=== PATIENT | male | born 1965 | race Caucasian/White ===

== ENCOUNTER 2020-12-26 15:49 | Inpatient (IN) ==
--- OUTSIDE RECORDS SUMMARY | 2020-12-26 15:51 | External Medical Summary | Continuity of Care Document ---
:1965 Author Name Yvonne Armenta, Provider Address Unavailable Unavailable , Care Team Providers Name Role Phone Danitza Mccoy Unavailable 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) Elevated blood pressure reading without diagnosis of hypertension (796.2) (R03.0) Elbow pain (719.42) (M25.529) Olecranon bursitis of left elbow (726.33) (M70.22) Prostate cancer screening (V76.44) (Z12.5) Allergies and Adverse Reactions No Known Drug Allergies (Allergy) Medications methylPREDNISolone 4 MG Oral Tablet Ther apy Pack; Take medication per package directions ANTONIO Paige Start: 09-Jun-2018 Quantity: 1 21 Tablet Pack Refills: 0 Procedures History of Knee Arthroscopy With Medial Meniscus Repair Status: Completed History of Tonsillectomy Status: Complet ed Immunizations Tdap (Adacel) On: 05-Jan-2016 17:58 Lot #: [id number], SANOFI PA[employer]UR Family History Mother Family history of diabetes mellitus (V18.0) (Z83.3) Status: Active Family history of Colostomy status (V44.3) (Z93.3) Status: A ctive Father Family history of hypertension (V17.49) (Z82.49) Status: Act lindsey Family history of Recurrent kidney stones (592.0) (N20.0) St atus: Active Social History - Smoking Status Never smoked tobacco Interventions Follow-ups/ReferralsFollow-up visit in 6 months; Done: 24 Jun 2018 Discussion/SummaryOlecranon bursitis of the left elbow - resolved. Cautioned for symptoms of recurrent bursitis. Advised ED with any symptoms of redness or swelling accompanied by fever. 'Elbow pain resolved - except for leaning on the elbow. Cautioned against direct bony pressure. Advised padding with other arm/hand or pillow if he must lean on his left elbow. Plan to follow up in January, labs late December as noted. Plan of Treatment Planned Observations Planned Goals not documented Results No Known Results Results not documented Encounters Appointment; Danitza Paige CRNP 24-Jun-2018 17:00 Encounter Diagnosis: Problem not documented
--- OUTSIDE RECORDS SUMMARY | 2020-12-26 15:51 | External Medical Summary | Continuity of Care Document ---
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) Internal hemorrhoids (455.0) (K64.8) Colon cancer screening (V76.51) (Z12.11) Paronychia of finger of right hand (681.02) (L03.011) Prostate cancer screening (V76.44) (Z12.5) Olecranon bursitis of left elbow (726.33) (M70.22) Elbow pain (719.42) (M25.529) Allergies and Adverse Reactions No Known Drug Allergies (Allergy) Medications methylPREDNISolone 4 MG Oral Tablet Ther apy Pack; Take medication per package directions ANTONIO Paige Start: 09-Jun-2018 Quantity: 1 21 Tablet Pack Refills: 0 Procedures History of Knee Arthroscopy With Medial Meniscus Repair Status: Completed History of Tonsillectomy Status: Complet ed Immunizations Tdap (Adacel) On: 05-Jan-2016 17:58 Lot #: [id number], SANOFI PASTEUR Family History Mother Family history [...]
[2020-12-26] MEDS ORDERED: ASPIRIN CHEW 324 MG PO STA (17:03)
[2020-12-26 17:51] LABS: Basophils # (auto) 0.01 K/uL (0-0.2); Basophils % (auto) 0.2 %; Eosinophils # (auto) 0.02 K/uL (0-0.5); Eosinophils % (auto) 0.5 %; Hematocrit (blood only) 43.5 % (42-52); Hemoglobin 14.9 g/dL (14.0-18.0); Immature Granulocytes # (auto) 0.01 K/uL (0.00-0.02); Immature Granulocytes % (auto) 0.2 %; Lymphocytes # (auto) 0.72 K/uL (1.2-3.4); Lymphocytes % (auto) 16.3 %; Mean Corpuscular Hemoglobin 33.2 pg (25-34); Mean Corpuscular Hgb Conc 34.3 g/dL (32-36); Mean Corpuscular Volume 96.9 fL (80-100); Mean Platelet Volume 10.7 fL (7.4-10.4); Monocytes # (auto) 0.38 K/uL (0.11-0.59); Monocytes % (auto) 8.6 %; Neutrophils # (auto) 3.28 K/uL (1.4-6.5); Neutrophils % (auto) 74.2 %; Platelet Count 197 K/uL (130-400); RDW Coefficient of Variation 14.3 % (11.5-14.5); RDW Standard Deviation 50.9 fL (36.4-46.3); Red Blood Count 4.49 M/uL (4.7-6.1); White Blood Count 4.42 K/uL (4.8-10.8)
[2020-12-26 18:00] LABS: Albumin Level 3.7 gm/dl (3.4-5.0); BUN Creatinine Ratio 14.2 (10-20); Calcium 9.2 mg/dl (8.5-10.1); Creatinine Clr Calc Pharmacy 97.1 ml/min; Est GFR (African American) 90.7; Est GFR (Non-African American) 78.3; INR 1.1 (0.9-1.1); Partial Thromboplastin Time 28.9 Seconds (21.0-31.0); Potassium 4.1 mmol/L (3.5-5.1); Prothrombin Time 11.8 Seconds (9.0-12.0)
[2020-12-26 18:04] LABS: D Dimer 540 ug/L FEU (0-500)
[2020-12-26 18:11] LABS: HCO3 VBG 26 mmol/L; PCO2 VBG 42 mmHg (38-50); PO2 VBG 30 mmHg; pH VBG 7.41 (7.36-7.41)
[2020-12-26 18:11] LABS: Albumin Globulin Ratio 0.8 (0.9-2); Bilirubin,Total 0.8 mg/dl (0.2-1); Globulin 4.4 gm/dl (2.5-4.0); Total Protein 8.1 gm/dl (6.4-8.2); Troponin I 0.123 ng/ml (0-0.045)
[2020-12-26 18:14] LABS: Oxygen Saturation VBG < 60.0 %
--- NOTE | 2020-12-26 18:50 | Emergency Department Note ---
History of Present Illness General Chief complaint: Sinus Congestion/Pressure Stated complaint: Sinus congestion Time Seen by Provider: 12/26/20 16:52 History of Present Illness Provider complaint: Sinus pain, runny nose, cough, difficulty breathing Onset (ago): week(s) 1 Maximum Pain Intensity: 0 55-year-old male presents emergency department for shortness of breath, sinus congestion, runny nose, and cough. Patient reports no hemoptysis. Patient states he went to an acute care for Covid test where they did an EKG and then referred him to the emergency department. Patient denies any chest pain. Home Medications Medication Instructions Recorded Confirmed Type naproxen sodium [Aleve] 220 mg PO QAM 12/26/20 12/26/20 History Allergies Allergy/AdvReac Type Severity Reaction Status Date / Time No Known Allergies Allergy Verified 12/26/20 19:36 Past Med/Surg History Medical History (Updated 12/26/20 @ 20:05 by Roman Purcell) No pertinent family history No pertinent past medical history Surgical History (Updated 12/26/20 @ 20:01 by Roman Purcell) No pertinent past surgical history Social History Smoking Status: Never smoker Feels Safe at Home: Yes Review of Systems A total of 10 systems reviewed and were otherwise negative Physical Exam Vital Signs Vital Signs - 24 hr 12/26/20 15:53 12/26/20 17:00 12/26/20 17:30 Temperature 36.8 C Temperature Source Temporal Artery Scan Pulse Rate 100 H 113 H Pulse Rate from SpO2 Sensor 113 H Respiratory Rate 16 16 18 Respiratory Effort / Characteristics Non-Labored Non-Labored Respiratory Depth Normal Blood Pressure 121/90 131/89 Blood Pressure Mean 100 95 Pulse Oximetry 95 95 94 Oxygen Delivery Method Room Air Room Air Sepsis Recent Fever Within 48 Hours No Sepsis New/Unexplained Change in Mental Status No Sepsis Action Taken by Nursing No Action Required 12/26/20 17:31 12/26/20 18:00 12/26/20 18:30 Temperature Temperature Source Pulse Rate 107 H Pulse Rate from SpO2 Sensor 107 H Respiratory Rate 18 Respiratory Effort / Characteristics Non-Labored Respiratory Depth Blood Pressure 119/73 Blood Pressure Mean 84 Pulse Oximetry 94 92 Oxygen Delivery Method Room Air Room Air Sepsis Recent Fever Within 48 Hours Sepsis New/Unexplained Change in Mental Status Sepsis Action Taken by Nursing 12/26/20 19:00 Temperature Temperature Source Pulse Rate Pulse Rate from SpO2 Sensor Respiratory Rate 18 Respiratory Effort / Characteristics Non-Labored Respiratory Depth Blood Pressure Blood Pressure Mean Pulse Oximetry 92 Oxygen Delivery Method Room Air Sepsis Recent Fever Within 48 Hours Sepsis New/Unexplained Change in Mental Status Sepsis Action Taken by Nursing Physical Exam GENERAL: He is oriented to person, place, and time. He appears well-developed and well-nourished. He does not appear distressed. HENT: Exam performed. - Head: Normocephalic and atraumatic. - Right Ear: External ear normal. No mastoid tenderness. - Left Ear: External ear normal. No mastoid tenderness. - Mouth/Throat: The oropharynx is clear and moist. No trismus in the jaw. No dental abscesses or uvula swelling. No oropharyngeal exudate or tonsillar abscesses. EYES: Conjunctivae and EOM are normal. Pupils are equal, round, and reactive to light. Right eye exhibits no discharge. Left eye exhibits no discharge. No scleral icterus. NECK: Normal range of motion. Neck supple. No JVD present. No spinous process tenderness present. No carotid bruit present. No rigidity. No tracheal deviation and normal range of motion present. No Brudzinski's sign and no Kernig's sign noted. CV: Normal rate, regular rhythm, normal heart sounds and intact distal pulses. There is no peripheral edema. Palpable radial pulses bue. PULM/CHEST: Effort normal and breath sounds normal. No respiratory distress. No stridor. He has no wheezes. He has no rales. - Chest Wall: He exhibits no tenderness. ABD: The abdomen is soft. Bowel sounds are normal. He has no distension. No mass is present. There is no tenderness. There is no rebound, no guarding, no Delacruz's sign and no tenderness at McBurney's point. Rovsig negative. MUSC/SKEL: Normal range of motion. There is no peripheral edema, tenderness or deformity. LYMPH: No cervical adenopathy. NEURO: He is alert and oriented to person, place, and time. He has normal strength. No cranial nerve deficit or sensory deficit. Coordination and gait normal. GCS eye subscore is 4. GCS verbal subscore is 5. GCS motor subscore is 6. Cerebellar tests wnl. SKIN: Skin is warm and dry. He is not diaphoretic. PSYCH: He has a normal mood and affect. Behavior is normal. Judgment and thought content normal. Course Course 1651: The patient was evaluated in room B12. A complete history and physical exam was performed. Patient was seen in full airborne precautions. Patient was seen in N95's, gloves, gowns, face shield by myself and staff. Cardiac monitoring: An order was placed for continuous cardiac monitoring. The monitor shows a rate of 110 with sinus tachycardia rhythm 2001: Patient remains tachycardic. His oxygen saturation has been stable. Not requiring supplemental oxygen. Labs show an elevated troponin. EKG showed T wave inversion in lead aVL. Patient is Covid positive. No PE on CTA of the chest. Patient will be admitted to the [facility] hospitalist service. Dr. Peres notified. Administered Medications Discontinued Medications Aspirin (Aspirin Chew 324 Mg) 324 mg PO NOW STA Stop: 12/26/20 17:04 Last Admin: 12/26/20 17:40 Dose: 324 mg Documented by: [id number] Ioversol (Optiray 320 125ml) 116 ml IV ONCE ONE Stop: 12/26/20 19:19 Last Admin: 12/26/20 19:18 Dose: 116 ml Documented by: [id number] Medical Decision Making Laboratory Data Result diagrams: 12/26/20 17:20 12/26/20 17:20 Lab Results 12/26/20 12/26/20 12/26/20 Range/Units 17:20 17:20 17:20 WBC 4.42 L (4.8-10.8) K/uL RBC 4.49 L (4.7-6.1) M/uL Hgb 14.9 (14.0-18.0) g/dL Hct 43.5 (42-52) % MCV 96.9 (80-100) fL MCH 33.2 (25-34) pg MCHC 34.3 (32-36) g/dL RDW Std Deviation 50.9 H (36.4-46.3) fL RDW Coeff of Brannon 14.3 (11.5-14.5) % Plt Count 197 (130-400) K/uL MPV 10.7 H (7.4-10.4) fL Immature Gran % (Auto) 0.2 % Neut % (Auto) 74.2 % Lymph % (Auto) 16.3 % Bucks % (Auto) 8.6 % Eos % (Auto) 0.5 % Baso % (Auto) 0.2 % Neut # (Auto) 3.28 (1.4-6.5) K/uL Lymph # (Auto) 0.72 L (1.2-3.4) K/uL Bucks # (Auto) 0.38 (0.11-0.59) K/uL Eos # (Auto) 0.02 (0-0.5) K/uL Baso # (Auto) 0.01 (0-0.2) K/uL Immature Gran # (Auto) 0.01 (0.00-0.02) K/uL PT (9.0-12.0) Seconds INR (0.9-1.1) APTT (21.0-31.0) Seconds PTT Ratio D-Dimer (0-500) ug/L FEU VBG pH (7.36-7.41) VBG pCO2 (38-50) mmHg VBG pO2 mmHg VBG HCO3 mmol/L VBG O2 Saturation % VBG Base Excess mEq/L Barometric Pressure mm/Hg Sodium 133 L (136-145) mmol/L Potassium 4.1 (3.5-5.1) mmol/L Chloride 98 (98-107) mmol/L Carbon Dioxide 26 (21-32) mmol/L Anion Gap 8.0 (3-11) BUN 15 (7-18) mg/dl Creatinine 1.07 (0.6-1.4) mg/dl Est Cr Clr Drug Dosing 97.1 ml/min Est GFR ( Amer) 90.7 Est GFR (Non-Af Amer) 78.3 BUN/Creatinine Ratio 14.2 (10-20) Glucose 102 H (70-99) mg/dl Lactate (0.4-2.0) mmol/L Calcium 9.2 (8.5-10.1) mg/dl Magnesium 2.0 (1.8-2.4) mg/dl Total Bilirubin 0.8 (0.2-1) mg/dl AST 79 H (15-37) U/L ALT 185 H (12-78) U/L Alkaline Phosphatase 83 (45-117) U/L Troponin I 0.123 H* (0-0.045) ng/ml Total Protein 8.1 (6.4-8.2) gm/dl Albumin 3.7 (3.4-5.0) gm/dl Globulin 4.4 H (2.5-4.0) gm/dl Albumin/Globulin Ratio 0.8 L (0.9-2) Procalcitonin 0.28 (0-0.5) ng/ml COVID-19 Eval Order SARS-CoV-2, RNA, NAAT (NEGATIVE) 12/26/20 12/26/20 12/26/20 Range/Units 17:20 17:31 17:31 WBC (4.8-10.8) K/uL RBC (4.7-6.1) M/uL Hgb (14.0-18.0) g/dL Hct (42-52) % MCV (80-100) fL MCH (25-34) pg MCHC (32-36) g/dL RDW Std Deviation (36.4-46.3) fL RDW Coeff of Brannon (11.5-14.5) % Plt Count (130-400) K/uL MPV (7.4-10.4) fL Immature Gran % (Auto) % Neut % (Auto) % Lymph % (Auto) % Bucks % (Auto) % Eos % (Auto) % Baso % (Auto) % Neut # (Auto) (1.4-6.5) K/uL Lymph # (Auto) (1.2-3.4) K/uL Bucks # (Auto) (0.11-0.59) K/uL Eos # (Auto) (0-0.5) K/uL Baso # (Auto) (0-0.2) K/uL Immature Gran # (Auto) (0.00-0.02) K/uL PT 11.8 (9.0-12.0) Seconds INR 1.1 (0.9-1.1) APTT 28.9 (21.0-31.0) Seconds PTT Ratio 1.0 D-Dimer 540 H* (0-500) ug/L FEU VBG pH (7.36-7.41) VBG pCO2 (38-50) mmHg VBG pO2 mmHg VBG HCO3 mmol/L VBG O2 Saturation % VBG Base Excess mEq/L Barometric Pressure mm/Hg Sodium (136-145) mmol/L Potassium (3.5-5.1) mmol/L Chloride (98-107) mmol/L Carbon Dioxide (21-32) mmol/L Anion Gap (3-11) BUN (7-18) mg/dl Creatinine (0.6-1.4) mg/dl Est Cr Clr Drug Dosing ml/min Est GFR ( Amer) Est GFR (Non-Af Amer) BUN/Creatinine Ratio (10-20) Glucose (70-99) mg/dl Lactate (0.4-2.0) mmol/L Calcium (8.5-10.1) mg/dl Magnesium (1.8-2.4) mg/dl Total Bilirubin (0.2-1) mg/dl AST (15-37) U/L ALT (12-78) U/L Alkaline Phosphatase (45-117) U/L Troponin I (0-0.045) ng/ml Total Protein (6.4-8.2) gm/dl Albumin (3.4-5.0) gm/dl Globulin (2.5-4.0) gm/dl Albumin/Globulin Ratio (0.9-2) Procalcitonin (0-0.5) ng/ml COVID-19 [facility] SARS-[facility]-2, RNA, NAAT POSITIVE A* (NEGATIVE) 12/26/20 12/26/20 Range/Units 17:58 17:58 WBC (4.8-10.8) K/uL RBC (4.7-6.1) M/uL Hgb (14.0-18.0) g/dL Hct (42-52) % MCV (80-100) fL MCH (25-34) pg MCHC (32-36) g/dL RDW Std Deviation (36.4-46.3) fL RDW Coeff of Brannon (11.5-14.5) % Plt Count (130-400) K/uL MPV (7.4-10.4) fL Immature Gran % (Auto) % Neut % (Auto) % Lymph % (Auto) % Bucks % (Auto) % Eos % (Auto) % Baso % (Auto) % Neut # (Auto) (1.4-6.5) K/uL Lymph # (Auto) (1.2-3.4) K/uL Bucks # (Auto) (0.11-0.59) K/uL Eos # (Auto) (0-0.5) K/uL Baso # (Auto) (0-0.2) K/uL Immature Gran # (Auto) (0.00-0.02) K/uL PT (9.0-12.0) Seconds INR (0.9-1.1) APTT (21.0-31.0) Seconds PTT Ratio D-Dimer (0-500) ug/L FEU VBG pH 7.41 (7.36-7.41) VBG pCO2 42 (38-50) mmHg VBG pO2 30 mmHg VBG HCO3 26 mmol/L VBG O2 Saturation < 60.0 % VBG Base Excess 1.0 mEq/L Barometric Pressure 731.5 mm/Hg Sodium (136-145) mmol/L Potassium (3.5-5.1) mmol/L Chloride (98-107) mmol/L Carbon Dioxide (21-32) mmol/L Anion Gap (3-11) BUN (7-18) mg/dl Creatinine (0.6-1.4) mg/dl Est Cr Clr Drug Dosing ml/min Est GFR ( Amer) Est GFR (Non-Af Amer) BUN/Creatinine Ratio (10-20) Glucose (70-99) mg/dl Lactate 1.2 (0.4-2.0) mmol/L Calcium (8.5-10.1) mg/dl Magnesium (1.8-2.4) mg/dl Total Bilirubin (0.2-1) mg/dl AST (15-37) U/L ALT (12-78) U/L Alkaline Phosphatase (45-117) U/L Troponin I (0-0.045) ng/ml Total Protein (6.4-8.2) gm/dl Albumin (3.4-5.0) gm/dl Globulin (2.5-4.0) gm/dl Albumin/Globulin Ratio (0.9-2) Procalcitonin (0-0.5) ng/ml COVID-19 Eval Order SARS-CoV-2, RNA, NAAT (NEGATIVE) Imaging Data Radiologist's Impression: XR chest 1V portable CLINICAL HISTORY: SEPSIS COMPARISON STUDY: No previous studies for comparison. FINDINGS: Moderate cardiomegaly is noted. There is no pneumothorax or pleural effusion. Note is made of multifocal bilateral airspace opacities. There is no evidence for pulmonary edema. IMPRESSION: 1. Multifocal bilateral airspace opacities suggestive of an infectious process. 2. Cardiomegaly. ACT 112: Negative or not required by law. Electronically signed by: Bernardo Chino M.D. 12/26/2020 7:53 PM Dictated: 12/26/[id number]: 12/26/201951 CT ANGIOGRAPHY OF THE CHEST, PULMONARY EMBOLUS PROTOCOL CLINICAL HISTORY: Cough. Shortness of breath. Covid. COMPARISON STUDY: No previous studies for comparison. TECHNIQUE: Following IV administration of 116 mL of Optiray-320, helical axial images of the chest were obtained utilizing the pulmonary embolus protocol. Maximal intensity projections and sagittal and coronal reformats were viewed on an independent 3D workstation. IV contrast was administered without complication. Automated exposure control was utilized for the study. A dose lowering technique was utilized adhering to the principles of ALARA. CT DOSE: 585.28 mGycm FINDINGS: No pulmonary emboli are identified. Moderate cardiomegaly is noted. There is no pericardial effusion. Moderate coronary artery calcification is present. Central airways are patent. Note is made of multiple mildly enlarged mediastinal lymph nodes. Index right paratracheal lymph node measures 1.4 cm in short axis diameter. The ascending aorta is ectatic, measuring approximate 4 cm in caliber. No pneumothorax or pleural effusion is noted. Central airways are patent. Moderate multifocal groundglass opacities within the lungs. There is no cavitation. Visualized portions of the upper abdomen demonstrate hepatic steatosis. A 1.6 cm hyperdense right hepatic dome lesion is indeterminate. There are parenchymal calcifications within the pancreas which may indicate chronic pancreatitis. IMPRESSION: 1. No pulmonary emboli identified. 2. Moderate multifocal groundglass opacities within the lungs consistent with an infectious process. 3. Moderate cardiomegaly and coronary artery calcification. 4. Multiple mildly enlarged mediastinal lymph nodes. These are probably reactive however a follow-up chest CT in 3 months to ensure resolution is recommended. 5. Hepatic steatosis. ACT 112: Negative or not required by law. Electronically signed by: Bernardo Chino M.D. 12/26/2020 7:52 PM Dictated: 12/26/[id number]: 12/26/201942 ECG Data Indication: + SOB/dyspnea Rate (beats per minute): 124 Rhythm: + sinus tachycardia ECG Intervals/blocks: + Normal QRS, + Normal DC and + Normal QT-c ECG ST segments: + Normal ST segments and + T-wave inversions (aVL) ECG Findings: + [facility] Narrative 165: The patient was evaluated in room B12. A complete history and physical exam was performed. Patient was seen in full airborne precautions. Patient was seen in N95's, gloves, gowns, face shield by myself and staff. Cardiac monitoring: An order was placed for continuous cardiac monitoring. The monitor shows a rate of 110 with sinus tachycardia rhythm 2001: Patient remains tachycardic. His oxygen saturation has been stable. Not requiring supplemental oxygen. Labs show an elevated troponin. EKG showed T w ave inversion in lead aVL. Patient is Covid positive. No PE on CTA of the chest. Patient will be admitted to the [facility] hospitalist service. Dr. Peres notified. Impression & Plan Pneumonia due to 2019-nCoV, Elevated troponin Discharge Plan Visit Data Chief Complaint: Sinus Congestion/Pressure Stated Complaint: Sinus congestion ED Provider: Roman Purcell Discharge Problem: Pneumonia due to 2019-nCoV, Elevated troponin Patient Disposition: Admitted As Inpatient Forms Stand Alone Forms: My [facility] Prescriptions Prescriptions: No Action naproxen sodium [Aleve] 220 mg Tablet 220 mg PO QAM RF: 0 Referrals Referrals: Zion Mena III, MD [Primary Care Provider] -
[2020-12-26] MEDS ORDERED: OPTIRAY 320 125ml IV ONE (19:18)
--- NOTE | 2020-12-26 19:54 | CT Scan Report ---
CT ANGIOGRAPHY OF THE CHEST, PULMONARY EMBOLUS PROTOCOL CLINICAL HISTORY: Cough. Shortness of breath. Covid. COMPARISON STUDY: No previous studies for comparison. TECHNIQUE: Following IV administration of 116 mL of Optiray-320, helical axial images of the chest we re obtained utilizing the pulmonary embolus protocol. Maximal intensity projections and sagittal and coronal reformats were viewed on an independent 3D workstation. IV contrast was administered withou t complication. Automated exposure control was utilized for the study. A dose lowering technique wa s utilized adhering to the principles of ALARA. CT DOSE: 585.28 mGycm FINDINGS: No pulmonary emboli are identified. Moderate cardiomegaly is noted. There is no pericardia l effusion. Moderate coronary artery calcification is present. Central airways are patent. Note is ma de of multiple mildly enlarged mediastinal lymph nodes. Index right paratracheal lymph node measures 1.4 cm in short axis diameter. The ascending aorta is ectatic, measuring approximate 4 cm in caliber. No pneumothorax or pleural effusion is noted. Central airways are patent. Moderate multifocal ground glass opacities within the lungs. There is no cavitation. Visualized portions of the upper abdomen de monstrate hepatic steatosis. A 1.6 cm hyperdense right hepatic dome lesion is indeterminate. There ar e parenchymal calcifications within the pancreas which may indicate chronic pancreatitis. IMPRESSION: 1. No pulmonary emboli identified. 2. Moderate multifocal groundglass opacities within the lungs consistent with an infectious process. 3. Moderate cardiomegaly and coronary artery calcification. 4. Multiple mildly enlarged mediastinal lymph nodes. These are probably reactive however a follow-up chest CT in 3 months to ensure resolution is recommended. 5. Hepatic steatosis. ACT 112: Negative or not required by law. Electronically signed by: Bernardo Chino M.D. 12/26/2020 7:52 PM
--- NOTE | 2020-12-26 19:54 | XRay Report ---
XR chest 1V portable CLINICAL HISTORY: SEPSIS COMPARISON STUDY: No previous studies for comparison. FINDINGS: Moderate cardiomegaly is noted. There is no pneumothorax or pleural effusion. Note is made of multifocal bilateral airspace opacities. There is no evidence for pulmonary edema. IMPRESSION: 1. Multifocal bilateral airspace opacities suggestive of an infectious process. 2. Cardiomegaly. ACT 112: Negative or not required by law. Electronically signed by: Bernardo Chino M.D. 12/26/2020 7:53 PM
[2020-12-26] MEDS ORDERED: MAGNESIUM HYDROXIDE SUSP 30 ML UDC PO PRN (22:05)
[2020-12-26] MEDS ORDERED: ACETAMINOPHEN 325 MG TAB PO PRN (22:05)
[2020-12-26] MEDS ORDERED: NITROGLYCERIN SL 0.4 MG/TAB TAB SL PRN (22:05)
[2020-12-26] MEDS ORDERED: ALUMINUM/MAGNESIUM SUSP 30 ML UDC PO PRN (22:05)
[2020-12-26] MEDS ORDERED: DEXAMETHASONE SOD INJ 10 MG/ML VIAL IV ONE (22:05)
[2020-12-26] MEDS ORDERED: ONDANSETRON INJ 2 MG/ML 2 ML VIAL IV PRN (22:05)
[2020-12-26] MEDS ORDERED: dexAMETHasone 6 MG in SYRINGE 0 ML IV ONE (22:30)
--- NOTE | 2020-12-27 01:52 | History & Physical Report ---
Date of Service December 26, 2020 Assessment & Plan (1) Elevated troponin: The patient will be admitted to telemetry for serial cardiac enzymes, serial EKG's, cardiac rhythm monitoring and a 2-D echocardiogram with Dopplers. Troponin upon admission 0.123. Patient has no symptoms of chest pain, shortness of breath or dyspnea on exertion, independent of nasal congestion. 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 Suspect type II NH, supply demand mismatch. Present on Admission?: Yes (2) Pneumonia due to 2019-nCoV: Multifocal pneumonia noted on CT scan, however, patient has no issues with breathing other than difficulty breathing through his nose when his nasal congestion. Place on Decadron 6 mg IV every morning, with first dose in ED tonight. Symptoms have been ongoing for at least 5 days to 7 days, and does not qualify for remdesivir or convalescent plasma. Ventolin HFA 2 puffs every 2 hours as needed Zinc sulfate 220 mg p.o. daily Nasal cannula, titrate to keep pulse ox 94 to 95% Present on Admission?: Yes (3) Multifocal pneumonia: See above Present on Admission?: Yes (4) Hypoxia: See above Present on Admission?: Yes (5) Abnormal LFTs: Abnormal liver function test/hepatic steatosis- May be an element secondary to COVID-19 infection as well. Follow serial laboratories. Present on Admission?: Yes (6) Hepatic steatosis: See above Present on Admission?: Yes History of Present Illness Chief Complaint: The patient presents to the emergency department with complaint of sinus congestion and runny nose, which in turn can lead to intermittent abeba rtness of breath. Primary Care Provider: Zion Mena MD The patient is a 55-year-old male with no significant PMH, who presents to the emergency department with what he felt was a sinus infection. 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 In the emergency department, he underwent testing including laboratories which showed the following: Sodium 133, D-dimer 540, AST 79, ALT 185, troponin 0 0.123 and COVID-19 positivity. Chest x-ray suggested multifocal pneumonia. The patient's lowest pulse ox was 92% on room air. Allergies Allergy/AdvReac Type Severity Reaction Status Date / Time No Known Allergies Allergy Verified 12/26/20 19:36 Home Medications Medication Instructions Recorded Confirmed Type naproxen sodium [Aleve] 220 mg PO QAM 12/26/20 12/26/20 History Past Med/Surg History Medical History (Updated 12/27/20 @ 02:10 by Peterson Smith MD) Morbid obesity No pertinent family history No pertinent past medical history Surgical History (Updated 12/26/20 @ 20:01 by Roman Purcell) No pertinent past surgical history Social History Smoking Status: Never smoker Second Hand Exposure: No; Do You Dip or Chew Tobacco: No; Tobacco Cessation Education Requested by Patient: No Hx Alcohol Use: Yes Alcohol type: beer Hx Substance Use: No Preferred Language: Danish Communication Ability: Effective Beliefs That Will Affect Care: None Current Living Situation: Significant Other Other Information That Helps Us Care for You: No Feels Safe at Home: Yes Safety Concerns: Feels Safe At This Time Assistive Devices: None Review of Systems Review of Systems: The patient denies chest pain, palpitations, lower extremity swelling, sore throat, fevers, chills, sweats, fatigue, nausea, vomiting, diarrhea , constipation, abdominal pain, pelvic pain, blood in urine or stool, dysuria, urinary frequency or urgency, lightheadedness, dizziness, headache, memory loss, loss of consciousness, rash, abnormal bruising or bleeding, imbalance, focal or generalized weakness, numbness or tingling in arms or legs, generalized arthralgias or myalgias, back or neck pain, or night sweats. The review of systems is otherwise negative other than for that already noted above, and at least 10 systems have been reviewed. Physical Exam Physical Exam: The patient is awake, alert and oriented 3, well developed and well nourished, normocephalic and atraumatic, lying in bed and in no acute distress. HEENT--PERRL, EOMI, mucous membranes and oropharynx normal. Neck--supple. No JVD. No bruits. Thyroid normal, trachea midline, no adenopathy. Heart--normal S1 and S2. No murmurs, rubs or gallops. Lungs--clear bilaterally, no respiratory distress, no accessory muscle use. Abdomen--normal bowel sounds and soft. Nontender. Nondistended. Morbidly obese Extremities--no cyanosis or clubbing. No edema. Dermatologic--normal skin turgor, normal color, no abnormal lymph nodes, no rash. Neurologic--cranial nerves II through XII grossly intact. Rheumatologic--normal range of motion. Psychiatric--normal affect. Results & Data Results & Data ([facility]) Vital Signs (Past 12 Hours) Vital Signs Temp Pulse Resp BP Pulse Ox 12/26/20 21:08 103 H 18 104/65 93 12/26/20 21:00 103 H 18 104/65 93 12/26/20 20:30 94 H 110/70 92 12/26/20 20:00 109 H 18 129/91 92 12/26/20 19:30 108 H 119/76 94 12/26/20 19:00 18 92 12/26/20 18:30 107 H 119/73 92 12/26/20 18:00 18 94 12/26/20 17:30 113 H 18 131/89 94 12/26/20 17:00 16 95 12/26/20 15:53 98.2 F 100 H 16 121/90 95 Laboratory Results Laboratory Results WBC 4.42 K/uL (4.8-10.8) L 12/26/20 17:20 RBC 4.49 M/uL (4.7-6.1) L 12/26/20 17:20 Hgb 14.9 g/dL (14.0-18.0) 12/26/20 17:20 Hct 43.5 % (42-52) 12/26/20 17:20 MCV 96.9 fL (80-100) 12/26/20 17:20 MCH 33.2 pg (25-34) 12/26/20 17:20 MCHC 34.3 g/dL (32-36) 12/26/20 17:20 RDW Std Deviation 50.9 fL (36.4-46.3) H 12/26/20 17:20 RDW Coeff of Brannon 14.3 % (11.5-14.5) 12/26/20 17:20 Plt Count 197 K/uL (130-400) 12/26/20 17:20 MPV 10.7 fL (7.4-10.4) H 12/26/20 17:20 Immature Gran % (Auto) 0.2 % 12/26/20 17:20 Neut % (Auto) 74.2 % 12/26/20 17:20 Lymph % (Auto) 16.3 % 12/26/20 17:20 [place] % (Auto) 8.6 % 12/26/20 17:20 Eos % (Auto) 0.5 % 12/26/20 17:20 Baso % (Auto) 0.2 % 12/26/20 17:20 Neut # (Auto) 3.28 K/uL (1.4-6.5) 12/26/20 17:20 Lymph # (Auto) 0.72 K/uL (1.2-3.4) L 12/26/20 17:20 [place] # (Auto) 0.38 K/uL (0.11-0.59) 12/26/20 17:20 Eos # (Auto) 0.02 K/uL (0-0.5) 12/26/20 17:20 Baso # (Auto) 0.01 K/uL (0-0.2) 12/26/20 17:20 Immature Gran # (Auto) 0.01 K/uL (0.00-0.02) 12/26/20 17:20 PT 11.8 Seconds (9.0-12.0) 12/26/20 17:20 INR 1.1 (0.9-1.1) 12/26/20 17:20 APTT 28.9 Seconds (21.0-31.0) 12/26/20 17:20 PTT Ratio 1.0 12/26/20 17:20 D-Dimer 540 ug/L FEU (0-500) H* 12/26/20 17:20 VBG pH 7.41 (7.36-7.41) 12/26/20 17:58 VBG pCO2 42 mmHg (38-50) 12/26/20 17:58 VBG pO2 30 mmHg 12/26/20 17:58 VBG HCO3 26 mmol/L 12/26/20 17:58 VBG O2 Saturation < 60.0 % 12/26/20 17:58 VBG Base Excess 1.0 mEq/L 12/26/20 17:58 Barometric Pressure 731.5 mm/Hg 12/26/20 17:58 Sodium 133 mmol/L (136-145) L 12/26/20 17:20 Potassium 4.1 mmol/L (3.5-5.1) 12/26/20 17:20 Chloride 98 mmol/L (98-107) 12/26/20 17:20 Carbon Dioxide 26 mmol/L (21-32) 12/26/20 17:20 Anion Gap 8.0 (3-11) 12/26/20 17:20 BUN 15 mg/dl (7-18) 12/26/20 17:20 Creatinine 1.07 mg/dl (0.6-1.4) 12/26/20 17:20 Est Cr Clr Drug Dosing 97.1 ml/min 12/26/20 17:20 Est GFR ( Amer) 90.7 12/26/20 17:20 Est GFR (Non-Af Amer) 78.3 12/26/20 17:20 BUN/Creatinine Ratio 14.2 (10-20) 12/26/20 17:20 Glucose 102 mg/dl (70-99) H 12/26/20 17:20 Lactate 1.2 mmol/L (0.4-2.0) 12/26/20 17:58 Calcium 9.2 mg/dl (8.5-10.1) 12/26/20 17:20 Magnesium 2.0 mg/dl (1.8-2.4) 12/26/20 17:20 Total Bilirubin 0.8 mg/dl (0.2-1) 12/26/20 17:20 AST 79 U/L (15-37) H 12/26/20 17:20 ALT 185 U/L (12-78) H 12/26/20 17:20 Alkaline Phosphatase 83 U/L (45-117) 12/26/20 17:20 Troponin I 0.093 ng/ml (0-0.045) H* 12/26/20 22:33 Total Protein 8.1 gm/dl (6.4-8.2) 12/26/20 17:20 Albumin 3.7 gm/dl (3.4-5.0) 12/26/20 17:20 Globulin 4.4 gm/dl (2.5-4.0) H 12/26/20 17:20 Albumin/Globulin Ratio 0.8 (0.9-2) L 12/26/20 17:20 Procalcitonin 0.28 ng/ml (0-0.5) 12/26/20 17:20 COVID-19 Eval Order Covid19 IDNow [facility] 12/26/20 17:31 SARS-CoV-2, RNA, NAAT POSITIVE (NEGATIVE) A* 12/26/20 17:31 Diagnostic Findings [facility], [phone] XRay Report Patient: JANUARY GOYALAdmit Date: 12/26/20MR#: [id number]: [address] STAcct ID:[id number]: Date: 1965[facility] Zip: [facility] [place] [address]Mqd: 55Location: EDSex: MRoom/Bed:Att Phy:Diagnosis: Sinus congestionPri Phy: Zion Mena III, MDService Date: 12/26/20Fa Phy:Interpreting Phy: Bernardo Chino MDAdmit Phy: Ordering Phy: Roman Purcell MD cc: ~ XR chest 1V portable CLINICAL HISTORY: SEPSIS COMPARISON STUDY: No previous studies for comparison. FINDINGS: Moderate cardiomegaly is noted. There is no pneumothorax or pleural effusion. Note is made of multifocal bilateral airspace opacities. There is no evidence for pulmonary edema. IMPRESSION: 1. Multifocal bilateral airspace opacities suggestive of an infectious process. 2. Cardiomegaly. ACT 112: Negative or not required by law. Electronically signed by: Bernardo Chino M.D. 12/26/2020 7:53 PM Dictated: 12/26/201951Transcribed: 12/26/201951 [facility], [phone] CT Scan Report Patient: JANUARY GOYALAdmit Date: 12/26/20MR#: [id number]: [address] STAcct ID:[id number]: Date: 1965[facility] Zip: [place] [id number]: 55Location: EDSex: MRoom/Bed:Att Phy:Diagnosis: Sinus congestionPri Phy: Zion Mena, III, MDService Date: 12/26/20Fam Phy:Interpreting Phy: Bernardo Orellanait Phy: Ordering Phy: Roman Purcell MD cc: ~ CT ANGIOGRAPHY OF THE CHEST, PULMONARY EMBOLUS PROTOCOL CLINICAL HISTORY: Cough. Shortness of breath. Covid. COMPARISON STUDY: No previous studies for comparison. TECHNIQUE: Following IV administration of 116 mL of Optiray-320, helical axial images of the chest were obtained utilizing the pulmonary embolus protocol. Maximal intensity projections and sagittal and coronal reformats were viewed on an independent 3D workstation. IV contrast was administered without complication. Automated exposure control was utilized for the study. A dose lowering technique was utilized adhering to the principles of ALARA. CT DOSE: 585.28 mGycm FINDINGS: No pulmonary emboli are identified. Moderate cardiomegaly is noted. There is no pericardial effusion. Moderate coronary artery calcification is present. Central airways are patent. Note is made of multiple mildly enlarged mediastinal lymph nodes. Index right paratracheal lymph node measures 1.4 cm in short axis diameter. The ascending aorta is ectatic, measuring approximate 4 cm in caliber. No pneumothorax or pleural effusion is noted. Central airways are patent. Moderate multifocal groundglass opacities within the lungs. There is no cavitation. Visualized portions of the upper abdomen demonstrate hepatic steatosis. A 1.6 cm hyperdense right hepatic dome lesion is indeterminate. There are parenchymal calcifications within the pancreas which may indicate chronic pancreatitis. IMPRESSION: 1. No pulmonary emboli identified. 2. Moderate multifocal groundglass opacities within the lungs consistent with an infectious process. 3. Moderate cardiomegaly and coronary artery calcification. 4. Multiple mildly enlarged mediastinal lymph nodes. These are probably reactive however a follow-up chest CT in 3 months to ensure resolution is recommended. 5. Hepatic steatosis. ACT 112: Negative or not required by law. Electronically signed by: Bernardo Chino M.D. 12/26/2020 7:52 PM Dictated: 12/26/201942Transcribed: 12/26/201942 Code Status & VTE Plan Code Status Full code VTE Prophylaxis Plan VTE Prophylaxis will be ordered: Yes PG Care Time/CCT Total # of Minutes Spent Total Time Spent with Patient: Total time spent is greater than 50% in coordination of care (as documented) at patient's floor/unit and/or counseling patient: Coding Level of Care Code 48459 OBS Care - Level 3 Diagnoses Elevated troponin R77.8 Pneumonia due to 2019-nCoV U07.1; J12.82 Multifocal pneumonia J18.9 Hypoxia R09.02 Abnormal LFTs R94.5 Hepatic steatosis K76.0
[2020-12-27] MEDS ORDERED: ALBUTEROL HFA 8 GM INHALER INH PRN (02:14)
[2020-12-27 07:47] LABS: Albumin Globulin Ratio 0.8 (0.9-2); Albumin Level 3.6 gm/dl (3.4-5.0); BUN Creatinine Ratio 18.8 (10-20); Bilirubin,Total 0.6 mg/dl (0.2-1); Calcium 8.7 mg/dl (8.5-10.1); Creatinine Clr Calc Pharmacy 119.8 ml/min; Est GFR (African American) 113.4; Est GFR (Non-African American) 97.8; Globulin 4.4 gm/dl (2.5-4.0); Magnesium 2.6 mg/dl (1.8-2.4); Potassium 5.1 mmol/L (3.5-5.1); Troponin I 0.049 ng/ml (0-0.045)
[2020-12-27 08:03] LABS: Hematocrit (blood only) 43.5 % (42-52); Hemoglobin 15.2 g/dL (14.0-18.0); Mean Corpuscular Hemoglobin 33.5 pg (25-34); Mean Corpuscular Volume 95.8 fL (80-100); Mean Platelet Volume 10.4 fL (7.4-10.4); Platelet Count 192 K/uL (130-400); RDW Standard Deviation 49.6 fL (36.4-46.3); Red Blood Count 4.54 M/uL (4.7-6.1); White Blood Count 2.54 K/uL (4.8-10.8)
[2020-12-27 08:04] LABS: Mean Corpuscular Hgb Conc 34.9 g/dL (32-36)
[2020-12-27 08:05] LABS: Appearance Urine Clear (Clear); Bacteria Urine Automated Negative (Negative); Bilirubin Urine Negative (Negative); Blood Urine Negative (Negative); Color Urine Yellow; Glucose Urine UA Negative (Negative); Ketones Urine Trace (Negative); Leukocyte Esterase Urine Negative (Negative); Nitrite Urine Negative (Negative); Protein Urine 1+ (Negative); RBC Urine Automated 0-4 /hpf (0-4); Specific Gravity Urine 1.029 (1.000-1.030); Urobilinogen Urine Negative (Negative)
[2020-12-27 08:24] LABS: Lymphocytes # (auto) 0.38 K/uL (1.2-3.4); Monocytes # (auto) 0.15 K/uL (0.11-0.59); Monocytes % (auto) 5.9 %; Neutrophils # (auto) 2.01 K/uL (1.4-6.5); Neutrophils % (auto) 79.1 %
[2020-12-27] MEDS ORDERED: ZINC SULFATE 220 MG CAPSULE PO SCH (09:00)
[2020-12-27] MEDS ORDERED: dexAMETHasone 6 MG in SYRINGE 0 ML IV SCH (09:00)
--- NOTE | 2020-12-27 09:53 | Cardiology Consultation ---
Date of Consultation December 27, 2020 Assessment & Plan (1) Elevated troponin: Is very mildly elevated cardiac biomarkers which are more consistent with his viral infection than an acute coronary syndrome. This likely represents a mild myopathic process associated with COVID-19. He does not have symptoms of cardiac disease or decompensated heart failure. I do not believe this requires any specific treatment other than supportive care which is standard for his viral infection. I would recommend an outpatient echocardiogram in approximately 2 weeks provided he is asymptomatic at that time. (2) Coronary artery calcification: Certainly a marker for coronary disease and coronary events. Exertion at work without symptoms of coronary disease. I think would be reasonable to be aggressive with cardiac risk factor modification. If he is in the hospital tomorrow morning fasting lipid profile could be obtained. If not, his evaluation can be completed on an outpatient basis. (3) Ectatic aorta: And ascending aorta was reportedly near 4 cm in greatest dimension. Is not appear to have significant hypertension. I will see if there is evidence of dilation on his echocardiogram in a couple of weeks. This can be monitored over time. History of Present Illness Reason for Consultation: Elevated troponin, abnormal EKG Requesting Physician: Yany Attending Physician: Kobi Haney MD History of Present Illness The patient is a 55-year-old gentleman without a known history of cardiac disease who presented to an urgent care center for symptoms of upper respiratory congestion. Patient states that for few days leading up to his evaluation he had some nasal congestion, some sweats and mild discomfort in the nasal passages. At the urgent care center an EKG was obtained and based on the results of the EKG the patient was referred to the Medical Center for evaluation. At our facility the patient was noted to have a mildly elevated troponin in addition to a positive screen for COVID-19. Additional imaging also suggested a viral pneumonia. The patient denies any recent fevers or chills. 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 He often times visits a chiropractor for an adjustment. He has not had symptoms of chest discomfort. He works vigorously and has not had chest pressure with activity or at rest. He denies breathing difficulty. He is not reporting orthopnea although he is concerned about sleep apnea. He states that he will awaken at night and is told that he snores quite loudly. No history of lower extremity edema. No dizziness or lightheadedness. No history of syncope. No symptoms of palpitations. Allergies Allergy/AdvReac Type Severity Reaction Status Date / Time No Known Allergies Allergy Verified 12/26/20 19:36 Home Medications Medication Instructions Recorded Confirmed Type acetaminophen [Tylenol] 325 mg PO Q6H PRN #30 tab 12/27/20 Rx aspirin 81 mg PO DAILY #30 tab 12/27/20 Rx Patient History Medical History Morbid obesity No pertinent family history No pertinent past medical history Surgical History No pertinent past surgical history Family History Denies family history of Heart disease Social History Smoking Status: Never smoker Second Hand Exposure: No; Hx Alcohol Use: Yes Alcohol type: beer Hx Substance Use: No Preferred Language: Romanian Communication Ability: Effective Beliefs That Will Affect Care: None Current Living Situation: Significant Other Feels Safe at Home: Yes Assistive Devices: None Review of Systems Review of Systems: All systems reviewed & are unremarkable except as noted in HPI & below Physical Exam Physical Exam: The patient is alert and oriented. Mood and affect appeared normal. He answered all questions appropriately. HEENT: Pupils are equal and reactive to light and accommodation. Extraocular movements are intact. The sclerae are anicteric. Neuro: Cranial nerves intact Neck: Patient's neck is supple. He has palpable carotid pulses bilaterally without bruits on auscultation. There is no evidence of jugular venous distention. The thyroid is not enlarged. Lungs: Clear to auscultation bilaterally. He has good air movement without use of accessory muscles. No rales wheezes or rhonchi. Cardiac: Heart demonstrates a regular rate and rhythm. Normal S1 and S2. No murmurs on examination. Pulses: The patient has palpable radial pulses bilaterally that are equal in intensity Extremities: There was no evidence of hypoperfusion. There is no cyanosis or clubbing. There is no edema. Skin: I did not appreciate any rashes on examination today. Results & Data ([facility]) Vital Signs (Past 12 Hours) Vital Signs Temp Pulse Pulse Resp BP Pulse Ox 12/27/20 09:32 95 H 12/27/20 07:22 36.8 C 102 H 18 124/88 97 12/27/20 04:50 37.7 C H 105 H 12/27/20 02:59 36.6 C 103 H 22 123/87 98 12/27/20 00:00 36.8 C 105 H 20 138/83 97 12/26/20 23:50 107 H 12/26/20 22:27 36.8 C 104 H 16 133/86 93 12/26/20 22:00 103 H Laboratory Results Abnormal Lab Results 12/26/20 12/26/20 12/26/20 17:20 17:20 17:20 WBC 4.42 L RBC 4.49 L Hgb 14.9 Hct 43.5 MCV 96.9 MCH 33.2 MCHC 34.3 RDW Std Deviation 50.9 H RDW Coeff of Brannon 14.3 Plt Count 197 MPV 10.7 H Immature Gran % (Auto) 0.2 Neut % (Auto) 74.2 Lymph % (Auto) 16.3 [place] % (Auto) 8.6 Eos % (Auto) 0.5 Baso % (Auto) 0.2 Neut # (Auto) 3.28 Lymph # (Auto) 0.72 L [place] # (Auto) 0.38 Eos # (Auto) 0.02 Baso # (Auto) 0.01 Immature Gran # (Auto) 0.01 Absolute Nucleated RBC Nucleated RBC % (auto) Neutrophils % (Manual) Band Neutrophils % Lymphocytes % (Manual) Prolymphocyte % Reactive Lymphs % (Man) Monocytes % (Manual) Eosinophils % (Manual) Basophils % (Manual) Metamyelocytes % (Man) Myelocytes % (Man) Promyelocytes % (Man) Blast Cells % (Manual) Plasma Cell % (Manual) Other Cells % Nucleated RBC % Neutrophils # (Manual) Band Neutrophils # Total Absolute Neuts Lymphocytes # (Manual) Prolymphocyte # Reactive Lymphs # Total Abs Lymphocytes Monocytes # (Manual) Eosinophils # (Manual) Basophils # (Manual) Metamyelocytes # (Man) Myelocytes # (Manual) Promyelocytes # (Man) Blast Cells # (Man) Plasma Cell # (Manual) Other Cells # Nucleated RBCs # (Man) Hypersegmented Neuts Hyposegmented Neuts Hypogranular Neuts Large Granular Lymphs # Lrg Granular Lymphs Hairy Cells Smudge Cells Toxic Granulation Toxic Vacuolation Dohle Bodies Linda Rods Platelet Estimate Hypogranular Platelets Clumped Platelets Giant Platelets Platelet Satelliting RBC Morphology Polychromasia Hypochromasia Poikilocytosis Basophilic Stippling Anisocytosis Microcytosis Macrocytosis Spherocytes Pappenheimer Bodies Sickle Cells Target Cells Tear Drop Cells Ovalocytes Stomatocytes [place] Bodies Echinocytes Acanthocytes (Spur) Rouleaux RBC Agglutinates Schistocytes RBC Morph Comment Sezary Cell PT INR APTT PTT Ratio D-Dimer VBG pH VBG pCO2 VBG pO2 VBG HCO3 VBG O2 Saturation VBG Base Excess Barometric Pressure Sodium 133 L Potassium 4.1 Chloride 98 Carbon Dioxide 26 Anion Gap 8.0 BUN 15 Creatinine 1.07 Est Cr Clr Drug Dosing 97.1 Est GFR ( Amer) 90.7 Est GFR (Non-Af Amer) 78.3 BUN/Creatinine Ratio 14.2 Glucose 102 H Lactate Calcium 9.2 Magnesium 2.0 Total Bilirubin 0.8 AST 79 H ALT 185 H Alkaline Phosphatase 83 Troponin I 0.123 H* Total Protein 8.1 Albumin 3.7 Globulin 4.4 H Albumin/Globulin Ratio 0.8 L Procalcitonin 0.28 Specimen Hemolysis Urine Color Urine Appearance Urine pH Ur Specific [place] Urine Protein Urine Glucose (UA) Urine Ketones Urine Blood Urine Nitrite Urine Bilirubin Urine Urobilinogen Ur Leukocyte Esterase Urine WBC (Auto) Urine RBC (Auto) U Hyaline Cast (Auto) U Epithel Cells (Auto) Urine Bacteria (Auto) COVID-19 Eval Order SARS-CoV-2, RNA, NAAT 12/26/20 12/26/20 12/26/20 17:20 17:31 17:31 WBC RBC Hgb Hct MCV MCH MCHC RDW Std Deviation RDW Coeff of Brannon Plt Count MPV Immature Gran % (Auto) Neut % (Auto) Lymph % (Auto) [place] % (Auto) Eos % (Auto) Baso % (Auto) Neut # (Auto) Lymph # (Auto) [place] # (Auto) Eos # (Auto) Baso # (Auto) Immature Gran # (Auto) Absolute Nucleated RBC Nucleated RBC % (auto) Neutrophils % (Manual) Band Neutrophils % Lymphocytes % (Manual) Prolymphocyte % Reactive Lymphs % (Man) Monocytes % (Manual) Eosinophils % (Manual) Basophils % (Manual) Metamyelocytes % (Man) Myelocytes % (Man) Promyelocytes % (Man) Blast Cells % (Manual) Plasma Cell % (Manual) Other Cells % Nucleated RBC % Neutrophils # (Manual) Band Neutrophils # Total Absolute Neuts Lymphocytes # (Manual) Prolymphocyte # Reactive Lymphs # Total Abs Lymphocytes Monocytes # (Manual) Eosinophils # (Manual) Basophils # (Manual) Metamyelocytes # (Man) Myelocytes # (Manual) Promyelocytes # (Man) Blast Cells # (Man) Plasma Cell # (Manual) Other Cells # Nucleated RBCs # (Man) Hypersegmented Neuts Hyposegmented Neuts Hypogranular Neuts Large Granular Lymphs # Lrg Granular Lymphs Hairy Cells Smudge Cells Toxic Granulation Toxic Vacuolation Dohle Bodies Linda Rods Platelet Estimate Hypogranular Platelets Clumped Platelets Giant Platelets Platelet Satelliting RBC Morphology Polychromasia Hypochromasia Poikilocytosis Basophilic Stippling Anisocytosis Microcytosis Macrocytosis Spherocytes Pappenheimer Bodies Sickle Cells Target Cells Tear Drop Cells Ovalocytes Stomatocytes [place] Bodies Echinocytes Acanthocytes (Spur) Rouleaux RBC Agglutinates Schistocytes RBC Morph Comment Sezary Cell PT 11.8 INR 1.1 APTT 28.9 PTT Ratio 1.0 D-Dimer 540 H* VBG pH VBG pCO2 VBG pO2 VBG HCO3 VBG O2 Saturation VBG Base Excess Barometric Pressure Sodium Potassium Chloride Carbon Dioxide Anion Gap BUN Creatinine Est Cr Clr Drug Dosing Est GFR ( Amer) Est GFR (Non-Af Amer) BUN/Creatinine Ratio Glucose Lactate Calcium Magnesium Total Bilirubin AST ALT Alkaline Phosphatase Troponin I Total Protein Albumin Globulin Albumin/Globulin Ratio Procalcitonin Specimen Hemolysis Urine Color Urine Appearance Urine pH Ur Specific [place] Urine Protein Urine Glucose (UA) Urine Ketones Urine Blood Urine Nitrite Urine Bilirubin Urine Urobilinogen Ur Leukocyte Esterase Urine WBC (Auto) Urine RBC (Auto) U Hyaline Cast (Auto) U Epithel Cells (Auto) Urine Bacteria (Auto) COVID-19 Eval Order Covid19 IDNow [facility] SARS-CoV-2, RNA, NAAT POSITIVE A* 12/26/20 12/26/20 12/26/20 17:58 17:58 22:33 WBC RBC Hgb Hct MCV MCH MCHC RDW Std Deviation RDW Coeff of Brannon Plt Count MPV Immature Gran % (Auto) Neut % (Auto) Lymph % (Auto) [place] % (Auto) Eos % (Auto) Baso % (Auto) Neut # (Auto) Lymph # (Auto) [place] # (Auto) Eos # (Auto) Baso # (Auto) Immature Gran # (Auto) Absolute Nucleated RBC Nucleated RBC % (auto) Neutrophils % (Manual) Band Neutrophils % Lymphocytes % (Manual) Prolymphocyte % Reactive Lymphs % (Man) Monocytes % (Manual) Eosinophils % (Manual) Basophils % (Manual) Metamyelocytes % (Man) Myelocytes % (Man) Promyelocytes % (Man) Blast Cells % (Manual) Plasma Cell % (Manual) Other Cells % Nucleated RBC % Neutrophils # (Manual) Band Neutrophils # Total Absolute Neuts Lymphocytes # (Manual) Prolymphocyte # Reactive Lymphs # Total Abs Lymphocytes Monocytes # (Manual) Eosinophils # (Manual) Basophils # (Manual) Metamyelocytes # (Man) Myelocytes # (Manual) Promyelocytes # (Man) Blast Cells # (Man) Plasma Cell # (Manual) Other Cells # Nucleated RBCs # (Man) Hypersegmented Neuts Hyposegmented Neuts Hypogranular Neuts Large Granular Lymphs # Lrg Granular Lymphs Hairy Cells Smudge Cells Toxic Granulation Toxic Vacuolation Dohle Bodies Linda Rods Platelet Estimate Hypogranular Platelets Clumped Platelets Giant Platelets Platelet Satelliting RBC Morphology Polychromasia Hypochromasia Poikilocytosis Basophilic Stippling Anisocytosis Microcytosis Macrocytosis Spherocytes Pappenheimer Bodies Sickle Cells Target Cells Tear Drop Cells Ovalocytes Stomatocytes [place] Bodies Echinocytes Acanthocytes (Spur) Rouleaux RBC Agglutinates Schistocytes RBC Morph Comment Sezary Cell PT INR APTT PTT Ratio D-Dimer VBG pH 7.41 VBG pCO2 42 VBG pO2 30 VBG HCO3 26 VBG O2 Saturation < 60.0 VBG Base Excess 1.0 Barometric Pressure 731.5 Sodium Potassium Chloride Carbon Dioxide Anion Gap BUN Creatinine Est Cr Clr Drug Dosing Est GFR ( Amer) Est GFR (Non-Af Amer) BUN/Creatinine Ratio Glucose Lactate 1.2 Calcium Magnesium Total Bilirubin AST ALT Alkaline Phosphatase Troponin I 0.093 H* Total Protein Albumin Globulin Albumin/Globulin Ratio Procalcitonin Specimen Hemolysis Urine Color Urine Appearance Urine pH Ur Specific [place] Urine Protein Urine Glucose (UA) Urine Ketones Urine Blood Urine Nitrite Urine Bilirubin Urine Urobilinogen Ur Leukocyte Esterase Urine WBC (Auto) Urine RBC (Auto) U Hyaline Cast (Auto) U Epithel Cells (Auto) Urine Bacteria (Auto) COVID-19 Eval Order SARS-CoV-2, RNA, NAAT 12/27/20 12/27/20 12/27/20 06:51 06:51 06:51 WBC Cancelled RBC Cancelled Hgb Cancelled Hct Cancelled MCV Cancelled MCH Cancelled MCHC Cancelled RDW Std Deviation Cancelled RDW Coeff of Brannon Cancelled Plt Count Cancelled MPV Cancelled Immature Gran % (Auto) Cancelled Neut % (Auto) Cancelled Lymph % (Auto) Cancelled [place] % (Auto) Cancelled Eos % (Auto) Cancelled Baso % (Auto) Cancelled Neut # (Auto) Cancelled Lymph # (Auto) Cancelled [place] # (Auto) Cancelled Eos # (Auto) Cancelled Baso # (Auto) Cancelled Immature Gran # (Auto) Cancelled Absolute Nucleated RBC Cancelled Nucleated RBC % (auto) Cancelled Neutrophils % (Manual) Cancelled Band Neutrophils % Cancelled Lymphocytes % (Manual) Cancelled Prolymphocyte % Cancelled Reactive Lymphs % (Man) Cancelled Monocytes % (Manual) Cancelled Eosinophils % (Manual) Cancelled Basophils % (Manual) Cancelled Metamyelocytes % (Man) Cancelled Myelocytes % (Man) Cancelled Promyelocytes % (Man) Cancelled Blast Cells % (Manual) Cancelled Plasma Cell % (Manual) Cancelled Other Cells % Cancelled Nucleated RBC % Cancelled Neutrophils # (Manual) Cancelled Band Neutrophils # Cancelled Total Absolute Neuts Cancelled Lymphocytes # (Manual) Cancelled Prolymphocyte # Cancelled Reactive Lymphs # Cancelled Total Abs Lymphocytes Cancelled Monocytes # (Manual) Cancelled Eosinophils # (Manual) Cancelled Basophils # (Manual) Cancelled Metamyelocytes # (Man) Cancelled Myelocytes # (Manual) Cancelled Promyelocytes # (Man) Cancelled Blast Cells # (Man) Cancelled Plasma Cell # (Manual) Cancelled Other Cells # Cancelled Nucleated RBCs # (Man) Cancelled Hypersegmented Neuts Cancelled Hyposegmented Neuts Cancelled Hypogranular Neuts Cancelled Large Granular Lymphs Cancelled # Lrg Granular Lymphs Cancelled Hairy Cells Cancelled Smudge Cells Cancelled Toxic Granulation Cancelled Toxic Vacuolation Cancelled Dohle Bodies Cancelled Linda Rods Cancelled Platelet Estimate Cancelled Hypogranular Platelets Cancelled Clumped Platelets Cancelled Giant Platelets Cancelled Platelet Satelliting Cancelled RBC Morphology Cancelled Polychromasia Cancelled Hypochromasia Cancelled Poikilocytosis Cancelled Basophilic Stippling Cancelled Anisocytosis Cancelled Microcytosis Cancelled Macrocytosis Cancelled Spherocytes Cancelled Pappenheimer Bodies Cancelled Sickle Cells Cancelled Target Cells Cancelled Tear Drop Cells Cancelled Ovalocytes Cancelled Stomatocytes Cancelled [place] Bodies Cancelled Echinocytes Cancelled Acanthocytes (Spur) Cancelled Rouleaux Cancelled RBC Agglutinates Cancelled Schistocytes Cancelled RBC Morph Comment Cancelled Sezary Cell Cancelled PT INR APTT PTT Ratio D-Dimer VBG pH VBG pCO2 VBG pO2 VBG HCO3 VBG O2 Saturation VBG Base Excess Barometric Pressure Sodium 133 L Potassium 5.1 D Chloride 104 Carbon Dioxide 23 Anion Gap 6.0 BUN 16 Creatinine 0.87 Est Cr Clr Drug Dosing 119.8 Est GFR ( Amer) 113.4 Est GFR (Non-Af Amer) 97.8 BUN/Creatinine Ratio 18.8 Glucose 141 H Lactate Calcium 8.7 Magnesium 2.6 H Total Bilirubin 0.6 AST 77 H ALT 171 H Alkaline Phosphatase 83 Troponin I 0.049 H* Cancelled Total Protein 8.0 Albumin 3.6 Globulin 4.4 H Albumin/Globulin Ratio 0.8 L Procalcitonin Specimen Hemolysis Urine Color Urine Appearance Urine pH Ur Specific [place] Urine Protein Urine Glucose (UA) Urine Ketones Urine Blood Urine Nitrite Urine Bilirubin Urine Urobilinogen Ur Leukocyte Esterase Urine WBC (Auto) Urine RBC (Auto) U Hyaline Cast (Auto) U Epithel Cells (Auto) Urine Bacteria (Auto) COVID-19 Eval Order SARS-CoV-2, RNA, NAAT 12/27/20 12/27/20 07:30 07:38 WBC 2.54 L RBC 4.54 L Hgb 15.2 Hct 43.5 MCV 95.8 MCH 33.5 MCHC 34.9 RDW Std Deviation 49.6 H RDW Coeff of Brannon 14.0 Plt Count 192 MPV 10.4 Immature Gran % (Auto) 0.0 Neut % (Auto) 79.1 Lymph % (Auto) 15.0 [place] % (Auto) 5.9 Eos % (Auto) 0.0 Baso % (Auto) 0.0 Neut # (Auto) 2.01 Lymph # (Auto) 0.38 L [place] # (Auto) 0.15 Eos # (Auto) 0.00 Baso # (Auto) 0.00 Immature Gran # (Auto) 0.00 Absolute Nucleated RBC Nucleated RBC % (auto) Neutrophils % (Manual) Band Neutrophils % Lymphocytes % (Manual) Prolymphocyte % Reactive Lymphs % (Man) Monocytes % (Manual) Eosinophils % (Manual) Basophils % (Manual) Metamyelocytes % (Man) Myelocytes % (Man) Promyelocytes % (Man) Blast Cells % (Manual) Plasma Cell % (Manual) Other Cells % Nucleated RBC % Neutrophils # (Manual) Band Neutrophils # Total Absolute Neuts Lymphocytes # (Manual) Prolymphocyte # Reactive Lymphs # Total Abs Lymphocytes Monocytes # (Manual) Eosinophils # (Manual) Basophils # (Manual) Metamyelocytes # (Man) Myelocytes # (Manual) Promyelocytes # (Man) Blast Cells # (Man) Plasma Cell # (Manual) Other Cells # Nucleated RBCs # (Man) Hypersegmented Neuts Hyposegmented Neuts Hypogranular Neuts Large Granular Lymphs # Lrg Granular Lymphs Hairy Cells Smudge Cells Toxic Granulation Toxic Vacuolation Dohle Bodies Linda Rods Platelet Estimate Hypogranular Platelets Clumped Platelets [place] Platelets Platelet Satelliting RBC Morphology Polychromasia Hypochromasia Poikilocytosis Basophilic Stippling Anisocytosis Microcytosis Macrocytosis Spherocytes Pappenheimer Bodies Sickle Cells Target Cells Tear Drop Cells Ovalocytes Stomatocytes [place] Bodies Echinocytes Acanthocytes (Spur) Rouleaux RBC Agglutinates Schistocytes RBC Morph Comment Sezary Cell PT INR APTT PTT Ratio D-Dimer VBG pH VBG pCO2 VBG pO2 VBG HCO3 VBG O2 Saturation VBG Base Excess Barometric Pressure Sodium Potassium Chloride Carbon Dioxide Anion Gap BUN Creatinine Est Cr Clr Drug Dosing Est GFR ( Amer) Est GFR (Non-Af Amer) BUN/Creatinine Ratio Glucose Lactate Calcium Magnesium Total Bilirubin AST ALT Alkaline Phosphatase Troponin I Total Protein Albumin Globulin Albumin/Globulin Ratio Procalcitonin Specimen Hemolysis Urine Color Yellow Urine Appearance Clear Urine pH 5.0 Ur Specific [place] 1.029 Urine Protein 1+ H Urine Glucose (UA) Negative Urine Ketones Trace H Urine Blood Negative Urine Nitrite Negative Urine Bilirubin Negative Urine Urobilinogen Negative Ur Leukocyte Esterase Negative Urine WBC (Auto) 1-5 Urine RBC (Auto) 0-4 U Hyaline Cast (Auto) 1-5 U Epithel Cells (Auto) 5-10 H Urine Bacteria (Auto) Negative COVID-19 Eval Order SARS-CoV-2, RNA, NAAT Diagnostic Findings And chest CT a both revealed evidence of pulmonary infectious process with multifocal ground-glass opacities and mediastinal lymphadenopathy. Also noted to have coronary artery calcification. Ascending aorta measured nearly 4 cm. PG Care Time/CCT Total # of Minutes Spent Total Time Spent with Patient: Total time spent is greater than 50% in coordination of care (as documented) at patient's floor/unit and/or counseling patient: Coding Level of Care Code 85766 Office/OBS Consult Lvl 4 Diagnoses Elevated troponin R77.8 Coronary artery calcification I25.10; I25.84 Ectatic aorta I77.819
--- NOTE | 2020-12-27 16:48 | Discharge Summary ---
Date of Service December 27, 2020 Admission HPI Per Admitting Provider The patient is a 55-year-old male with no significant PMH, who presents to the emergency department with what he felt was a sinus infection. 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 In the emergency department, he underwent testing including laboratories which showed the following: Sodium 133, D-dimer 540, AST 79, ALT 185, troponin 0 0.123 and COVID-19 positivity. Chest x-ray suggested multifocal pneumonia. The patient's lowest pulse ox was 92% on room air. 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 Discharge Exam Constitutional WD/WN, vitals as above Eyes EOM intact bilaterally; no conjunctival abnormality ENMT external ear and nose normal, oropharynx normal Neck trachea midline, no thyromegaly normal visual inspection Respiratory normal respiratory effort, lungs clear to auscultation no respiratory distress Cardiovascular RRR, no murmur, no edema Gastrointestinal (Abdomen) Inspection/Auscultation: abdomen normal to inspection; abdomen not distended Musculoskeletal no cyanosis or clubbing, extremities motor strength 5/5 Skin no rashes, warm and dry Neurologic moves all extremities and awake Psychiatric Orientation: alert, oriented to person and cooperative Discharge Data Allergies Allergy/AdvReac Type Severity Reaction Status Date / Time No Known Allergies Allergy Verified 12/26/20 19:36 Consultations 12/26/20 19:56 ED Decision to Admit Stat 12/26/20 22:05 Consult Cardiology Routine Consult Case Management - Discharge Planning Routine Ordered Studies 12/26/20 18:05 CT angio chest PE protocol Stat Hospital Course (1) Elevated troponin: Troponins were 0.1, then downtrended to 0.05 by discharge. - Seen by cardiology who felt this was likely Covid-19 myocarditis. No further inpatient needs. Will follow up in 2 weeks for repeat EKG and echocardiogram. - Start ASA 81 mg PO daily until seen by cardiology. (2) Pneumonia due to 2019-nCoV: Multifocal pneumonia noted on CT scan, however, patient has no issues with breathing other than difficulty breathing through his nose when his nasal congestion. - Symptoms have been ongoing for at least 5 days to 7 days, and does not qualify for remdesivir or convalescent plasma. - No need for dexamethasone on discharge as he was on room air with comfortable O2 sat. (3) Multifocal pneumonia: See above (4) Abnormal LFTs: Abnormal liver function test/hepatic steatosis. May be an element secondary to COVID-19 infection as well. - Stable while inpatient. - Follow up with PCP in 2-3 weeks for retesting. (5) Hepatic steatosis: See above Total Time Total Time Spent Total Time Spent (In Minutes): 35 Discharge Plan Discharge Items Patient Disposition: Home - Self-Care Reason For Visit: COVID-19 PNEUMONIA, ELEVATED TROPONIN Discharge Diagnosis: Covid-19, high troponin Activity: Resume your previous activity Non-emergency contact: Primary Care Provider and Back End Developer Call non-emergency contact if: your symptoms worsen Follow-up/Referrals: Zion Mena III, MD [Primary Care Provider] - 01/02/21 11:30 am Kishan Farley MD [Physician] - 01/11/21 10:15 am (Please see Dr. Farley in 2 weeks for an EKG and ultrasound of your heart. ) Diet: Heart Healthy Addtl Attending Provider Instructions: You were admitted with EKG changes that they were concerning for a heart attack. However, your tests are stable, and do not indicate a heart attack. It does look like Covid is stressing your heart slightly, but as you clear the infection, I am hopeful this will return to normal. Please stay out of work until January 05 and isolate at home. If your girlfriend tests positive, you can remain with her as you cannot pass Covid back and forth, and it is very unlikely you can get it a second time in the next 3-5 months. Please do get the vaccine when it becomes available because that can provide longer immunity we believe. Please stop your naproxen and take a baby aspirin (81 mg) for your heart. For pain, Tylenol (acetaminophen) is the safest medication. Please return to the hospital if you have any chest pain, shortness of breath, dizziness, lightheadedness, or other concerning symptoms. Please see Dr. Farley in 2 weeks to have some tests done to make sure your heart has recovered well. Pending Studies at Discharge: No Stand-Alone Forms: My [employer], Smoking Cessation Medications and DC Order Prescriptions: New aspirin 81 mg tablet,delayed release (DR/EC) 81 mg PO DAILY Qty: 30 RF: 0 acetaminophen [Tylenol] 325 mg tablet 325 mg PO Q6H PRN (Reason: fever or pain) Qty: 30 RF: 0 Discontinued naproxen sodium [Aleve] 220 mg Tablet 220 mg PO QAM RF: 0 Discharge Orders: Discharge Order (Routine); Ordered 12/27/20 Ordered By: Kobi Haney Admission Data Admit Date/Time: 12/26/20 20:43 Attending Provider: Kobi Haney Admit Provider: Peterson Smith Primary Care Provider: Zion Mena III Other Providers: Matti Herrera ; Kobi Haney Other Interventions: Discharge Summary Assessment (RN) Last Done: 12/27/20 14:08 Coding Level of Care Code D/C Day Management >30 mins Diagnoses Elevated troponin R77.8 Pneumonia due to 2019-nCoV U07.1; J12.82 Multifocal pneumonia J18.9 Abnormal LFTs R94.5 Hepatic steatosis K76.0
--- NOTE | 2020-12-28 10:01 | Electrocardiogram Report ---
Test Reason : Blood Pressure : / mmHG Vent. Rate : 124 BPM Atrial Rate : 124 BPM P-R Int : 154 ms QRS Dur : 112 ms QT Int : 284 ms P-R-T Axes : 062 -59 121 degrees QTc Int : 408 ms Sinus tachycardia Possible Left atrial enlargement Left axis deviation Left ventricular hypertrophy with repolarization abnormality Abnormal ECG No previous ECGs available Confirmed by Ronan Farley ([id number]) on 12/28/2020 10:01:30 AM Referred By: REFERRED SELF Confirmed By:Alexis Farley
== END 2020-12-27 14:33 | disposition home or self-care (01) | DRG 177 ==
LOC: ED 15:49 → 2E 20:43 → SUATTDRO 20:43 → 2E 21:08

== ENCOUNTER 2021-01-02 22:35 | Observation (INO) ==
[2021-01-02] MEDS ORDERED: OPTIRAY 320 125ml IV ONE (22:50)
[2021-01-02] MEDS ORDERED: SODIUM CHLORIDE 0.9% 1000ML 1,000 ML IV ONE (22:55)
[2021-01-02 23:03] LABS: Basophils # (auto) 0.01 K/uL (0-0.2); Basophils % (auto) 0.1 %; Eosinophils % (auto) 1.8 %; Hematocrit (blood only) 42.4 % (42-52); Immature Granulocytes # (auto) 0.05 K/uL (0.00-0.02); Immature Granulocytes % (auto) 0.5 %; Lymphocytes # (auto) 1.22 K/uL (1.2-3.4); Lymphocytes % (auto) 11.2 %; Mean Corpuscular Hemoglobin 33.2 pg (25-34); Mean Corpuscular Hgb Conc 35.4 g/dL (32-36); Mean Corpuscular Volume 93.8 fL (80-100); Mean Platelet Volume 9.8 fL (7.4-10.4); Monocytes # (auto) 1.28 K/uL (0.11-0.59); Monocytes % (auto) 11.8 %; Neutrophils # (auto) 8.11 K/uL (1.4-6.5); Neutrophils % (auto) 74.6 %; Platelet Count 369 K/uL (130-400); RDW Coefficient of Variation 13.5 % (11.5-14.5); RDW Standard Deviation 46.5 fL (36.4-46.3); Red Blood Count 4.52 M/uL (4.7-6.1); White Blood Count 10.87 K/uL (4.8-10.8)
--- NOTE | 2021-01-02 23:09 | Emergency Department Note ---
Impression & Plan Aphasia, Facial droop, Tachycardia, COVID-19 ED Provider Note Provider: Pacheco De Souza MD DATE OF SERVICE: 01/02/2021 CHIEF COMPLAINT: Stroke symptoms HISTORY OF PRESENT ILLNESS: Patient is a 55-year-old gentleman history of recent admission last week for coronavirus 19 as well as a mild troponin elevation sinus Covid myocarditis presenting here today with with her new reported strokelike symptoms. Evidently the patient's been a bit weak and not eating or drinking that well. states between noon and 1 PM this afternoon the patient started to have slurred speech developed a worsening left-sided facial droop and then stopped speaking. No falls or trauma reported but the patient does not acknowledge some dizziness. He denies any pain. He is nonverbal at this time but again does nod and respond to questions this way. Denies any weakness or numbness. Patient denies any history of this. Patient nods that he is on 81 mg aspirin. No fevers reported today. REVIEW OF SYSTEMS: A total of 10 review of systems was obtained and negative except as stated above in the HPI. PAST MEDICAL HISTORY: As noted above MEDICATIONS: Reviewed home medications SOCIAL HISTORY: Non-smoker, PHYSICAL EXAM: GENERAL: alert and oriented in no acute distress on stretcher Head: normocephalic and atraumatic EYES: No injection, discharge or icterus. PERRL NECK: Trachea midline. Supple. ENT: Mucous membranes pink and moist. LUNGS: Airway patent. No retractions. Breath sounds clear with good air entry bilaterally. HEART: Regular rate and rhythm. No chest wall tenderness ABDOMEN: Soft and non-tender, without guarding or rebound. SKIN: Acyanotic, warm, dry, without rashes EXTREMITIES: Without swelling, tenderness or deformity NEUROLOGICAL: No gaze deviation. Left-sided facial droop noted. Patient is nonverbal but will nod and shake his head to answer some questions. No pronator drift. No leg drop. Intact strength in the extremities. Ambulatory EK bpm sinus tachycardia the PVC or PAC. Left axis is noted without acute ST segment elevation. Do inversions in lead I and aVL appear similar to previous on December 27 without lateral T wave inversions now. CONTINUOUS CARDIAC MONITORING: was ordered and showed a heart rate of 120s bpm in sinus tachycardia 1 view chest x-ray: No evidence of free air under the diaphragm or acute bony abnormality. Cardiomegaly is noted with bilateral airspace opacities with poor inspiratory effort. Patient's laboratory studies and imaging reviewed. Differential includes Infection, dehydration, metabolic abnormality, hypo/hyperglycemia, electrolyte disturbance, anemia, hypoxia, cardiac sources, intracerebral event, toxicologic, neurologic, as well as other pathologies. IMPRESSION/MEDICAL DECISION MAKING: Patient with onset of new left facial droop and aphasia concerning for possible CVA. Stroke alert initiated upon evaluation in room A1. Patient unfortunately outside the timeframe for TPA. Noted recent admission for Covid. Tachycardic here but not significantly hypoxic. Chest x-ray and basic labs ordered. Patient immediately sent however CT and CT angiograms of the head and neck. No acute bleed is noted or acute vascular occlusion or aneurysm per the preliminary CT reports. Discussed with telestroke at [facility] given the neuro deficits. Patient ordered IV fluid bolus. White blood cell count of 10.8 noted today significantly higher than recent leukopenia from last week. No significant anemia. Troponin is detectable not abnormal and decreased compared to previous from last week. No severe electrolyte abnormality noted. No evidence of liver dysfunction at this time or signs of renal dysfunction. Do have some concerns given his recent Covid infection and neurological symptoms if he may have suffered a small vessel ischemic stroke. Proceed with IV hydration for what appears to be a sinus tachycardia question if this is hydration all. Discussion with [facility] neurology magnesium was ordered and plan for admission discussed. They did recommend given his Covid status and if MRI does not show a stroke considering a dose of dexamethasone to see if this would help with symptoms over the next several days. No fevers reported and denies significant respiratory symptoms or hypoxia at this point. Patient does not appear meningitic. Lower suspicion for acute bacterial pneumonia. We will discussed with the hospitalist for further inpatient care and reevaluation was able to speak a few words. DIAGNOSIS: Aphasia, left facial droop, tachycardia DISPOSITION: Hospitalist will evaluate Patient was agreeable with this plan. Preliminary Findings Only See Final Report For Complete Findings CT HEAD: No ICH, mass effect or edema. No evidence of acute cortical stroke. Visualized sinuses and mastoid air cells are clear. Radiologist: Anna Resendiz M.D. Study ready at 22:55 and initial results transmitted at 22:59 Preliminary Findings Only See Final Report For Complete Findings CTA HEAD: Intracranial vessels are patent. No large vessel occlusion or hemodynamically significant stenosis. [place] within normal limits. Dural venous sin uses appear patent. Radiologist: Anna Resendiz M.D. Study ready at 23:00 and initial results transmitted at 23:06 Preliminary Findings Only See Final Report For Complete Findings CTA NECK: The carotid and vertebral arteries of the neck are patent without occlusion or dissection. Mild atherosclerotic plaque of the left distal common carotid artery and carotid bulb without hemodynamically significant stenosis. The left common carotid artery takes a retropharyngeal course. Punctate calcifications and minimal plaque visualized within the right common carotid artery and proximal internal carotid artery of the neck. Atherosclerotic plaque and calcification of the origin of the right ECA. Atherosclerotic calcification of the right vertebral artery appears to result in a moderate focal stenosis. Radiologist: Anna Resendiz M.D. Past Med/Surg History Medical History Morbid obesity No pertinent family history No pertinent past medical history Surgical History No pertinent past surgical history Family History Denies family history of Heart disease Social History Smoking Status: Never smoker Second Hand Exposure: No; Hx Alcohol Use: Yes Alcohol type: beer Hx Substance Use: No Preferred Language: [place] Communication Ability: Effective Beliefs That Will Affect Care: None Current Living Situation: Significant Other Feels Safe at Home: Yes Assistive Devices: None Allergies Allergies Allergy/AdvReac Type Severity Reaction Status Date / Time No Known Allergies Allergy Verified 01/02/21 23:11 Home Meds Previous Rx's Medication Instructions Recorded acetaminophen [Tylenol] 325 mg PO Q6H PRN #30 tab 12/27/20 aspirin 81 mg PO DAILY #30 tab 12/27/20 Results & Data (ED) Vital Signs Vital Signs - 24 hr 01/02/21 22:40 01/02/21 22:43 01/02/21 22:56 Temperature Temperature Source Pulse Rate 130 H 130 H 130 H Pulse Rate from SpO2 Sensor 130 H Respiratory Rate 20 13 21 Blood Pressure 170/96 H 141/79 H Blood Pressure Mean 120 99 Pulse Oximetry 93 Oxygen Delivery Method Sepsis Recent Fever Within 48 Hours Sepsis New/Unexplained Change in Mental Status Sepsis Action Taken by Nursing Pulse Oximetry Post Tiitration 01/02/21 22:59 01/02/21 23:00 01/02/21 23:10 Temperature 36.8 C Temperature Source Oral Pulse Rate 128 H 133 H 123 H Pulse Rate from SpO2 Sensor 134 H 122 H Respiratory Rate 20 18 20 Blood Pressure 141/79 H Blood Pressure Mean 99 Pulse Oximetry 93 97 93 Oxygen Delivery Method Room Air Sepsis Recent Fever Within 48 Hours No Sepsis New/Unexplained Change in Mental Status No Sepsis Action Taken by Nursing No Action Required Pulse Oximetry Post Tiitration 93 01/02/21 23:20 01/02/21 23:30 01/02/21 23:31 Temperature Temperature Source Pulse Rate 124 H 130 H 122 H Pulse Rate from SpO2 Sensor 131 H 123 H Respiratory Rate 18 14 12 Blood Pressure 143/107 H Blood Pressure Mean 119 Pulse Oximetry 100 94 Oxygen Delivery Method Sepsis Recent Fever Within 48 Hours Sepsis New/Unexplained Change in Mental Status Sepsis Action Taken by Nursing Pulse Oximetry Post Tiitration 01/02/21 23:40 01/02/21 23:50 01/02/21 23:52 Temperature Temperature Source Pulse Rate 124 H 121 H 121 H Pulse Rate from SpO2 Sensor 125 H 122 H 121 H Respiratory Rate 14 13 16 Blood Pressure 155/95 H Blood Pressure Mean 115 Pulse Oximetry 93 98 97 Oxygen Delivery Method Sepsis Recent Fever Within 48 Hours Sepsis New/Unexplained Change in Mental Status Sepsis Action Taken by Nursing Pulse Oximetry Post Tiitration 01/03/21 00:00 01/03/21 00:01 Temperature Temperature Source Pulse Rate 120 H 123 H Pulse Rate from SpO2 Sensor 121 H 123 H Respiratory Rate 27 H 19 Blood Pressure 134/92 Blood Pressure Mean 106 Pulse Oximetry 95 97 Oxygen Delivery Method Sepsis Recent Fever Within 48 Hours Sepsis New/Unexplained Change in Mental Status Sepsis Action Taken by Nursing Pulse Oximetry Post Tiitration Laboratory Data Result diagrams: 01/02/21 22:51 01/02/21 22:51 Lab Results 01/02/21 01/02/21 01/02/21 Range/Units 22:51 22:51 22:51 WBC 10.87 H (4.8-10.8) K/uL RBC 4.52 L (4.7-6.1) M/uL Hgb 15.0 (14.0-18.0) g/dL Hct 42.4 (42-52) % MCV 93.8 (80-100) fL MCH 33.2 (25-34) pg MCHC 35.4 (32-36) g/dL RDW Std Deviation 46.5 H (36.4-46.3) fL RDW Coeff of Brannon 13.5 (11.5-14.5) % Plt Count 369 (130-400) K/uL MPV 9.8 (7.4-10.4) fL Immature Gran % (Auto) 0.5 % Neut % (Auto) 74.6 % Lymph % (Auto) 11.2 % Glenn % (Auto) 11.8 % Eos % (Auto) 1.8 % Baso % (Auto) 0.1 % Neut # (Auto) 8.11 H (1.4-6.5) K/uL Lymph # (Auto) 1.22 (1.2-3.4) K/uL Glenn # (Auto) 1.28 H (0.11-0.59) K/uL Eos # (Auto) 0.20 (0-0.5) K/uL Baso # (Auto) 0.01 (0-0.2) K/uL Immature Gran # (Auto) 0.05 H (0.00-0.02) K/uL PT 11.9 (9.0-12.0) Seconds INR 1.1 (0.9-1.1) APTT 26.3 (21.0-31.0) Seconds PTT Ratio 0.9 Sodium (136-145) mmol/L Potassium (3.5-5.1) mmol/L Chloride (98-107) mmol/L Carbon Dioxide (21-32) mmol/L Anion Gap (3-11) BUN (7-18) mg/dl Creatinine (0.6-1.4) mg/dl Est Cr Clr Drug Dosing ml/min Est GFR ( Amer) Est GFR (Non-Af Amer) BUN/Creatinine Ratio (10-20) Glucose (70-99) mg/dl Calcium (8.5-10.1) mg/dl Magnesium (1.8-2.4) mg/dl Total Bilirubin (0.2-1) mg/dl AST (15-37) U/L ALT (12-78) U/L Alkaline Phosphatase (45-117) U/L Troponin I (0-0.045) ng/ml Total Protein (6.4-8.2) gm/dl Albumin (3.4-5.0) gm/dl Globulin (2.5-4.0) gm/dl Albumin/Globulin Ratio (0.9-2) Blood Type A Positive Antibody Screen NEGATIVE 01/02/21 Range/Units 22:51 WBC (4.8-10.8) K/uL RBC (4.7-6.1) M/uL Hgb (14.0-18.0) g/dL Hct (42-52) % MCV (80-100) fL MCH (25-34) pg MCHC (32-36) g/dL RDW Std Deviation (36.4-46.3) fL RDW Coeff of Brannon (11.5-14.5) % Plt Count (130-400) K/uL MPV (7.4-10.4) fL Immature Gran % (Auto) % Neut % (Auto) % Lymph % (Auto) % Glenn % (Auto) % Eos % (Auto) % Baso % (Auto) % Neut # (Auto) (1.4-6.5) K/uL Lymph # (Auto) (1.2-3.4) K/uL Glenn # (Auto) (0.11-0.59) K/uL Eos # (Auto) (0-0.5) K/uL Baso # (Auto) (0-0.2) K/uL Immature Gran # (Auto) (0.00-0.02) K/uL PT (9.0-12.0) Seconds INR (0.9-1.1) APTT (21.0-31.0) Seconds PTT Ratio Sodium 134 L (136-145) mmol/L Potassium 4.1 (3.5-5.1) mmol/L Chloride 101 (98-107) mmol/L Carbon Dioxide 25 (21-32) mmol/L Anion Gap 8.0 (3-11) BUN 9 (7-18) mg/dl Creatinine 1.12 (0.6-1.4) mg/dl Est Cr Clr Drug Dosing 89.9 ml/min Est GFR ( Amer) 85.9 Est GFR (Non-Af Amer) 74.1 BUN/Creatinine Ratio 8.0 L (10-20) Glucose 131 H (70-99) mg/dl Calcium 9.7 (8.5-10.1) mg/dl Magnesium 2.1 (1.8-2.4) mg/dl Total Bilirubin 0.8 (0.2-1) mg/dl AST 34 (15-37) U/L ALT 73 (12-78) U/L Alkaline Phosphatase 87 (45-117) U/L Troponin I 0.029 (0-0.045) ng/ml Total Protein 8.5 H (6.4-8.2) gm/dl Albumin 3.4 (3.4-5.0) gm/dl Globulin 5.1 H (2.5-4.0) gm/dl Albumin/Globulin Ratio 0.7 L (0.9-2) Blood Type Antibody Screen Administered Medications Magnesium Sulfate/Dextrose (Magnesium Sulfate / D5w) 1 gm in 100 mls @ 200 mls/hr IV Q30M JOHN Stop: 01/03/21 00:44 Last Admin: 01/03/21 00:40 Dose: 200 mls/hr Documented by: [id number] Infusion: 01/03/21 00:39 Dose: 200 mls/hr Documented by: [id number] Admin: 01/03/21 00:09 Dose: 200 mls/hr Documented by: [id number] Discontinued Medications Sodium Chloride (Nss 1000ml) 1,000 mls @ 999 mls/hr IV .Q1H1M ONE Stop: 01/02/21 23:55 Last Infusion: 01/03/21 00:09 Dose: 0 mls/hr Documented by: [id number] Admin: 01/02/21 23:07 Dose: 999 mls/hr Documented by: [id number] Ioversol (Optiray 320 125ml) 125 ml IV ONCE ONE Stop: 01/02/21 22:51 Last Admin: 01/02/21 22:50 Dose: 117 ml Documented by: [id number] Discharge Plan Visit Data Chief Complaint: Stroke/CVA Symptoms Stated Complaint: CANT SPEAK, LEFT SIDE NUMBNESS ED Provider: Pacheco De Souza Discharge Problem: Aphasia, Facial droop, Tachycardia, COVID-19 Patient Disposition: Being Evaluated by Hospitalist Forms Stand Alone Forms: My [facility] [employer] Medical Prescriptions Prescriptions: No Action aspirin 81 mg tablet,delayed release (DR/EC) 81 mg PO DAILY Qty: 30 RF: 0 acetaminophen [Tylenol] 325 mg tablet 325 mg PO Q6H PRN (Reason: fever or pain) Qty: 30 RF: 0 Referrals Referrals: Zion Mena III, MD [Primary Care Provider] -
[2021-01-02 23:13] LABS: INR 1.1 (0.9-1.1); Partial Thromboplastin Ratio 0.9; Partial Thromboplastin Time 26.3 Seconds (21.0-31.0); Prothrombin Time 11.9 Seconds (9.0-12.0)
[2021-01-02 23:34] LABS: Albumin Level 3.4 gm/dl (3.4-5.0); Calcium 9.7 mg/dl (8.5-10.1); Creatinine Clr Calc Pharmacy 89.9 ml/min; Est GFR (African American) 85.9; Est GFR (Non-African American) 74.1; Magnesium 2.1 mg/dl (1.8-2.4); Potassium 4.1 mmol/L (3.5-5.1)
[2021-01-02 23:39] LABS: Albumin Globulin Ratio 0.7 (0.9-2); Bilirubin,Total 0.8 mg/dl (0.2-1); Globulin 5.1 gm/dl (2.5-4.0); Total Protein 8.5 gm/dl (6.4-8.2); Troponin I 0.029 ng/ml (0-0.045)
[2021-01-03] MEDS: MAGNESIUM SULFATE / D5W 1 GM/100 ML BAG IV SCH ×2 (00:09→00:40)
[2021-01-03] MEDS ORDERED: DEXAMETHASONE SOD INJ 4 MG/ML VIAL IV STA (00:53)
[2021-01-03] MEDS ORDERED: DEXAMETHASONE SOD INJ 10 MG/ML VIAL ONE (00:56)
--- NOTE | 2021-01-03 01:54 | History & Physical Report ---
Date of Service January 03, 2021 Assessment & Plan (1) Acute CVA (cerebrovascular accident): CT of head without contrast, CTA head neck without acute findings. MRI of brain shows acute CVA involving posterior right frontal lobe and extending into right temporal lobe Emergency department here discussed case with neuro teleradiology from [facility], with the recommendation being to place the patient on dexamethasone IV. We will consult neurology.we will ask for their opinion regarding DVT prophylaxis at COVID-19 levels versus routine. Present on Admission?: Yes (2) Aphasia: Primary symptom Present on Admission?: Yes (3) Pneumonia due to 2019-nCoV: Give dexamethasone 10 mg IV in the ED tonight, will continue dexamethasone 6 mg IV every morning. Present on Admission?: Yes (4) Myocarditis due to 2019 novel coronavirus: Troponin is normal this admission. Patient will need echocardiogram. Consult cardiology Present on Admission?: Yes (5) Ectatic aorta: Noted during last admission, with plan for follow-up echocardiogram in the outpatient setting Present on Admission?: Yes History of Present Illness Chief Complaint: The patient presents to the emergency department due to his 's concerns regarding progressive weakness, sleeping all the time, slurred speech with 1 word answers, and a left-sided facial droop. Primary Care Provider: Zion Mena MD The patient is a 55-year-old male with a past medical history including hepatic steatosis, abnormal LFTs, ectatic aorta, multifocal pneumonia due to COVID-19 requiring hospitalization from 12/26-12/27/2020, elevated troponin due to COVID-19 myocarditis and morbid obesity. Patient presents with symptoms as noted above. In the emergency department, the patient answers either yes or no, and is aware that he is only answering in one-word answers, although he is trying hard to expand. Work-up in the emergency department included a CT scan of the head which was negative. Chest x-ray showed cardiomegaly. As noted, patient was COVID-19 positive on 12/26/2020. MRI of brain without contrast showed an acute CVA involving the cortical and subcortical white matter of the posterior right frontal lobe and to a lesser extent the right temporal lobe. Allergies Allergy/AdvReac Type Severity Reaction Status Date / Time No Known Allergies Allergy Verified 01/02/21 23:11 Home Medications Medication Instructions Recorded Confirmed Type acetaminophen [Tylenol] 325 mg PO Q6H PRN #30 tab 12/27/20 01/02/21 Rx aspirin 81 mg PO DAILY #30 tab 12/27/20 01/02/21 Rx Past Med/Surg History Medical History Morbid obesity No pertinent family history No pertinent past medical history Surgical History No pertinent past surgical history Family History Denies family history of Heart disease Social History Smoking Status: Never smoker Second Hand Exposure: No; Do You Dip or Chew Tobacco: No; Hx Alcohol Use: Yes Alcohol type: beer Hx Substance Use: No Preferred Language: Armenian Communication Ability: Impaired Communication Ability Comment: expressive aphasia Mold Runner Required: No Beliefs That Will Affect Care: None Current Living Situation: Significant Other Feels Safe at Home: Yes Safety Concerns: Feels Safe At This Time Assistive Devices: None Review of Systems Review of Systems: The patient himself was unable to complete the HPI or review of systems, but his who was in attendance, reported the following denies chest pain, palpitations, shortness of breath, dyspnea on exertion, cough, lower extremity swelling, sore throat, fevers, chills, sweats, nausea, vomiting, diarrhea , constipation, abdominal pain, pelvic pain, blood in urine or stool, dysuria, urinary frequency or urgency, memory loss, loss of consciousness, rash, abnormal bruising or bleeding, focal or generalized weakness, numbness or tingling in arms or legs, generalized arthralgias or myalgias, back or neck pain, or night sweats. The review of systems is otherwise negative other than for that already noted above, and at least 10 systems have been reviewed. Physical Exam Physical Exam: The patient is awake, alert, normocephalic and atraumatic, lying in bed and in no acute distress. HEENT--PERRL, EOMI, mucous membranes and oropharynx dry. Neck--supple. No JVD. No bruits. Thyroid normal, trachea midline, no adenopathy. Heart--normal S1 and S2. No murmurs, rubs or gallops. Lungs--clear bilaterally, no respiratory distress, no accessory muscle use. Abdomen--normal bowel sounds and soft. Nontender. Nondistended. Morbid obesity Extremities--no cyanosis or clubbing. No edema. Dermatologic--normal skin turgor, normal color, no abnormal lymph nodes, no rash. Neurologic--cranial nerves II through XII grossly intact. Rheumatologic--limited exam Psychiatric--normal affect. Results & Data Results & Data ([facility]) Vital Signs (Past 12 Hours) Vital Signs Temp Pulse Resp BP Pulse Ox 01/03/21 00:01 123 H 19 134/92 97 01/03/21 00:00 120 H 27 H 95 01/02/21 23:52 121 H 16 155/95 H 97 01/02/21 23:50 121 H 13 98 01/02/21 23:40 124 H 14 93 01/02/21 23:31 122 H 12 94 01/02/21 23:30 130 H 14 143/107 H 100 01/02/21 23:20 124 H 18 01/02/21 23:10 123 H 20 93 01/02/21 23:00 133 H 18 97 01/02/21 22:59 98.2 F 128 H 20 141/79 H 93 01/02/21 22:56 130 H 21 141/79 H 93 01/02/21 22:43 130 H 13 01/02/21 22:40 130 H 20 170/96 H Laboratory Results Laboratory Results WBC 10.87 K/uL (4.8-10.8) H 01/02/21 22:51 RBC 4.52 M/uL (4.7-6.1) L 01/02/21 22:51 Hgb 15.0 g/dL (14.0-18.0) 01/02/21 22:51 Hct 42.4 % (42-52) 01/02/21 22:51 MCV 93.8 fL (80-100) 01/02/21 22:51 MCH 33.2 pg (25-34) 01/02/21 22:51 MCHC 35.4 g/dL (32-36) 01/02/21 22:51 RDW Std Deviation 46.5 fL (36.4-46.3) H 01/02/21 22:51 RDW Coeff of Brannon 13.5 % (11.5-14.5) 01/02/21 22:51 Plt Count 369 K/uL (130-400) 01/02/21 22:51 MPV 9.8 fL (7.4-10.4) 01/02/21 22:51 Immature Gran % (Auto) 0.5 % 01/02/21 22:51 Neut % (Auto) 74.6 % 01/02/21 22:51 Lymph % (Auto) 11.2 % 01/02/21 22:51 [place] % (Auto) 11.8 % 01/02/21 22:51 Eos % (Auto) 1.8 % 01/02/21 22:51 Baso % (Auto) 0.1 % 01/02/21 22:51 Neut # (Auto) 8.11 K/uL (1.4-6.5) H 01/02/21 22:51 Lymph # (Auto) 1.22 K/uL (1.2-3.4) 01/02/21 22:51 [place] # (Auto) 1.28 K/uL (0.11-0.59) H 01/02/21 22:51 Eos # (Auto) 0.20 K/uL (0-0.5) 01/02/21 22:51 Baso # (Auto) 0.01 K/uL (0-0.2) 01/02/21 22:51 Immature Gran # (Auto) 0.05 K/uL (0.00-0.02) H 01/02/21 22:51 PT 11.9 Seconds (9.0-12.0) 01/02/21 22:51 INR 1.1 (0.9-1.1) 01/02/21 22:51 APTT 26.3 Seconds (21.0-31.0) 01/02/21 22:51 PTT Ratio 0.9 01/02/21 22:51 Sodium 134 mmol/L (136-145) L 01/02/21 22:51 Potassium 4.1 mmol/L (3.5-5.1) 01/02/21 22:51 Chloride 101 mmol/L (98-107) 01/02/21 22:51 Carbon Dioxide 25 mmol/L (21-32) 01/02/21 22:51 Anion Gap 8.0 (3-11) 01/02/21 22:51 BUN 9 mg/dl (7-18) 01/02/21 22:51 Creatinine 1.12 mg/dl (0.6-1.4) 01/02/21 22:51 Est Cr Clr Drug Dosing 89.9 ml/min 01/02/21 22:51 Est GFR ( Amer) 85.9 01/02/21 22:51 Est GFR (Non-Af Amer) 74.1 01/02/21 22:51 BUN/Creatinine Ratio 8.0 (10-20) L 01/02/21 22:51 Glucose 131 mg/dl (70-99) H 01/02/21 22:51 Calcium 9.7 mg/dl (8.5-10.1) 01/02/21 22:51 Magnesium 2.1 mg/dl (1.8-2.4) 01/02/21 22:51 Total Bilirubin 0.8 mg/dl (0.2-1) 01/02/21 22:51 AST 34 U/L (15-37) 01/02/21 22:51 ALT 73 U/L (12-78) 01/02/21 22:51 Alkaline Phosphatase 87 U/L (45-117) 01/02/21 22:51 Troponin I 0.029 ng/ml (0-0.045) 01/02/21 22:51 Total Protein 8.5 gm/dl (6.4-8.2) H 01/02/21 22:51 Albumin 3.4 gm/dl (3.4-5.0) 01/02/21 22:51 Globulin 5.1 gm/dl (2.5-4.0) H 01/02/21 22:51 Albumin/Globulin Ratio 0.7 (0.9-2) L 01/02/21 22:51 Blood Type A Positive 01/02/21 22:51 Antibody Screen NEGATIVE 01/02/21 22:51 Diagnostic Findings [facility] Patient: JANUARY GOYAL (Male) : 67 Status: ER Date: 01/02/21 22:53 Room #: History: RIGHT SIDED FACIAL DROOP, APHASIA, POSITIVE COVID STROKE ALERT Slices: 59 Priors: Tech: Marleni Corona @ [phone] Exams: CT HEAD Contrast: Accession Numbers: [id number] Preliminary Findings Only See Final Report For Complete Findings CT HEAD: No ICH, mass effect or edema. No evidence of acute cortical stroke. Visualized sinuses and mastoid air cells are clear. Radiologist: Anna Resendiz M.D. Study ready at 22:55 and initial results transmitted at 22:59 Communications: Clear Time Type Notes 01/02/21 23:06 Call Doctor Regarding Stroke, called Dr. De Souza on 01/02 23:01 (-05:00) *This report constitutes a preliminary interpretation only. Non-acute findings felt to be unrelated to the clinical presentation may not be discussed in this report. The study will be interpreted and a final report will be generated by the local Radiologist the following shift. To reach the hospital radiology department call [phone]. If a discrepancy is found between the preliminary and final interpretations of this study, please notify us via our Client Portal at [email or web address], [email or web address] [email or web address].You can also fax this report with a description of the discrepancy, or include the final report, to our daytime fax number [phone].If faxing, please indicate the severity of discrepancy using one of the following categories: [ ] 1 - Agree/Informational [ ] 2 - Unlikely to Affect Management [ ] 3 - Possible Eventual Change of Management [ ] 4 - Probable Immediate Change of Management For all other patient related information, please fax us at [phone]. [id number] [facility] Patient: JANUARY GOYAL (Male) : 67 Status: ER Date: 01/02/21 22:55 Room #: History: RIGHT SIDED FACIAL DROOP, APHASIA POSITIVE COVID, STROKE ALERT Slices: [id number] Priors: Tech: Marleni Corona @ [phone] Exams: CTA HEAD Contrast: IV Amt: 117ML OF OPTIRAY 320 Accession Numbers: [id number] Preliminary Findings Only See Final Report For Complete Findings CTA HEAD: Intracranial vessels are patent. No large vessel occlusion or hemodynamically significant stenosis. [place] within normal limits. Dural venous sinuses appear patent. Radiologist: Anna Resendiz M.D. Study ready at 23:00 and initial results transmitted at 23:06 Communications: Clear Time Type Notes 01/02/21 23:08 Call Doctor Regarding Stroke, called Dr. De Souza on 01/02 23:01 (-05:00) *This report constitutes a preliminary interpretation only. Non-acute findings felt to be unrelated to the clinical presentation may not be discussed in this report. The study will be interpreted and a final report will be generated by the local Radiologist the following shift. To reach the hospital radiology department call [phone]. If a discrepancy is found between the preliminary and final interpretations of this study, please notify us via our Client Portal at [email or web address], [email or web address] [email or web address].You can also fax this report with a description of the discrepancy, or include the final report, to our daytime fax number [phone].If faxing, please indicate the severity of discrepancy using one of the following categories: [ ] 1 - Agree/Informational [ ] 2 - Unlikely to Affect Management [ ] 3 - Possible Eventual Change of Management [ ] 4 - Probable Immediate Change of Management For all other patient related information, please fax us at [phone]. [id number] [facility] Patient: JANUARY GOYAL (Male) : 67 Status: ER Date: 01/02/21 23:01 Room #: History: RIGHT SIDED FACIAL DROOP, APHASIA POSITIVE COVID, STROKE ALERT Slices: 1194 Priors: Tech: Marleni Corona @ [phone] Exams: CTA NECK Contrast: IV Amt: 117ML OF OPTIRAY 320 Accession Numbers: [id number] Preliminary Findings Only See Final Report For Complete Findings CTA NECK: The carotid and vertebral arteries of the neck are patent without occlusion or dissection. Mild atherosclerotic plaque of the left distal common carotid artery and carotid bulb without hemodynamically significant stenosis. The left common carotid artery takes a retropharyngeal course. Punctate calcifications and minimal plaque visualized within the right common carotid artery and proximal internal carotid artery of the neck. Atherosclerotic plaque and calcification of the origin of the right ECA. Atherosclerotic calcification of the right vertebral artery appears to result in a moderate focal stenosis. Radiologist: Anna Resendiz M.D. Study ready at 23:07 and initial results transmitted at 23:11 Communications: Clear Time Type Notes 01/02/21 23:12 Call Doctor Regarding Stroke, called Dr. De Souza on 01/02 23:01 (-05:00) *This report constitutes a preliminary interpretation only. Non-acute findings felt to be unrelated to the clinical presentation may not be discussed in this report. The study will be interpreted and a final report will be generated by the local Radiologist the following shift. To reach the hospital radiology department call [phone]. If a discrepancy is found between the preliminary and final interpretations of this study, please notify us via our Client Portal at [email or web address], [email or web address] [email or web address].You can also fax this report with a description of the discrepancy, or include the final report, to our daytime fax number [phone].If faxing, please indicate the severity of discrepancy using one of the following categories: [ ] 1 - Agree/Informational [ ] 2 - Unlikely to Affect Management [ ] 3 - Possible Eventual Change of Management [ ] 4 - Probable Immediate Change of Management For all other patient related information, please fax us at [phone]. [id number] [facility] Patient: JANUARY GOYAL (Male) : 67 Status: IP Date: 01/03/21 03:29 Room #: E220 History: COVID ISSUES. LOST ABILITY TO SPEAK AND WRITE FOR ABOUT 12 HOURS(AT TIME OF SCREENING). LEFT LIP DROOP. SYMPTOMS STARTED AT [id number] SATURDAY. NO RECENT HEAD INJURY. NO HX STROKE/TIA. PT COVID +. Slices: 268 Priors: CTA HEAD/NECK, CT HEAD Tech: Selvin Godoy @ [phone] Exams: MRI HEAD Contrast: Accession Numbers: [id number] Preliminary Findings Only See Final Report For Complete Findings MRI HEAD : There is an area of restricted diffusion involving the cortical and subcortical white matter of the posterior right frontal lobe and to a lesser extent the right temporal lobe, compatible with an acute infarct. No hemorrhagic transformation. Scattered foci of T2 hyperintensity within the supratentorial white matter are nonspecific but likely a sequela of mild chronic microvascular ischemic disease. Radiologist: Anna Resendiz M.D. Study ready at 03:32 and initial results transmitted at 03:49 Results also transmitted to [facility] ([id number]) @ [phone] (Fax) Communications: Clear Time Type Notes 01/03/21 04:08 Call Doctor Regarding Stroke, called Dr. Smith on 01/03 04:08 (-05:00) *This report constitutes a preliminary interpretation only. Non-acute findings felt to be unrelated to the clinical presentation may not be discussed in this report. The study will be interpreted and a final report will be generated by the local Radiologist the following shift. To reach the [facility] radiology d epartment call [phone]. If a discrepancy is found between the preliminary and final interpretations of this study, please notify us via our Client Portal at [email or web address], [email or web address] [email or web address].You can also fax this report with a description of the discrepancy, or include the final report, to our daytime fax number [phone].If faxing, please indicate the severity of discrepancy using one of the following categories: [ ] 1 - Agree/Informational [ ] 2 - Unlikely to Affect Management [ ] 3 - Possible Eventual Change of Management [ ] 4 - Probable Immediate Change of Management For all other patient related information, please fax us at [phone]. [id number] Code Status & VTE Plan Code Status full code VTE Prophylaxis Plan VTE Prophylaxis will be ordered: Yes PG Care Time/CCT Total # of Minutes Spent Total Time Spent with Patient: Total time spent is greater than 50% in coordination of care (as documented) at patient's floor/unit and/or counseling patient: Coding Level of Care Code 16015 OBS Care - Level 3 Diagnoses Acute CVA (cerebrovascular accident) I63.9 Aphasia R47.01 Pneumonia due to 2019-nCoV U07.1; J12.82 Myocarditis due to 2019 novel coronavirus U07.1; I40.0 Ectatic aorta I77.819
[2021-01-03] MEDS ORDERED: LORazepam 0.5 MG/1 ML VIAL IV STA (02:12)
[2021-01-03] MEDS ORDERED: LORazepam 2 MG/4 ML VIAL ONE (02:14)
[2021-01-03] MEDS ORDERED: ONDANSETRON INJ 2 MG/ML 2 ML VIAL IV PRN (03:41)
[2021-01-03] MEDS ORDERED: PHARMACIST DISCHARGE MED REC CONSULT PRN (03:41)
[2021-01-03] MEDS ORDERED: NSS + 20MEQ KCL 20 MEQ/1,000 ML BAG IV SCH (03:41)
[2021-01-03 06:52] LABS: Appearance Urine Clear (Clear); Bilirubin Urine Negative (Negative); Blood Urine Negative (Negative); Color Urine Yellow; Glucose Urine UA Negative (Negative); Ketones Urine Negative (Negative); Leukocyte Esterase Urine Negative (Negative); Nitrite Urine Negative (Negative); Protein Urine Negative (Negative); Specific Gravity Urine > 1.045 (1.000-1.030); Urobilinogen Urine Negative (Negative); pH Urine 5.5 (4.5-7.5)
--- NOTE | 2021-01-03 07:04 | XRay Report ---
XR chest 1V portable CLINICAL HISTORY: weakness, COVID COMPARISON STUDY: Chest radiograph and chest CT December 26, 2020. FINDINGS: Lung volumes are diminished. This is unchanged. There is no pneumothorax or pleural effusio n. Multifocal bilateral airspace opacities are noted. Left lung airspace opacity has slightly improve d. Cardiomegaly is unchanged. There is no evidence for pulmonary edema. IMPRESSION: 1. Persistent, but slightly improved, bilateral airspace opacities consistent with an infectious proc ess. 2. Cardiomegaly. ACT 112: Negative or not required by law. Electronically signed by: Bernardo Chino M.D. 01/03/2021 7:03 AM
--- NOTE | 2021-01-03 07:10 | CT Scan Report ---
HEAD CT NONCONTRAST CT DOSE: 1205.90 mGy.cm HISTORY: Right-sided facial droop. Stroke Like Symptoms TECHNIQUE: Multiaxial CT images of the head were performed without the use of intravenous contrast. A utomated exposure control was utilized for this study. A dose lowering technique was utilized adheri ng to the principles of ALARA. Comparison: None. Findings: The paranasal sinuses and mastoid air cells are clear. The calvarium and skull base are int act. The ventricles and sulci are within normal limits. There is no mass, hematoma, midline shift, or acute infarct. Impression: No acute intracranial abnormality. ACT 112: Negative or not required by law. Electronically signed by: Gil Alvarez M.D. 01/03/2021 7:09 AM
--- NOTE | 2021-01-03 07:18 | CT Scan Report ---
HEAD & NECK CTA HISTORY: Right-sided facial droop. Stroke Like Symptoms TECHNIQUE: Multiaxial CT images of the head were performed following the intravenous administration o f contrast to evaluate the major cerebral vessels. Multiaxial CT images of the neck were also perform ed following the intravenous administration of contrast to evaluate the major cervical vessels. Maxim um intensity projection images were also obtained. A dose lowering technique was utilized adhering to the principles of ALARA. COMPARISON: Head CT 01/02/2021. FINDINGS: There is no mass, hematoma, midline shift, or acute infarct. Visualized intracranial internal carotid arteries, distal vertebral arteries, and basilar artery are widely patent. There is no significant s tenosis, occlusion, or aneurysm seen within the bilateral ACAs, MCAs, or breaker operator. The major dural venous sinuses are patent. There is a persistent right posterior circulation. The aortic arch and proximal great vessels are widely patent. There is no significant stenosis, occ lusion, or dissection identified within the bilateral common carotid, internal carotid, or left verte bral arteries. Mild calcified plaque within the bilateral carotid bifurcations. Mild mediastinal lymp hadenopathy. Dominant right paratracheal lymph node measures 1.9 x 1.2 cm. There appear to be a few s mall faint groundglass densities within the upper lobes. A 2.9 cm left thyroid nodule. Moderate focal narrowing at the origin of the right vertebral artery due to the calcified plaque. IMPRESSION: 1. No significant stenosis, occlusion, or aneurysm within the [place]. 2. No significant stenosis, occlusion, or dissection identified within the carotid or left vertebral arteries. Moderate focal narrowing at the origin of the right vertebral artery due to the calcified p laque. 3. A few small faint groundglass densities within the upper lobes. This could represent a viral pneum onia. 4. Mild mediastinal lymphadenopathy. This could be reactive to the suspected pneumonia. 5. A 2.9 cm left thyroid nodule. Follow-up nonemergent ultrasound recommended. ACT 112: Positive. There are findings on this exam that require communication between the performing entity and the patient following Patient Test Result Information Act ([place] Act 112) guidelines. Electronically signed by: Gil Alvarez M.D. 01/03/2021 7:17 AM
--- NOTE | 2021-01-03 07:18 | CT Scan Report ---
HEAD & NECK CTA HISTORY: Right-sided facial droop. Stroke Like Symptoms TECHNIQUE: Multiaxial CT images of the head were performed following the intravenous administration o f contrast to evaluate the major cerebral vessels. Multiaxial CT images of the neck were also perform ed following the intravenous administration of contrast to evaluate the major cervical vessels. Maxim um intensity projection images were also obtained. A dose lowering technique was utilized adhering to the principles of ALARA. COMPARISON: Head CT 01/02/2021. FINDINGS: There is no mass, hematoma, midline shift, or acute infarct. Visualized intracranial internal carotid arteries, distal vertebral arteries, and basilar artery are widely patent. There is no significant s tenosis, occlusion, or aneurysm seen within the bilateral ACAs, MCAs, or credit card control clerk. The major dural venous sinuses are patent. There is a persistent right posterior circulation. The aortic arch and proximal great vessels are widely patent. There is no significant stenosis, occ lusion, or dissection identified within the bilateral common carotid, internal carotid, or left verte bral arteries. Mild calcified plaque within the bilateral carotid bifurcations. Mild mediastinal lymp hadenopathy. Dominant right paratracheal lymph node measures 1.9 x 1.2 cm. There appear to be a few s mall faint groundglass densities within the upper lobes. A 2.9 cm left thyroid nodule. Moderate focal narrowing at the origin of the right vertebral artery due to the calcified plaque. IMPRESSION: 1. No significant stenosis, occlusion, or aneurysm within the [place]. 2. No significant stenosis, occlusion, or dissection identified within the carotid or left vertebral arteries. Moderate focal narrowing at the origin of the right vertebral artery due to the calcified p laque. 3. A few small faint groundglass densities within the upper lobes. This could represent a viral pneum onia. 4. Mild mediastinal lymphadenopathy. This could be reactive to the suspected pneumonia. 5. A 2.9 cm left thyroid nodule. Follow-up nonemergent ultrasound recommended. ACT 112: Positive. There are findings on this exam that require communication between the performing entity and the patient following Patient Test Result Information Act ([place] Act 112) guidelines. Electronically signed by: Gil Alvarez M.D. 01/03/2021 7:17 AM
--- NOTE | 2021-01-03 07:21 | Magnetic Resonance Report ---
Brain MRI WITHOUT CONTRAST HISTORY: Left-sided facial droop. stroke-like symptoms,. COVID-19 TECHNIQUE: Multiplanar multisequence MRI of the brain was performed without the use of contrast. COMPARISON STUDY: Head CT 01/02/2021. FINDINGS: There is a small focus of restricted diffusion involving the right frontal temporal region which measures approximately 3.2 cm in size. This is consistent with an acute right MCA territory inf arct. Otherwise, the midline structures are intact. There is associated mild edema at the area of inf arct. There is no mass, hematoma, midline shift. The orbits are unremarkable. The paranasal sinuses a nd mastoid air cells are clear. The major vascular flow-voids at the skull base are well-maintained. Ventricles are normal in size. IMPRESSION: Small acute right MCA territory infarct. ACT 112: Negative or not required by law. Electronically signed by: Gil Alvarez M.D. 01/03/2021 7:20 AM
[2021-01-03 07:36] LABS: BUN Creatinine Ratio 8.7 (10-20); Calcium 9.6 mg/dl (8.5-10.1); Creatinine Clr Calc Pharmacy 101.3 ml/min; Est GFR (African American) 99.7; Potassium 4.9 mmol/L (3.5-5.1)
[2021-01-03 07:40] LABS: Troponin I 0.029 ng/ml (0-0.045)
[2021-01-03 07:57] LABS: Estimated Average Glucose 126 mg/dl
[2021-01-03] MEDS: ENOXAPARIN INJ 40 MG/0.4 ML SYR SQ SCH (08:10)
[2021-01-03] MEDS: dexAMETHasone 6 MG in SYRINGE 0 ML IV SCH (08:10)
--- NOTE | 2021-01-03 08:27 | Electroencephalogram ---
EEG Procedure Note Date of Service January 03, 2021 Start / End Times Start Time: 709 End Time: 729 Home Medication List Medication Instructions Recorded Confirmed Type acetaminophen [Tylenol] 325 mg PO Q6H PRN #30 tab 12/27/20 01/02/21 Rx aspirin 81 mg PO DAILY #30 tab 12/27/20 01/02/21 Rx Inpatient Medication List Enoxaparin Sodium (Enoxaparin Inj 40 Mg/0.4 Ml Syr) 40 mg SQ Q24H JOHN Stop: 02/02/21 08:59 Last Admin: 01/03/21 08:10 Dose: 40 mg Documented by: [id number] Dexamethasone 6 mg/ Syringe 1.5 mls @ 1 mls/min IV QAM JOHN Stop: 02/02/21 08:59 Last Admin: 01/03/21 08:10 Dose: 1 mls/min Documented by: [id number] Potassium Chloride/Sodium Chloride (Normal Saline W/20 Meq Kcl) 20 meq in 1,000 mls @ 80 mls/hr IV .[id number] [facility] Stop: 02/02/21 03:40 Last Admin: 01/03/21 04:31 Dose: 80 mls/hr Documented by: [id number] Discontinued Medications Dexamethasone (Dexamethasone Sod Inj 4 Mg/Ml Vial) 10 mg IV NOW STA Stop: 01/03/21 00:54 Last Admin: 01/03/21 01:32 Dose: Not Given Documented by: [id number] Dexamethasone (Dexamethasone Sod Inj 10 Mg/Ml Vial) Confirm Administered Dose 10 mg .ROUTE .STK-MED ONE Stop: 01/03/21 00:57 Last Admin: 01/03/21 01:00 Dose: 10 mg Documented by: [id number] Sodium Chloride (Nss 1000ml) 1,000 mls @ 999 mls/hr IV .Q1H1M ONE Stop: 01/02/21 23:55 Last Infusion: 01/03/21 00:09 Dose: 0 mls/hr Documented by: [id number] Admin: 01/02/21 23:07 Dose: 999 mls/hr Documented by: [id number] Magnesium Sulfate/Dextrose (Magnesium Sulfate / D5w) 1 gm in 100 mls @ 200 mls/hr IV Q30M JOHN Stop: 01/03/21 00:44 Last Infusion: 01/03/21 01:32 Dose: 0 mls/hr Documented by: [id number] Admin: 01/03/21 00:40 Dose: 200 mls/hr Documented by: [id number] Infusion: 01/03/21 00:39 Dose: 200 mls/hr Documented by: [id number] Admin: 01/03/21 00:09 Dose: 200 mls/hr Documented by: [id number] Lorazepam (Ativan) 0.5 mg in 1 mls @ 1 mls/min IV NOW STA Stop: 01/03/21 02:13 Last Admin: 01/03/21 02:21 Dose: Not Given Documented by: [id number] Ioversol (Optiray 320 125ml) 125 ml IV ONCE ONE Stop: 01/02/21 22:51 Last Admin: 01/02/21 22:50 Dose: 117 ml Documented by: [id number] Lorazepam (Lorazepam 2 Mg/4 Ml Vial) Confirm Administered Dose 2 mg .ROUTE .[facility] ONE Stop: 01/03/21 02:15 Last Admin: 01/03/21 02:21 Dose: 0.5 mg Documented by: [id number] Description This is a 21 electrode EEG with a single channel dedicated to limited EKG. The electrodes were placed in accordance with the International 10-20 system.
[2021-01-03] MEDS ORDERED: ENOXAPARIN INJ 60 MG/0.6 ML SYR SQ SCH (09:00)
--- NOTE | 2021-01-03 09:22 | Neurology Consultation ---
Date of Consultation January 03, 2021 Assessment & Plan (1) Acute CVA (cerebrovascular accident): (2) Aphasia: (3) Facial droop: (4) Hypertension: this patient suffered an acute right frontotemporal stroke of the small nature January 02. Is resulted in a significant expressive aphasia, mild left facial droop, and upgoing toes on the left with plantar stimulation. He is stable and starting to be able to say some words. Etiology of the stroke is likely small vessel ischemic. He is Covid-19 positive diagnosed December 26. Covid-19 can be associated with stroke. He has some mild myocarditis and possibly some very minimal pneumonia changes seen on CT scan because of Covid-19. He has hypertension and this may be the reason for the small vessel ischemia. It fluctuates despite be on 81 milligram aspirin tablet daily. Recommendations: 1. he add clopidogrel 75 milligrams a day to the 81 milligram aspirin and then after 3 weeks discontinue the aspirin and remain on clopidogrel 75 milligrams daily alone. 2. Awaiting echocardiogram. 3. Control blood pressure as you are doing, aiming for a mean arterial pressure of approximately 95-100, and avoiding over-correction. 4. hemoglobin A1c is slightly elevated at 6.0. Controlled glucose with diet. 5. total cholesterol was elevated at 230. he theoretically would be a high-dose statin candidate. 6. Speech therapy to evaluate and treat. Increase activity as able. Overall, I spent a total of 100 minutes with this case including review of records, review of CT and MRI films, direct evaluation of the patient at bedside, and discussion of the case with the patient at bedside, RN at bedside, and Dr. Covington, including differential diagnosis and treatment options. History of Present Illness Reason for Consultation: Patient is a 55-year-old, who I was asked to see at the request of Dr. Smith, for neurologic consultation regarding stroke. Requesting Physician: Dr. Smith Attending Physician: Kendall Covington DO History of Present Illness patient was diagnosed with Covid-19 and was positive. He had a lot of sinus congestion and pressure. He had a little bit of difficulty breathing and cough. He was admitted for 24 hours and then discharged. Blood pressure was 120- 130/90 range. He had elevated troponin and saw Dr. Farley, cmm inspector. There was some elevated troponins they were unremarkable. He has an ectatic aorta of 4 centimeters in the ascending portion. The patient was doing fairly well over the next several days at home but was tired and a little "dizzy". He was not eating. He had no pain or headache. He had no shortness of breath or breathing issues. Somewhere around noon to 1 p.m. on January 02 he had the onset of slurred speech and a left facial droop. His speech then stopped and he could understand but not get out any words. He was not in pain did not seem to have any gait or weakness problem. He may have had a little blurry vision but no double vision. He arrived to the emergency room January 02 at 2240, with a temperature of 36.8, pulse 130, blood pressure 170/96, blood pressure 20, O2 saturation 93 percent. He could not get words out and left facial droop. He understood and no issues in his limbs. CT scan of the head was unremarkable. He was out of the window for tPA. CBC showed elevated white count (neutrophils). Chem profile showed a glucose of 130 . He was given dexamethasone in the emergency room. He remains on Lovenox and baby aspirin. CT angiography of the head neck were unremarkable except for some increased mediastinal lymph nodes and evidence to suggest a viral pneumonia process. The re was a left thyroid nodule. There were no vessel stenoses are anomalies. MRI of the brain showed a small wedge like right frontotemporal stroke of an acute nature. He had some mild old small vessel ischemic changes as well. The patient has done well since admission and has not changed although he is starting the and some words out. Blood pressure fluctuates between elevated and normal. Currently it is 109/79. Allergies Allergy/AdvReac Type Severity Reaction Status Date / Time No Known Allergies Allergy Verified 01/02/21 23:11 Home Medications Medication Instructions Recorded Confirmed Type acetaminophen [Tylenol] 325 mg PO Q6H PRN #30 tab 12/27/20 01/02/21 Rx aspirin 81 mg PO DAILY #30 tab 12/27/20 01/02/21 Rx Patient History Medical History Morbid obesity No pertinent family history No pertinent past medical history Surgical History H/O right knee surgery History of tonsillectomy No pertinent past surgical history Family History Mother No problems noted. Father No problems noted. 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 Feels Safe at Home: Yes Safety Concerns: Feels Safe At This Time Assistive Devices: None Review of Systems Constitutional: + fatigue; no fever and no weakness Eyes: no diplopia, no eye pain and no worsening vision Ear, Nose, Mouth, Throat: no ear pain, no tinnitus, no hearing loss, no dizziness, no hoarseness and no dysphagia Respiratory: no cough and no dyspnea Cardiovascular: no chest pain, no palpitations and no lightheadedness Gastrointestinal: no abdominal pain, no nausea and no vomiting Genitourinary: no dysuria and no urinary incontinence Musculoskeletal: no back pain, no neck pain, no radicular pain, no joint pain and no myalgia Integumentary: no rash and no lesions Neurologic: + abnormal speech; no gait abnormality, no localized weakness, no generalized weakness, no tingling, no numbness, no tremor(s), no abnormal movements, no headache(s), no confusion and no memory loss Psychiatric: no depression, no irritability, no anxiety, no difficulty concentrating, no confusion and no hallucinations Endocrine: no fatigue and no flushing Hematologic / Lymphatic: no easy bleeding and no easy bruising Allergy / Immunological: no urticaria and no problem reported Exam (Neuro) Physical Exam: The patient is right-handed. The patient is awake, alert, and attentive. Speech is difficult. He understands everything I say and follows commands. He can get a few words out but he cannot speak sentences. He cannot name objects or repeat. He does not have spontaneous speech. Otherwise, Mentation and thought processes are intact, with orientation to person, place and time, and normal fund of knowledge. Attention and concentration are normal. Mood and affect seem to be normal and appropriate. General appearance and grooming are normal. Short and long-term memory seem to be relatively intact. Pupils are 4 mm bilaterally and reactive to light. Extraocular eye muscles are intact without nystagmus. Visual acuity and visual regalado seem normal grossly to confrontation. There are no deficits to sensation in the face in all 3 distributions of the fifth cranial nerve bilaterally. Corneal reflexes are positive bilaterally. there is a mild droop of the corner of the mouth on the left. Hearing seems normal to whisper and finger rub bilaterally. Palate moves well without asymmetry. There is normal sternocleidomastoid and trapezius (shoulder shrug) strength bilaterally. Tongue is midline with good strength bilaterally. Neck has a full range of motion without discomfort. There are no cervical bruits bilaterally. There are no cranial or ocular bruits. Gait is not tested and stance is reasonable sitting in bed. With outstretched arms there is no drift. There are no resting, postural, or action tremors. There is no ataxia with finger to nose testing. There is good facility in the hands. No other abnormal involuntary movements are noted. Motor strength is 5/5 diffusely in the arms bilaterally including deltoids, biceps, triceps, brachioradialis, wrist flexors and extensors, shift foreman, and intrinsic hand muscles. Motor strength is 5/5 diffusely in the legs bilaterally including hip flexors, quadriceps, hamstrings, gastrocnemius, tibialis anterior, tibialis posterior, and Peroneii muscles. Toe extensors are normal and there is good bulk in the extensor digitorum brevis muscles bilaterally. The limbs have good tone without rigidity or spasticity. There is no atrophy noted in the muscles. Muscle bulk is normal, there is no tenderness to palpation, no myotonia to percussion, and no fasciculations seen. Sensory examination is intact to touch and pin throughout all 4 limbs diffusely. Reflexes are 1/4 in the biceps, triceps, brachioradialis, quadriceps, and Achilles tendons bilaterally. There is no clonus bilaterally. Toes are downgoing with plantar stimulation on the right and upgoing on the left. Peripheral pulses are present and of normal quality distally in all 4 limbs. There is no peripheral edema noted in the limbs. Results & Data ([facility]) Vital Signs (Past 12 Hours) Vital Signs Temp Pulse Pulse Resp BP BP Pulse Ox 01/03/21 07:25 36.9 C 109 H 18 109/79 98 01/03/21 05:45 120 H 01/03/21 03:30 37 C 118 H 16 131/96 93 01/03/21 02:00 117 H 18 118/79 95 01/03/21 01:50 119 H 15 96 01/03/21 01:40 119 H 29 H 97 01/03/21 01:30 121 H 24 141/93 H 95 01/03/21 01:20 117 H 32 H 96 01/03/21 01:10 118 H 15 98 01/03/21 01:02 120 H 17 112/80 97 01/03/21 01:00 116 H 25 H 96 01/03/21 00:50 121 H 15 96 01/03/21 00:40 115 H 28 H 97 01/03/21 00:30 111 H 18 97 01/03/21 00:20 115 H 17 96 01/03/21 00:10 120 H 22 95 01/03/21 00:01 123 H 19 134/92 97 01/03/21 00:00 120 H 27 H 95 01/02/21 23:52 121 H 16 155/95 H 97 01/02/21 23:50 121 H 13 98 01/02/21 23:40 124 H 14 93 01/02/21 23:31 122 H 12 94 01/02/21 23:30 130 H 14 143/107 H 100 01/02/21 23:20 124 H 18 01/02/21 23:10 123 H 20 93 01/02/21 23:00 133 H 18 97 01/02/21 22:59 36.8 C 128 H 20 141/79 H 93 01/02/21 22:56 130 H 21 141/79 H 93 01/02/21 22:43 130 H 13 01/02/21 22:40 130 H 20 170/96 H PG Care Time/CCT Total # of Minutes Spent Total Time Spent with Patient: Total time spent is greater than 50% in coordination of care (as documented) at patient's floor/unit and/or counseling patient: Coding Level of Care Code 13658 Inpt Consult Level 5 Diagnoses Acute CVA (cerebrovascular accident) I63.9 Aphasia R47.01 Facial droop R29.810 Hypertension I10 Time Spent (min) 100
[2021-01-03 10:38] LABS: iSTAT Blood Urea Nitrogen 10 mg/dl (7-18); iSTAT Carbon Dioxide 26 mmol/L (24-31); iSTAT Chloride 98 mmol/L (101-112); iSTAT Hematocrit 44 % (42-52); iSTAT Ionized Calcium 1.15 mmol/l (1.12-1.32); iSTAT Potassium 4.3 mmol/L (3.3-5.0); iSTAT Sodium 136 mmol/L (135-144)
--- NOTE | 2021-01-03 12:20 | Hospitalist Progress Note ---
Date of Service January 03, 2021 Assessment & Plan (1) Acute CVA (cerebrovascular accident): presented with acute onset aphasia, left facial droop, altered mental status MRI brain with small right MCA stroke most likely etiology is small vessel disease Dr. Clement recommends aspirin and Plavix for three weeks, then just Plavix 75mg daily will start on Lipitor 40mg daily, LDL is 178 and HDL is very low at 24 might need to titrate up to higher dose BP is elevated at times, ranging 140-170 and he has some baseline tachycardia, HR in 100s start on Toprol 25mg daily, first dose today HbA1c is 6.0, no need for medication, discussed weight loss and life style changes awaiting results of echo with bubble study CT of head without contrast, CTA head neck without acute findings. 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 awaiting echocardiogram results (5) Ectatic aorta: Noted during last admission, with plan for follow-up echocardiogram in the outpatient setting Admission and Anticipated Discharge Date Admission Date: January 03, 2021 Subjective patient doing better today, still not speaking very well, expressive aphasia understands all directions MRI reviewed, discussed with Dr. Clement, small right MCA stroke likely small vessel etiology, will work on blood pressure control, statin therapy, aspirin and Plavix awaiting echo results he is doing well with PT/OT, walking halls, no issues with discharge from strength and mobility perspective he is asking about outpatient speech therapy, we can arrange I discussed plans for discharge tomorrow morning, he agrees I updated his over the phone Review of Systems Review of Systems: All systems reviewed & are unremarkable except as noted in Subjective Constitutional: no fever, no chills, no sweats, no fatigue and no weakness Respiratory: no cough and no dyspnea Cardiovascular: no chest pain and no edema Neurologic: + abnormal speech (expressive aphasia) Physical Exam Constitutional: WD/WN, vitals as above + obese; no acute distress Neck: trachea midline, no thyromegaly Respiratory: normal respiratory effort, lungs clear to auscultation Cardiovascular: RRR, no murmur, no edema Gastrointestinal (Abdomen): normal bowel sounds, soft, nontender, no hepatosplenomegaly Musculoskeletal: no cyanosis or clubbing, extremities motor strength 5/5 Skin: no rashes, warm and dry Neurologic: normal touch/pain/proprioception, CN's II-XI intact bilaterally, deep tendon reflexes 2+ bilaterally, normal sensation to monofilament, moves all extremities and awake; no focal motor deficits Speech / Cognition: + expressive aphasia (difficulty initiating speech, understands all directions) Motor/Sensory: no tremor and no pronator drift Psychiatric: A+Ox3, euthymic affect Lymphatic: no cervical or axillary lymphadenopathy Results & Data Results & Data ([facility]) Vital Signs (Past 12 Hours) Vital Signs Temp Pulse Pulse Resp BP BP Pulse Ox 01/03/21 12:00 36.5 C 101 H 18 141/83 H 95 01/03/21 08:00 120 H 01/03/21 07:25 36.9 C 109 H 18 109/79 98 01/03/21 05:45 120 H 01/03/21 03:30 37 C 118 H 16 131/96 93 01/03/21 02:00 117 H 18 118/79 95 01/03/21 01:50 119 H 15 96 01/03/21 01:40 119 H 29 H 97 01/03/21 01:30 121 H 24 141/93 H 95 01/03/21 01:20 117 H 32 H 96 01/03/21 01:10 118 H 15 98 01/03/21 01:02 120 H 17 112/80 97 01/03/21 01:00 116 H 25 H 96 01/03/21 00:50 121 H 15 96 01/03/21 00:40 115 H 28 H 97 01/03/21 00:30 111 H 18 97 Laboratory Results Laboratory Results - last 24 hr 01/02/21 01/02/21 01/02/21 22:47 22:51 22:51 WBC 10.87 H RBC 4.52 L Hgb 15.0 POC Hgb 15.0 Hct 42.4 POC Hct 44 MCV 93.8 MCH 33.2 MCHC 35.4 RDW Std Deviation 46.5 H RDW Coeff of Brannon 13.5 Plt Count 369 MPV 9.8 Immature Gran % (Auto) 0.5 Neut % (Auto) 74.6 Lymph % (Auto) 11.2 Lawrence % (Auto) 11.8 Eos % (Auto) 1.8 Baso % (Auto) 0.1 Neut # (Auto) 8.11 H Lymph # (Auto) 1.22 Lawrence # (Auto) 1.28 H Eos # (Auto) 0.20 Baso # (Auto) 0.01 Immature Gran # (Auto) 0.05 H PT INR APTT PTT Ratio POC Sodium 136 Sodium POC Potassium 4.3 Potassium POC Chloride 98 L Chloride Carbon Dioxide POC Total CO2 26 Anion Gap POC Anion Gap 17.0 POC BUN 10 BUN Creatinine POC Creatinine 1.0 Est Cr Clr Drug Dosing Est GFR ( Amer) Est GFR (Non-Af Amer) BUN/Creatinine Ratio Glucose POC Glucose (other) TNP Estimat Average Glucose Hemoglobin A1c Calcium POC Ioniz Calcium Jennifer 1.15 Magnesium Total Bilirubin AST ALT Alkaline Phosphatase Troponin I Total Protein Albumin Globulin Albumin/Globulin Ratio Triglycerides Cholesterol LDL Cholesterol, Calc VLDL Cholesterol, Calc HDL Cholesterol Cholesterol/HDL Ratio Urine Color Urine Appearance Urine pH Ur Specific [place] Urine Protein Urine Glucose (UA) Urine Ketones Urine Blood Urine Nitrite Urine Bilirubin Urine Urobilinogen Ur Leukocyte Esterase Blood Type A Positive Antibody Screen NEGATIVE 01/02/21 01/02/21 01/03/21 22:51 22:51 06:40 WBC RBC Hgb POC Hgb Hct POC Hct MCV MCH MCHC RDW Std Deviation RDW Coeff of Brannon Plt Count MPV Immature Gran % (Auto) Neut % (Auto) Lymph % (Auto) Lawrence % (Auto) Eos % (Auto) Baso % (Auto) Neut # (Auto) Lymph # (Auto) Lawrence # (Auto) Eos # (Auto) Baso # (Auto) Immature Gran # (Auto) PT 11.9 INR 1.1 APTT 26.3 PTT Ratio 0.9 POC Sodium Sodium 134 L 135 L POC Potassium Potassium 4.1 4.9 D POC Chloride Chloride 101 104 Carbon Dioxide 25 24 POC Total CO2 Anion Gap 8.0 7.0 POC Anion Gap POC BUN BUN 9 9 Creatinine 1.12 0.99 POC Creatinine Est Cr Clr Drug Dosing 89.9 101.3 Est GFR ( Amer) 85.9 99.7 Est GFR (Non-Af Amer) 74.1 86.0 BUN/Creatinine Ratio 8.0 L 8.7 L Glucose 131 H 162 H POC Glucose (other) Estimat Average Glucose Hemoglobin A1c Calcium 9.7 9.6 POC Ioniz Calcium Jennifer Magnesium 2.1 Total Bilirubin 0.8 AST 34 ALT 73 Alkaline Phosphatase 87 Troponin I 0.029 0.029 Total Protein 8.5 H Albumin 3.4 Globulin 5.1 H Albumin/Globulin Ratio 0.7 L Triglycerides 141 Cholesterol 230 H LDL Cholesterol, Calc 178 VLDL Cholesterol, Calc 28 HDL Cholesterol 24 Cholesterol/HDL Ratio 10 Urine Color Urine Appearance Urine pH Ur Specific [place] Urine Protein Urine Glucose (UA) Urine Ketones Urine Blood Urine Nitrite Urine Bilirubin Urine Urobilinogen Ur Leukocyte Esterase Blood Type Antibody Screen 01/03/21 01/03/21 06:40 06:40 WBC RBC Hgb POC Hgb Hct POC Hct MCV MCH MCHC RDW Std Deviation RDW Coeff of Brannon Plt Count MPV Immature Gran % (Auto) Neut % (Auto) Lymph % (Auto) Lawrence % (Auto) Eos % (Auto) Baso % (Auto) Neut # (Auto) Lymph # (Auto) Lawrence # (Auto) Eos # (Auto) Baso # (Auto) Immature Gran # (Auto) PT INR APTT PTT Ratio POC Sodium Sodium POC Potassium Potassium POC Chloride Chloride Carbon Dioxide POC Total CO2 Anion Gap POC Anion Gap POC BUN BUN Creatinine POC Creatinine Est Cr Clr Drug Dosing Est GFR ( Amer) Est GFR (Non-Af Amer) BUN/Creatinine Ratio Glucose POC Glucose (other) Estimat Average Glucose 126 Hemoglobin A1c 6.0 H Calcium POC Ioniz Calcium Jennifer Magnesium Total Bilirubin AST ALT Alkaline Phosphatase Troponin I Total Protein Albumin Globulin Albumin/Globulin Ratio Triglycerides Cholesterol LDL Cholesterol, Calc VLDL Cholesterol, Calc HDL Cholesterol Cholesterol/HDL Ratio Urine Color Yellow Urine Appearance Clear Urine pH 5.5 Ur Specific [place] > 1.045 H Urine Protein Negative Urine Glucose (UA) Negative Urine Ketones Negative Urine Blood Negative Urine Nitrite Negative Urine Bilirubin Negative Urine Urobilinogen Negative Ur Leukocyte Esterase Negative Blood Type Antibody Screen Medications Administered Current Inpatient Medications Aspirin (Aspirin 81 Mg Ectab) 81 mg PO DAILY [facility] Stop: 02/02/21 08:59 Atorvastatin Calcium (Atorvastatin 40 Mg Tab) 40 mg PO QAM [facility] Stop: 02/02/21 11:29 Clopidogrel Bisulfate (Clopidogrel Bisulfate 75 Mg Tab) 75 mg PO QAM [facility] Stop: 02/02/21 11:29 Enoxaparin Sodium (Enoxaparin Inj 40 Mg/0.4 Ml Syr) 40 mg SQ Q24H JOHN Stop: 02/02/21 08:59 Last Admin: 01/03/21 08:10 Dose: 40 mg Documented by: Dexamethasone 6 mg/ Syringe 1.5 mls @ 1 mls/min IV QAM JOHN Stop: 02/02/21 08:59 Last Admin: 01/03/21 08:10 Dose: 1 mls/min Documented by: [email or web address] Information (Pharmacist Discharge Med Rec Consult) 1 ea N/A UD PRN PRN Reason: Consult Stop: 02/02/21 03:40 Ondansetron HCl (Ondansetron Inj 2 Mg/Ml 2 Ml Vial) 4 mg IV Q6H PRN PRN Reason: Nausea Stop: 02/02/21 03:40 PG Care Time/CCT Total # of Minutes Spent Total Time Spent: 35 Total Time Spent with Patient: Total time spent is greater than 50% in coordination of care (as documented) at patient's floor/unit and/or counseling patient: Coding Level of Care Code 47196 Subseq Obs Care Lvl 3 Diagnoses Acute CVA (cerebrovascular accident) I63.9 Aphasia R47.01 Pneumonia due to 2019-nCoV U07.1; J12.82 Myocarditis due to 2019 novel coronavirus U07.1; I40.0 Ectatic aorta I77.819
[2021-01-03] MEDS: ASPIRIN 81 MG ECTAB PO SCH (12:56)
[2021-01-03] MEDS: ATORVASTATIN 40 MG TAB PO SCH (12:56)
[2021-01-03] MEDS: CLOPIDOGREL BISULFATE 75 MG TAB PO SCH (12:57)
[2021-01-03] MEDS ORDERED: METOPROLOL SUCC 25MG EXT REL TAB PO SCH (13:30)
--- NOTE | 2021-01-03 14:27 | Electrocardiogram Report ---
Test Reason : Blood Pressure : / mmHG Vent. Rate : 131 BPM Atrial Rate : 131 BPM P-R Int : 152 ms QRS Dur : 114 ms QT Int : 284 ms P-R-T Axes : 050 -42 106 degrees QTc Int : 419 ms Poor data quality, interpretation may be adversely affected Sinus tachycardia Possible Left atrial enlargement Left axis deviation Left ventricular hypertrophy with repolarization abnormality Abnormal ECG When compared with ECG of 27-DEC-2020 12:03, T wave inversion less evident in Lateral leads Confirmed by Sedrick Onofre ([id number]) on 01/03/2021 2:26:49 PM Referred By: REFERRED SELF Confirmed By:Sedrick Onofre
[2021-01-03] MEDS ORDERED: LORazepam 0.5 MG TAB PO PRN (14:51)
[2021-01-04 06:27] LABS: Basophils # (auto) 0.01 K/uL (0-0.2); Basophils % (auto) 0.1 %; Eosinophils # (auto) 0.01 K/uL (0-0.5); Eosinophils % (auto) 0.1 %; Hematocrit (blood only) 40.9 % (42-52); Hemoglobin 14.2 g/dL (14.0-18.0); Immature Granulocytes # (auto) 0.05 K/uL (0.00-0.02); Immature Granulocytes % (auto) 0.4 %; Lymphocytes # (auto) 0.94 K/uL (1.2-3.4); Lymphocytes % (auto) 7.2 %; Mean Corpuscular Hemoglobin 32.8 pg (25-34); Mean Corpuscular Hgb Conc 34.7 g/dL (32-36); Mean Corpuscular Volume 94.5 fL (80-100); Mean Platelet Volume 10.5 fL (7.4-10.4); Monocytes # (auto) 1.19 K/uL (0.11-0.59); Monocytes % (auto) 9.2 %; Platelet Count 403 K/uL (130-400); RDW Coefficient of Variation 13.2 % (11.5-14.5); Red Blood Count 4.33 M/uL (4.7-6.1)
[2021-01-04 06:55] LABS: Albumin Level 3.1 gm/dl (3.4-5.0); BUN Creatinine Ratio 17.5 (10-20); Calcium 9.3 mg/dl (8.5-10.1); Creatinine Clr Calc Pharmacy 104.9 ml/min; Est GFR (African American) 104.8; Est GFR (Non-African American) 90.4; Phosphorus 3.5 mg/dl (2.5-4.9); Potassium 4.6 mmol/L (3.5-5.1)
[2021-01-04] MEDS: dexAMETHasone 6 MG in SYRINGE 0 ML IV SCH (09:31)
[2021-01-04] MEDS: ENOXAPARIN INJ 40 MG/0.4 ML SYR SQ SCH (09:31)
[2021-01-04] MEDS: CLOPIDOGREL BISULFATE 75 MG TAB PO SCH (09:31)
[2021-01-04] MEDS: ASPIRIN 81 MG ECTAB PO SCH (09:31)
[2021-01-04] MEDS: ATORVASTATIN 40 MG TAB PO SCH (09:31)
[2021-01-04] MEDS ORDERED: STROKE PATIENT DISCHARGE PRN (09:55)
--- NOTE | 2021-01-04 10:02 | Discharge Summary ---
Date of Service January 04, 2021 Admission HPI Per Admitting Provider The patient is a 55-year-old male with a past medical history including hepatic steatosis, abnormal LFTs, ectatic aorta, multifocal pneumonia due to COVID-19 requiring hospitalization from 12/26-12/27/2020, elevated troponin due to COVID-19 myocarditis and morbid obesity. Patient presents with symptoms as noted above. In the emergency department, the patient answers either yes or no, and is aware that he is only answering in one-word answers, although he is trying hard to expand. Work-up in the emergency department included a CT scan of the head which was negative. Chest x-ray showed cardiomegaly. As noted, patient was COVID-19 positive on 12/26/2020. MRI of brain without contrast showed an acute CVA involving the cortical and subcortical white matter of the posterior right frontal lobe and to a lesser ext ent the right temporal lobe. Principal Diagnosis Right MCA stroke Discharge Exam Constitutional WD/WN, vitals as above + obese; no acute distress Neck trachea midline, no thyromegaly Respiratory normal respiratory effort, lungs clear to auscultation Cardiovascular RRR, no murmur, no edema Gastrointestinal (Abdomen) normal bowel sounds, soft, nontender, no hepatosplenomegaly Musculoskeletal no cyanosis or clubbing, extremities motor strength 5/5 Skin no rashes, warm and dry Neurologic normal touch/pain/proprioception, CN's II-XI intact bilaterally, deep tendon reflexes 2+ bilaterally, normal sensation to monofilament, moves all extremities and awake; no focal motor deficits Speech / Cognition: + expressive aphasia (speaking better, understands all directions) Motor/Sensory: no tremor and no pronator drift Psychiatric A+Ox3, euthymic affect Lymphatic no cervical or axillary lymphadenopathy Discharge Data Allergies Allergy/AdvReac Type Severity Reaction Status Date / Time No Known Allergies Allergy Verified 01/02/21 23:11 Consultations 01/03/21 00:26 ED Decision to Admit Stat 01/03/21 03:41 Consult Case Management - Discharge Planning Routine Consult Case Management - Discharge Planning Routine Consult Neurology Routine Ordered Studies 01/02/21 22:42 CT angio head w con Urgent CT angio neck with con Urgent CT head/brain wo con Urgent 01/03/21 00:52 MR brain wo con Urgent Hospital Course (1) Acute CVA (cerebrovascular accident): presented with acute onset aphasia, left facial droop, altered mental status MRI brain with small right MCA stroke most likely etiology is small vessel disease Dr. Clement recommends aspirin and Plavix for three weeks, then just Plavix 75mg daily will start on Lipitor 40mg daily, LDL is 178 and HDL is very low at 24 might need to titrate up to higher dose BP is elevated at times, ranging 140-170 and he has some baseline tachycardia, HR in 100s started on Toprol 25mg daily, good response, will continue on discharge HbA1c is 6.0, no need for medication, discussed weight loss and life style changes such as eating less carbs and exercise recommend getting echocardiogram as outpatient to complete work up CT of head without contrast, CTA head neck without acute findings. speech is much improved at this time, will work on home health services and telehealth visits for therapy follow up with PCP in one week follow up with neurology in 6-8 weeks (2) Aphasia: Primary symptom vastly improved at this time see above (3) Pneumonia due to 2019-nCoV: treated with dexamethasone 6 mg IV every morning while here currently not on oxygen and no respiratory distress no further dosing upon discharge (4) Myocarditis due to 2019 novel coronavirus: Troponin is normal this admission, was only minimally elevated at 0.1 prior admission typically troponin goes above 1 at least with myocarditis questionable diagnosis get echo as outpatient (5) Ectatic aorta: Noted during last admission, with plan for follow-up echocardiogram in the outpatient setting Total Time Total Time Spent Total Time Spent (In Minutes): 35 minutes Total Time Includes: Examination of the Patient, Discharge Planning, Medication Reconciliation and Communication With Other Providers (neurology, speech therapy) Discharge Plan Discharge Items Patient Disposition: Home - Home Health Services Reason For Visit: stroke-like symptoms Discharge Diagnosis: Right middle cerebral artery stroke Expressive aphasia Dyslipidemia Condition on Discharge: Good Goals: take medications as prescribed follow up with neurology Activity: Resume your previous activity Non-emergency contact: Primary Care Provider Call non-emergency contact if: you have any medication questions Follow-up/Referrals: Chun Clement MD [Physician] - (6-8 weeks) Zion Mena III, MD [Primary Care Provider] - (one week) Diet: Heart Healthy Addtl Attending Provider Instructions: Medications: - ASPIRIN: take 81mg daily for THREE WEEKS then stop taking - PLAVIX: take 75mg daily, continue to take this indefinitely, never stop unless instructed to do so by physician - LIPITOR: take 40mg daily to help improve cholesterol, common side effect to watch for is muscle aches/pains - TOPROL: take 25mg every morning for blood pressure control Right middle cerebral artery stroke, most likely small vessel etiology due to high blood pressure and dyslipidemia (uncontrolled cholesterol) Dr. Clement recommends the following to reduce the risk of future strokes... - take aspirin 81mg daily and Plavix 75mg daily together for three weeks, then stop the aspirin and only take Plavix - take Lipitor 40mg daily to stabilize plaques, lower LDL and raise HDL - take Toprol 25mg daily to control blood pressure your hemoglobain A1c was 6.0% which is considered PRE-DIABETES no medication is recommended at this time recommend that you cut back on complex carbohydrates (breads, pastas, rice) and significantly reduce sweets work on losing 10-15% body weight as an initial goal, this would equal 25-35 lbs this can be done simply by eating less and getting exercise 5 times a week, walk 30 minutes by making lifestyle changes now you can reduce the risk of developing diabetes in the future also, this would reduce your risk of future strokes expressive aphasia (difficulty speaking) case management will work on setting up home health services for speech therapy will likely be telehealth until you are COVID negative swallowing: safe to eat regular consistency foods speech therapy recommends sitting fully upright, alternate solids and liquids, small bites/sips, eat slowly it is possible that the stroke weakend muscles that help you swallow, these techniques are intended to prevent aspiration Risk Factors for Stroke: You can reduce your chances of stroke by working with your medical provider to adopt a healthy lifestyle. Some specific ways to lower your chance of stroke are: * If you are a smoker, now is the time to stop smoking cigarettes * If you are diabetic, improve the control of your blood sugars * Avoid excessive amounts of alcohol * Control high blood pressure * Lose weight if you are overweight * Be sure to lead an active lifestyle * Eat a healthy diet low in salt, cholesterol and fat You should know about other risk factors for stroke that you are unable to control. These include: * Age 55 years or older * Male gender * Certain racial groups: , or / * Family History of Stroke, Mini stroke or Heart Attack * Sickle Cell Disease Follow Up: It is important for you to keep your follow up appointments with your medical provider. Who to Call and When: Medical Emergencies: Call 911 immediately if you experience any of the following warning signs and symptoms of Stroke: * Sudden numbness or weakness of the face, arm or leg, especially on one side of the body * Sudden confusion, trouble speaking or understanding * Sudden trouble seeing in one or both eyes * Sudden trouble walking, dizziness, loss of balance or coordination * Sudden severe headache with no cause Do not delay calling 911 if you experience any warning signs or symptoms of a stroke. Delay in seeking medical attention may affect what treatments can be given to you. . Pending Studies at Discharge: No Stand-Alone Forms: Medications to Prevent Stroke, [facility], Smoking Cessation Medications and DC Order Prescriptions: New atorvastatin 40 mg Tablet 40 mg PO QAM 3 Days Qty: 3 RF: 3 clopidogrel 75 mg Tablet 75 mg PO QAM 30 Days Qty: 30 RF: 3 metoprolol succinate 25 mg Tablet Extended Release 24 Hr 25 mg PO QAM 30 Days Qty: 30 RF: 3 Continued aspirin 81 mg tablet,delayed release (DR/EC) 81 mg PO DAILY Qty: 30 RF: 0 acetaminophen [Tylenol] 325 mg tablet 325 mg PO Q6H PRN (Reason: fever or pain) Qty: 30 RF: 0 Discharge Orders: Discharge Order (Routine); Ordered 01/04/21 Ordered By: Kendall Adame/Other Patient Handouts: Prediabetes, 5 Steps for Eating Healthier, A1C Admission Data Admit Date/Time: 01/03/21 01:45 Attending Provider: Kendall Covington Admit Provider: Peterson Smith Primary Care Provider: Zion Mena III Other Providers: Peterson Smith ; Jon Le Coding Level of Care Code D/C Day Management >30 mins Diagnoses Acute CVA (cerebrovascular accident) I63.9 Aphasia R47.01 Pneumonia due to 2019-nCoV U07.1; J12.82 Myocarditis due to 2019 novel coronavirus U07.1; I40.0 Ectatic aorta I77.819
--- NOTE | 2021-01-04 10:14 | Pharmacy Report ---
Pharmacist Stroke Counseling - Date of Service January 04, 2021 - Scope: Pharmacy has been consulted to provide medication discharge counseling for this patient admitted with ischemic stroke as per the Pharmacist Discharge Counseling for Stroke Patients Protocol. - Medications on Discharge: New Rx's Medication Instructions Recorded acetaminophen [Tylenol] 325 mg PO Q6H PRN #30 tab 12/27/20 aspirin 81 mg PO DAILY #30 tab 12/27/20 atorvastatin 40 mg PO QAM 3 Days #3 tab 01/04/21 clopidogrel 75 mg PO QAM 30 Days #30 tab 01/04/21 metoprolol succinate 25 mg PO QAM 30 Days #30 tab 01/04/21 - Action: The above medications, specifically ones for stroke treatment/prophylaxis, have been reviewed in detail with the patient and/or patient merchandiser retail representative(s) prior to discharge. This includes indication, common adverse reactions, drug interactions, and medication administration. Medication counseling has been employed using the teach-back method to ensure understanding. - Outcome: The patient and/or patient merchandiser retail representative(s) have demonstrated understanding of the medications. Additional comments: * Patient expressed understanding of indication and how to take medications for prevention of stroke (specifically atorvastatin, aspirin, and plavix) * I reinforced that he will take ASA + plavix for three weeks, then STOP ASA and continue plavix care home * Reviewed s/s of bleeding and stressed the importance of notifying providers that he takes ASA and plavix if he were to have a dental or medical procedure planned * He denied any questions Thank you for allowing pharmacy to be involved in the care of this patient. Please call [phone] with any additional questions
== END 2021-01-04 10:50 | disposition home health service (06) ==
LOC: ED 22:35 → 2S 22:35 → SUATTDRO 01-03 01:45 → 2S 01-03 02:07

== ENCOUNTER 2024-11-25 11:19 | Inpatient (IN) ==
[2024-11-25 12:16] LABS: Hematocrit (blood only) 44.5 % (42.0-52.0); Hemoglobin 15.2 g/dl (14.0-18.0); Mean Corpuscular Hemoglobin 33.3 pg (25.0-34.0); Mean Corpuscular Hgb Conc 34.2 g/dL (32.0-36.0); Mean Corpuscular Volume 97.6 fL (80.0-100.0); Mean Platelet Volume 9.7 fL (9.4-12.4); Platelet Count 175 K/uL (130-400); RDW Standard Deviation 50.3 fL (36.4-46.3); Red Blood Count 4.56 M/uL (4.70-6.10); White Blood Count 15.64 K/ul (4.8-10.8)
[2024-11-25] MEDS: SODIUM CHLORIDE 0.9% 1,000 ML IV ONE ×2 (12:22→15:17)
[2024-11-25 12:35] LABS: Albumin Globulin Ratio 1.3 (0.9-2); Albumin Level 4.4 gm/dl (3.4-5.0); BUN Creatinine Ratio 13.5 (10-20); Basophils # (auto) 0.03 K/uL (0.00-0.20); Basophils % (auto) 0.2 %; Bilirubin,Total 1.1 mg/dl (0.2-1.0); Calcium 10.3 mg/dl (8.6-10.3); Creatinine Clr Calc Pharmacy 94.6 ml/min; Globulin 3.4 gm/dl (2.5-4.0); Immature Granulocytes # (auto) 0.06 K/uL (0.01-0.20); Immature Granulocytes % (auto) 0.4 %; Lymphocytes # (auto) 0.57 K/uL (1.20-3.40); Lymphocytes % (auto) 3.6 %; Magnesium 1.9 mg/dl (1.7-2.4); Monocytes # (auto) 0.59 K/uL (0.11-0.59); Monocytes % (auto) 3.8 %; Neutrophils # (auto) 14.39 K/uL (1.40-6.50); Potassium 4.1 mmol/L (3.5-5.1); Total Protein 7.8 gm/dl (6.0-8.3)
--- NOTE | 2024-11-25 12:40 | Emergency Department Note ---
Impression & Plan Cellulitis of right leg, Sepsis, Elevated procalcitonin, Leukocytosis ED Provider Note HISTORY OF PRESENT ILLNESS: Patient is a 59-year-old male presenting with right lower leg pain and swelling. Patient reports that last night he started noticing some redness and swelling to his right anterior singh. He states that the redness and swelling has seemed to progress outward from his mid tibia and progressed up his leg. He states he had some subjective fevers and chills last night. Denies any chest pain or shortness of breath. Denies any nausea or vomiting. He denies any injury to the leg or any known wounds or scratches. He denies any recent antibiotic or steroid use. He denies any numbness or tingling down his leg. Denies any DVT or PE history. He is on a baby aspirin daily. Patient is not diabetic. Tetanus is up-to-date (2016). ROS: as above PHYSICAL EXAM: Constitutional: Patient appears in no acute distress. HENT: Head: Normocephalic and atraumatic. Eyes: EOMI, PERRL Mouth/Throat: Mucous membranes moist. Neck: Trachea midline. Neck supple. Cardiovascular: Tachycardic with regular rhythm. No murmurs, rubs or gallops. Intact distal pulses. Pulmonary/Chest: No respiratory distress. Breath sounds clear and equal bilaterally. No wheezes or rales. Abdominal: Abdomen soft, no tenderness, rebound or guarding. Musculoskeletal: - RLE: Erythema and swelling to anterior mid tibia. Area is warm to touch. No palpable crepitus. Intact DP and PT pulses. Able to dorsiflex and plantarflex the ankle. Able to wiggle toes. Able to flex and extend at the knee. No overlying erythema to the joints. No open wounds or abrasions to the anterior singh. Skin: Warm and dry. No rash, erythema, pallor or cyanosis Psychiatric: Appropriate mood and affect for situation. Neurological: Alert and keenly responsive. CN II-XII grossly intact, moving all extremities equally and fully. MDM: - Vitals signs showed tachycardia - History obtained via patient. History as above. - Chronic conditions affecting care: HTN; cardiomyopathy; HLD; CVA - Differential diagnoses include, but are not limited to: DVT; cellulitis; necrotizing fasciitis; contusion - Order placed for continuous cardiac monitoring. At this time, monitor showed rate of 110 bpm with normal sinus rhythm, per my interpretation. - External medical records reviewed. Primary care visit note dated 09/04/2024 was reviewed. Patient was seen for routine visit to his PCP. He follows in their clinic for his cardiomyopathy and has been on Jardiance. - EKG interpreted by myself showed normal sinus rhythm. Rate tachycardic at 100 bpm. QT 356. No acute ischemic changes. - Laboratory workup interpreted by myself showed leukocytosis (WBC 15.64) with neutrophil predominance; normal INR; stable electrolytes; slightly elevated troponin (21.9); normal lactate; elevated procalcitonin (0.99) - Blood cultures obtained - Repeat troponin trended down - Xray right tib-fib negative for free air, per my interpretation. - Considered necrotizing fasciitis, but patient has no significant pain out of proportion to examination, no palpable crepitus and no free air on x-ray imaging. CRP added to workup to calculate LRINEC score - US RLE negative for DVT - Patient given dose of daptomycin for antibiotic coverage. - Given 1L NS in ER. Patient sepsis fluid volume calculation based on ideal body weight is 2018.10 mL. A second 1L NS ordered. Patient's heart rate did improve with IV fluid resuscitation. - Based on patient's tachycardia, leukocytosis and cellulitis, he meets sepsis criteria. - Discussion was had with case aide about patient's case and need for admission - Hospitalist, Dr. Gerber, consulted for admission - Patient admitted to [facility] for further evaluation and management. ASSESSMENT AND PLAN: Diagnosis: Right lower extremity cellulitis; sepsis; elevated procalcitonin; leukocytosis Plan: admit Past Med/Surg History Problem List (Updated 11/25/24 @ 15:11 by Adelina Glass MD) Leukocytosis (Acute) Elevated procalcitonin (Acute) Sepsis (Acute) Cellulitis of right leg (Acute) Hyperhidrosis Impaired fasting glucose Severe obesity (BMI 35.0-39.9) with comorbidity Colon cancer screening Hepatic steatosis Coronary artery calcification Prediabetes pt denies Cardiomyopathy Left ventricular thrombus Nocturnal hypoxemia Hypertension Moderate obstructive sleep apnea (Chronic) occasional cpap usage History of CVA (cerebrovascular accident) January 2021, s/p covid-19 virus. small vessel stroke. did receive speech therapy for several months, mild memory loss currently. otherwise doing well. Hyperlipidemia Medical History (Updated 11/25/24 @ 15:11 by Adelina Glass MD) LV (left ventricular) mural thrombus related to covid January 2021, follows with Dr Farley. 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 treated at [facility]. 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 no current problems. Surgical History History of colonoscopy History of tonsillectomy H/O right knee surgery Family History (Updated 09/04/24 @ 15:32 by Kate Avila) Mother No problems noted. Father No problems noted. Other No family history of adverse response to anesthesia Denies family history of Ovarian cancer Prostate cancer Heart disease Breast cancer Colorectal cancer Social History (Updated 09/04/24 @ 15:32 by Kate Avila) Smoking Status: Never smoker Second Hand Exposure: No; Do You Dip or Chew Tobacco: No (in the past); Hx Alcohol Use: Yes Alcohol type: beer Alcohol Intake Frequency Comment: about 3 per week Hx Substance Use: No Preferred Language: Malay Communication Ability: Effective Communication Ability Comment: expressive aphasia Risk Lead Required: No Beliefs That Will Affect Care: None Current Living Situation: Significant Other current occupational status: employed 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 Feels Safe at Home: Yes Assistive Devices: CPAP Allergies Allergies Allergy/AdvReac Type Severity Reaction Status Date / Time No Known Allergies Allergy Verified 11/25/24 15:03 Home Meds Home Medications Medication Instructions Recorded Confirmed aspirin 81 mg tablet,delayed 81 mg PO QAM 02/24/21 11/25/24 release (Adult Aspirin Regimen) Previous Rx's Medication Instructions Recorded metoprolol succinate 50 mg 50 mg PO QAM #90 tabs 01/13/24 tablet,extended release 24 hr lisinopril 20 mg tablet 20 mg PO QAM #90 tabs 02/25/24 empagliflozin 10 mg tablet 10 mg PO DAILY #90 tabs 03/09/24 (Jardiance) atorvastatin 80 mg tablet 80 mg PO QAM #90 tabs 08/24/24 Results & Data (ED) Vital Signs Vital Signs - 24 hr 11/25/24 11:25 11/25/24 12:08 11/25/24 12:08 Temperature 37.4 C Temperature Source Oral Pulse Rate 119 H Pulse Rate [Left Finger] 104 H Respiratory Rate 18 18 Respiratory Effort / Characteristics Non-Labored Spontaneous Non-Labored Spontaneous Respiratory Depth Normal Respiratory Pattern Regular Blood Pressure 130/79 Blood Pressure [Left Arm] 128/98 Blood Pressure Mean 96 Blood Pressure Mean [Left Arm] 108 Blood Pressure Position [Left Arm] Lying Pulse Oximetry 94 94 94 Oxygen Delivery Method Room Air Room Air Room Air Sepsis Recent Fever Within 48 Hours Yes Sepsis New/Unexplained Change in Mental Status No Sepsis Action Taken by Nursing No Action Required 11/25/24 12:08 11/25/24 14:20 Temperature Temperature Source Pulse Rate 104 H Pulse Rate [Left Finger] 90 Respiratory Rate 18 18 Respiratory Effort / Characteristics Non-Labored Spontaneous Respiratory Depth Respiratory Pattern Blood Pressure Blood Pressure [Left Arm] 132/80 Blood Pressure Mean Blood Pressure Mean [Left Arm] 97 Blood Pressure Position [Left Arm] Lying Pulse Oximetry 94 96 Oxygen Delivery Method Room Air Room Air Sepsis Recent Fever Within 48 Hours Sepsis New/Unexplained Change in Mental Status Sepsis Action Taken by Nursing Laboratory Data 11/25/24 12:01 11/25/24 12:01 Lab Results 11/25/24 11/25/24 11/25/24 Range/Units 11:58 12:00 12:01 WBC 15.64 H (4.8-10.8) K/ul RBC 4.56 L (4.70-6.10) M/uL Hgb 15.2 (14.0-18.0) g/dl Hct 44.5 (42.0-52.0) % MCV 97.6 (80.0-100.0) fL MCH 33.3 (25.0-34.0) pg MCHC 34.2 (32.0-36.0) g/dL RDW Std Deviation 50.3 H (36.4-46.3) fL RDW Coeff of Brannon 14.0 (11.5-14.5) % Plt Count 175 (130-400) K/uL MPV 9.7 (9.4-12.4) fL Immature Gran % (Auto) 0.4 % Neut % (Auto) 92.0 % Lymph % (Auto) 3.6 % [place] % (Auto) 3.8 % Eos % (Auto) 0.0 % Baso % (Auto) 0.2 % Neut # (Auto) 14.39 H (1.40-6.50) K/uL Lymph # (Auto) 0.57 L (1.20-3.40) K/uL [place] # (Auto) 0.59 (0.11-0.59) K/uL Eos # (Auto) 0.00 (0.00-0.50) K/uL Baso # (Auto) 0.03 (0.00-0.20) K/uL Immature Gran # (Auto) 0.06 (0.01-0.20) K/uL PT 12.1 H (9.0-12.0) Seconds INR 1.1 (0.9-1.1) APTT 27 (21-31) Seconds PTT Ratio 1.0 Sodium 136 (136-145) mmol/L Potassium 4.1 (3.5-5.1) mmol/L Chloride 100 (98-107) mmol/L Carbon Dioxide 29 (21-32) mmol/L Anion Gap 7 (3-11) BUN 13 (6-23) mg/dl Creatinine 0.96 (0.6-1.4) mg/dl Est Cr Clr Drug Dosing 94.6 ml/min eGFR 91.62 BUN/Creatinine Ratio 13.5 (10-20) Glucose 88 (70-99(Fasting)) mg/dl Lactate 1.0 (0.4-2.0) mmol/L Calcium 10.3 (8.6-10.3) mg/dl Magnesium 1.9 (1.7-2.4) mg/dl Total Bilirubin 1.1 H (0.2-1.0) mg/dl AST 22 (13-39) U/L ALT 24 (7-52) U/L Alkaline Phosphatase 72 (34-104) U/L Troponin I High Sens 21.9 H (0-20) pg/ml Total Protein 7.8 (6.0-8.3) gm/dl Albumin 4.4 (3.4-5.0) gm/dl Globulin 3.4 (2.5-4.0) gm/dl Albumin/Globulin Ratio 1.3 (0.9-2) Procalcitonin 0.99 H (0-0.5) ng/ml Urine Color Urine Appearance (Clear) Urine pH (4.5-7.5) Ur Specific [place] (1.000-1.030) Urine Protein (Negative) Urine Glucose (UA) (Negative) Urine Ketones (Negative) Urine Blood (Negative) Urine Nitrite (Negative) Urine Bilirubin (Negative) Urine Urobilinogen (Negative) Ur Leukocyte Esterase (Negative) Urine WBC (Auto) (0-5) /hpf Urine RBC (Auto) (0-2) /hpf U Hyaline Cast (Auto) (0-2) /lpf U Epithel Cells (Auto) (0-2) /hpf Urine Bacteria (Auto) (None Seen) Adenovirus (PCR) Not Detected (NotDetected) B. pertussis DNA (PCR) Not Detected (NotDetected) B.parapertussis DNA PCR Not Detected (NotDetected) C. pneumoniae DNA (PCR) Not Detected (NotDetected) Coronavirus OC43 (PCR) Not Detected (NotDetected) Coronavirus HKU1 (PCR) Not Detected (NotDetected) Coronavirus 229E (PCR) Not Detected (NotDetected) SARS-CoV-2 (PCR) Not Detected (NotDetected) Coronavirus NL63 (PCR) Not Detected (NotDetected) Human Metapneumovir PCR Not Detected (NotDetected) Influenza Type A (PCR) Not Detected (NotDetected) Influenza Type B (PCR) Not Detected (NotDetected) M. pneumoniae (PCR) Not Detected (NotDetected) Parainfluenza 1 (PCR) Not Detected (NotDetected) Parainfluenza 2 (PCR) Not Detected (NotDetected) Parainfluenza 3 (PCR) Not Detected (NotDetected) Parainfluenza 4 (PCR) Not Detected (NotDetected) RSV (PCR) Not Detected (NotDetected) Entero/Rhino (PCR) Not Detected (NotDetected) 11/25/24 11/25/24 Range/Units 12:22 13:46 WBC (4.8-10.8) K/ul RBC (4.70-6.10) M/uL Hgb (14.0-18.0) g/dl Hct (42.0-52.0) % MCV (80.0-100.0) fL MCH (25.0-34.0) pg MCHC (32.0-36.0) g/dL RDW Std Deviation (36.4-46.3) fL RDW Coeff of Brannon (11.5-14.5) % Plt Count (130-400) K/uL MPV (9.4-12.4) fL Immature Gran % (Auto) % Neut % (Auto) % Lymph % (Auto) % [place] % (Auto) % Eos % (Auto) % Baso % (Auto) % Neut # (Auto) (1.40-6.50) K/uL Lymph # (Auto) (1.20-3.40) K/uL [place] # (Auto) (0.11-0.59) K/uL Eos # (Auto) (0.00-0.50) K/uL Baso # (Auto) (0.00-0.20) K/uL Immature Gran # (Auto) (0.01-0.20) K/uL PT (9.0-12.0) Seconds INR (0.9-1.1) APTT (21-31) Seconds PTT Ratio Sodium (136-145) mmol/L Potassium (3.5-5.1) mmol/L Chloride (98-107) mmol/L Carbon Dioxide (21-32) mmol/L Anion Gap (3-11) BUN (6-23) mg/dl Creatinine (0.6-1.4) mg/dl Est Cr Clr Drug Dosing ml/min eGFR BUN/Creatinine Ratio (10-20) Glucose (70-99(Fasting)) mg/dl Lactate (0.4-2.0) mmol/L Calcium (8.6-10.3) mg/dl Magnesium (1.7-2.4) mg/dl Total Bilirubin (0.2-1.0) mg/dl AST (13-39) U/L ALT (7-52) U/L Alkaline Phosphatase (34-104) U/L Troponin I High Sens 19.3 (0-20) pg/ml Total Protein (6.0-8.3) gm/dl Albumin (3.4-5.0) gm/dl Globulin (2.5-4.0) gm/dl Albumin/Globulin Ratio (0.9-2) Procalcitonin (0-0.5) ng/ml Urine Color Yellow Urine Appearance Clear (Clear) Urine pH 8.0 H (4.5-7.5) Ur Specific [place] 1.031 H (1.000-1.030) Urine Protein 1+ H (Negative) Urine Glucose (UA) 2+ H (Negative) Urine Ketones 2+ H (Negative) Urine Blood Negative (Negative) Urine Nitrite Negative (Negative) Urine Bilirubin Negative (Negative) Urine Urobilinogen Negative (Negative) Ur Leukocyte Esterase Negative (Negative) Urine WBC (Auto) 0-5 (0-5) /hpf Urine RBC (Auto) 0-2 (0-2) /hpf U Hyaline Cast (Auto) 0-2 (0-2) /lpf U Epithel Cells (Auto) 0-2 (0-2) /hpf Urine Bacteria (Auto) None Seen (None Seen) Adenovirus (PCR) (NotDetected) B. pertussis DNA (PCR) (NotDetected) B.parapertussis DNA PCR (NotDetected) C. pneumoniae DNA (PCR) (NotDetected) Coronavirus OC43 (PCR) (NotDetected) Coronavirus HKU1 (PCR) (NotDetected) Coronavirus 229E (PCR) (NotDetected) SARS-CoV-2 (PCR) (NotDetected) Coronavirus NL63 (PCR) (NotDetected) Human Metapneumovir PCR (NotDetected) Influenza Type A (PCR) (NotDetected) Influenza Type B (PCR) (NotDetected) M. pneumoniae (PCR) (NotDetected) Parainfluenza 1 (PCR) (NotDetected) Parainfluenza 2 (PCR) (NotDetected) Parainfluenza 3 (PCR) (NotDetected) Parainfluenza 4 (PCR) (NotDetected) RSV (PCR) (NotDetected) Entero/Rhino (PCR) (NotDetected) Administered Medications Daptomycin 325 mg/ Syringe 6.5 mls @ 3.25 mls/min IV Q24H JOHN; Protocol Stop: 12/02/24 12:59 Last Admin: 11/25/24 13:42 Dose: 3.25 mls/min Documented By: JYOTHI Discontinued Medications Sodium Chloride (Nss) 1,000 mls @ 999 mls/hr IV .[id number] ONE Stop: 11/25/24 12:30 Last Infusion: 11/25/24 13:42 Dose: Infused Documented By: Admin: 11/25/24 12:22 Dose: 999 mls/hr Documented By: JYOTHI Imaging Data Radiologist's Impression: Tibia/Fibula X-Ray 11/25/24 11:46 EXAM: Radiographs of the Right Tibia and Fibula 2 Views INDICATION: Singh pain and swelling. TECHNIQUE: Frontal and lateral views of the right tibia and fibula. COMPARISON: No relevant prior studies available. FINDINGS: Bones/joints: No fracture, erosion or dislocation. Soft tissues: Mild diffuse anterior soft tissue swelling. No gas collection or radiopaque foreign body. Dense atherosclerosis of the calf arteries noted. IMPRESSION: Soft tissue swelling. No fracture. ACT 112: Negative or not required by law. Electronically signed by Johanne Cunningham 11-25-2024 12:50 PM Venous Doppler Study 11/25/24 11:46 EXAM: US Duplex Right Lower Extremity Veins INDICATION: Pain. TECHNIQUE: Real-time duplex ultrasound scan of the right lower extremity veins integrating B-mode two-dimensional vascular structure, Doppler spectral analysis, color flow Doppler imaging and compression. COMPARISON: No relevant prior studies available. FINDINGS: Deep veins: No DVT in the visualized common femoral, femoral or popliteal veins. The veins demonstrate normal color flow, are normally compressible, with normal phasic flow and/or augmentation response. Superficial veins: No abnormality noted. No thrombus in the visualized great saphenous vein. Soft tissues: No abnormality noted. IMPRESSION: No deep venous thrombosis of the right lower extremity. ACT 112: Negative or not required by law. Electronically signed by Johanne Cunningham 11-25-2024 2:23 PM Discharge Plan Visit Data Chief Complaint: Infection Stated Complaint: RT LEG/FOOT EDEMA/RED/HOT, CHILLS/SWEATS, FLU LIKE ED Provider: Adelina Glass Discharge Problem: Cellulitis of right leg, Sepsis, Elevated procalcitonin, Leukocytosis Forms Stand Alone Forms: [facility] [employer] Prescriptions Prescriptions: No Action metoprolol succinate 50 mg tablet extended release 24 hr 50 mg PO QAM Qty: 90 3RF Jardiance 10 mg tablet 10 mg PO DAILY Qty: 90 3RF atorvastatin 80 mg tablet 80 mg PO QAM Qty: 90 3RF aspirin [Adult Aspirin Regimen] 81 mg tablet,delayed release (DR/EC) 81 mg PO QAM lisinopril 20 mg tablet 20 mg PO QAM Qty: 90 3RF Referrals Referrals: Kailash Arguello DO [Primary Care Provider] -
[2024-11-25 12:42] LABS: Troponin I High Sensitivity 21.9 pg/ml (0-20)
--- NOTE | 2024-11-25 12:50 | XRay Report ---
EXAM: Radiographs of the Right Tibia and Fibula 2 Views INDICATION: Singh pain and swelling. TECHNIQUE: Frontal and lateral views of the right tibia and fibula. COMPARISON: No relevant prior studies available. FINDINGS: Bones/joints: No fracture, erosion or dislocation. Soft tissues: Mild diffuse anterior soft tissue swelling. No gas collection or radiopaque foreign body. Dense atherosclerosis of the calf arteries noted. IMPRESSION: Soft tissue swelling. No fracture. ACT 112: Negative or not required by law. Electronically signed by Johanne Cunningham 11-25-2024 12:50 PM
[2024-11-25 12:55] LABS: INR 1.1 (0.9-1.1); Partial Thromboplastin Time 27 Seconds (21-31); Prothrombin Time 12.1 Seconds (9.0-12.0)
[2024-11-25 13:12] LABS: Adenovirus PCR Not Detected (NotDetected); Bordetella parapertussis PCR Not Detected (NotDetected); Bordetella pertussis PCR Not Detected (NotDetected); Chlamydia pneumoniae PCR Not Detected (NotDetected); Coronavirus 229E PCR Not Detected (NotDetected); Coronavirus CoV-2 (COVID19)PCR Not Detected (NotDetected); Coronavirus HKU1 PCR Not Detected (NotDetected); Coronavirus NL63 PCR Not Detected (NotDetected); Coronavirus OC43PCR Not Detected (NotDetected); Human Metapneumovirus PCR Not Detected (NotDetected); Influenza A PCR Not Detected (NotDetected); Influenza B PCR Not Detected (NotDetected); Mycoplasma pneumoniae PCR Not Detected (NotDetected); Parainfluenza Virus 1 PCR Not Detected (NotDetected); Parainfluenza Virus 2 PCR Not Detected (NotDetected); Parainfluenza Virus 3 PCR Not Detected (NotDetected); Parainfluenza Virus 4 PCR Not Detected (NotDetected); Respiratory Syncytial VirusPCR Not Detected (NotDetected); Rhinovirus/Enterovirus PCR Not Detected (NotDetected)
[2024-11-25 13:39] LABS: Appearance Urine Clear (Clear); Bacteria Urine Automated None Seen (None Seen); Bilirubin Urine Negative (Negative); Blood Urine Negative (Negative); Cast Urine Automated 0-2 /lpf (0-2); Color Urine Yellow; Epithelial Cell Urine Auto 0-2 /hpf (0-2); Glucose Urine UA 2+ (Negative); Ketones Urine 2+ (Negative); Leukocyte Esterase Urine Negative (Negative); Nitrite Urine Negative (Negative); Protein Urine 1+ (Negative); RBC Urine Automated 0-2 /hpf (0-2); Specific Gravity Urine 1.031 (1.000-1.030); Urobilinogen Urine Negative (Negative); WBC Urine Automated 0-5 /hpf (0-5)
[2024-11-25] MEDS: DAPTOmycin 325 MG in SYRINGE 0 ML IV SCH (13:42)
--- NOTE | 2024-11-25 14:23 | Ultrasound Report ---
EXAM: US Duplex Right Lower Extremity Veins INDICATION: Pain. TECHNIQUE: Real-time duplex ultrasound scan of the right lower extremity veins integrating B-mode two-dimensional vascular structure, Doppler spectral analysis, color flow Doppler imaging and compression. COMPARISON: No relevant prior studies available. FINDINGS: Deep veins: No DVT in the visualized common femoral, femoral or popliteal veins. The veins demonstrate normal color flow, are normally compressible, with normal phasic flow and/or augmentation response. Superficial veins: No abnormality noted. No thrombus in the visualized great saphenous vein. Soft tissues: No abnormality noted. IMPRESSION: No deep venous thrombosis of the right lower extremity. ACT 112: Negative or not required by law. Electronically signed by Johanne Cunningham 11-25-2024 2:23 PM
[2024-11-25 14:25] LABS: Troponin I High Sensitivity 19.3 pg/ml (0-20)
--- NOTE | 2024-11-25 15:21 | History & Physical Report ---
Date of Service November 25, 2024 Assessment & Plan (1) Sepsis: Plan: 59-year-old male presenting for approximate 1 day of RLE erythema and edema. No known tick bites or insect bites. No drainage. Ultrasound RLE without evidence of DVT. Patient eats sepsis criteria on admission, vital signs improved with IVF and dose of ABX. Discontinue daptomycin and continue management with cefazolin for cellulitic infection. #Sepsis/Cellulitis Likely source RLE cellulitis, w/o sings of EOD; Sepsis criteria met upon initial arrival to ED; evaluation by hospiatlist team w/ hemodynamic stability - Admit - SIRS: HR 119 ; WBC > 15k (admission) - Currently hemodynamically stable - BP 132/80, MAP 97 - CBC WBC 15.64, neutrophil predominance (14.39), RBC 4.65 - CMP WNL exception of total bilirubin 1.1 - Lactate 1.0, Mg 1.9, Ca 10.4; Procal 0.99, CRP 21.47 - PT/INR 12.1/1.1 - Pending blood cultures - US RLE w/o evidence of DVT - XR T/F R w/ soft tissue swelling, no fracture - IBW goal fluids 2018 cc; receiving - Stop daptomycin, no clear evidence that MRSA is causative factor at this time; Start Cefazolin 2g q8hr #ETOH Abuse Typically drinks 3-4 beers per night; last drink 1400 on 11/24; No reported h/o WD and no current symptoms - AWSS - Thiamine 10mg qAM + folic acid 1mg qAM - Lorazepam prn - Continue to monitor #Cardiomyopathy (nonischemic)/HTN/HLD/History of atrial thrombus Follows with swabber, last visit 02/25/2024; W/o chest pain, SOB, palpitations - Jardiance, atorvastatin; ASA 81 mg daily for prior CVA - hold atorvastatin - No further anticoagulation - HTN- metoprolol, lisinopril Chronic conditions: RENA- CPAP previously, no current use Dispo: Admit Diet: Heart healthy VTE Prophylaxis: Lovenox Code: Full This document was dictated utilizing [employer]. Please excuse any grammatical errors that may be secondary to use of this software. (2) Cellulitis of right leg: (3) Cardiomyopathy: (4) Alcohol use disorder: Admission and Anticipated Discharge Date Admission Date: 11/25/2024 History of Present Illness Chief Complaint: RLE edema and erythema Primary Care Provider: Kailash Arguello DO 59-year-old male presenting to ED for right lower extremity swelling, tenderness, and erythema starting the night prior to arrival. ED course: CBC WBC 15.64, RBC 4.56, RDW 50.3, neutrophils 14.39, lymphs 0.57; PT 12.1; CMP total bilirubin 1.1; troponin 21.9, repeat 19.3; procalcitonin 0.99; UA negative for infection, presence of protein, glucose, ketones; BioFire negative; tibia- fibula x-ray (R) soft tissue swelling, no fracture; ultrasound duplex right lower extremity veins no DVT in the right lower extremity; EKG pending.; Provided with daptomycin in ED. Is a 50 mm PMHx cardiomyopathy, HTN, RENA, HLD, prediabetes, and severe obesity presenting for RLE edema, erythema, and tenderness x 1 day. He states that he is having pain of the area especially when putting pressure on it. Does feel warm to touch, per patient. Has not had any openings around the area, or oozing. Did not recall insect or tick bite. No additional bites known. Did episode of chills last evening x 1. Overall patient denying additional symptoms of fever, chest pain, shortness of breath, abdominal pain, N/V/D/C, or sick contacts. Please see Dr. Gerber's attestation for adjustments/additions to treatment plan. Allergies Allergy/AdvReac Type Severity Reaction Status Date / Time No Known Allergies Allergy Verified 11/25/24 15:03 Home Medications Medication Instructions Recorded Confirmed Type aspirin 81 mg tablet,delayed 81 mg PO QAM 02/24/21 11/25/24 History release (Adult Aspirin Regimen) metoprolol succinate 50 mg 50 mg PO QAM #90 tabs 01/13/24 11/25/24 Rx tablet,extended release 24 hr lisinopril 20 mg tablet 20 mg PO QAM #90 tabs 02/25/24 11/25/24 Rx empagliflozin 10 mg tablet 10 mg PO DAILY #90 tabs 03/09/24 11/25/24 Rx (Jardiance) atorvastatin 80 mg tablet 80 mg PO QAM #90 tabs 08/24/24 11/25/24 Rx Past Med/Surg History Problem List (Updated 11/25/24 @ 15:32 by Francois Perez PA-C) Alcohol use disorder Leukocytosis (Acute) Elevated procalcitonin (Acute) Sepsis (Acute) Cellulitis of right leg (Acute) Hyperhidrosis Impaired fasting glucose Severe obesity (BMI 35.0-39.9) with comorbidity Colon cancer screening Hepatic steatosis Coronary artery calcification Prediabetes pt denies Cardiomyopathy Left ventricular thrombus Nocturnal hypoxemia Hypertension Moderate obstructive sleep apnea (Chronic) occasional cpap usage History of CVA (cerebrovascular accident) January 2021, s/p covid-19 virus. small vessel stroke. did receive speech therapy for several months, mild memory loss currently. otherwise doing well. Hyperlipidemia Medical History LV (left ventricular) mural thrombus related to covid January 2021, follows with Dr Farley. 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 [facility]. 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 no current problems. Surgical History History of colonoscopy History of tonsillectomy H/O right knee surgery Family History Mother No problems noted. Father No problems noted. 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: No Beliefs That Will Affect Care: None Current Living Situation: Significant Other current occupational status: employed 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 Feels Safe at Home: Yes Assistive Devices: CPAP Review of Systems 2 Review of Systems: All systems reviewed & are unremarkable except as noted in Subjective Physical Exam 2 Physical Exam: General: No acute distress Skin: Warm and dry; RLE singh w/ erythematous, warm lesions staying located to anterior aspect of extremity; Surgical marker used to identify borders; no oozing or open areas of skin Head: Normocephalic, atraumatic Eyes: PERRL, conjunctivae clear, sclera non-icteric; EOM intact ENT: External ear and ear canal without swelling; nose atraumatic; good dentition Neck: Supple, no LAD Cardio: RRR, no M/G/R, S1 and S2 normal Resp: No respiratory distress, Lungs CTA in all lobes bilaterally, no wheezes, rales, or rhonchi Abdomen: Soft, symmetric, nontender MSK: No deformities, full ROM throughout; pulses palpable and equal; no edema. Neuro: Awake, alert; CN grossly intact Psych: Appropriate mood and affect; good judgement and insight. present in room at time of visit. Results & Data Results & Data Vital Signs (Past 12 Hours) Vital Signs Temp Pulse Pulse Resp BP BP Pulse Ox 11/25/24 14:20 90 18 132/80 96 11/25/24 12:08 104 H 18 94 11/25/24 12:08 94 11/25/24 12:08 104 H 18 128/98 94 11/25/24 11:25 37.4 C 119 H 18 130/79 94 O2 Del Method 11/25/24 14:20 Room Air 11/25/24 12:08 Room Air 11/25/24 12:08 Room Air 11/25/24 12:08 Room Air 11/25/24 11:25 Room Air Laboratory Results 11/25/24 12:06 Aerobic Blood Culture - Pending Blood Anaerobic Blood Culture - Pending 11/25/24 12:01 Aerobic Blood Culture - Pending Blood Anaerobic Blood Culture - Pending 11/25/24 11/25/24 11/25/24 13:46 12:22 12:01 WBC 15.64 H RBC 4.56 L Hgb 15.2 Hct 44.5 MCV 97.6 MCH 33.3 MCHC 34.2 RDW Std Deviation 50.3 H RDW Coeff of Brannon 14.0 Plt Count 175 MPV 9.7 Immature Gran % (Auto) 0.4 Neut % (Auto) 92.0 Lymph % (Auto) 3.6 [place] % (Auto) 3.8 Eos % (Auto) 0.0 Baso % (Auto) 0.2 Neut # (Auto) 14.39 H Lymph # (Auto) 0.57 L [place] # (Auto) 0.59 Eos # (Auto) 0.00 Baso # (Auto) 0.03 Immature Gran # (Auto) 0.06 PT 12.1 H INR 1.1 APTT 27 PTT Ratio 1.0 Sodium 136 Potassium 4.1 Chloride 100 Carbon Dioxide 29 Anion Gap 7 BUN 13 Creatinine 0.96 Est Cr Clr Drug Dosing 94.6 eGFR 91.62 BUN/Creatinine Ratio 13.5 Glucose 88 Lactate Calcium 10.3 Magnesium 1.9 Total Bilirubin 1.1 H AST 22 ALT 24 Alkaline Phosphatase 72 Troponin I High Sens 19.3 21.9 H C-Reactive Protein 21.47 H Total Protein 7.8 Albumin 4.4 Globulin 3.4 Albumin/Globulin Ratio 1.3 Procalcitonin 0.99 H Urine Color Yellow Urine Appearance Clear Urine pH 8.0 H Ur Specific [place] 1.031 H Urine Protein 1+ H Urine Glucose (UA) 2+ H Urine Ketones 2+ H Urine Blood Negative Urine Nitrite Negative Urine Bilirubin Negative Urine Urobilinogen Negative Ur Leukocyte Esterase Negative Urine WBC (Auto) 0-5 Urine RBC (Auto) 0-2 U Hyaline Cast (Auto) 0-2 U Epithel Cells (Auto) 0-2 Urine Bacteria (Auto) None Seen Adenovirus (PCR) B. pertussis DNA (PCR) B.parapertussis DNA PCR C. pneumoniae DNA (PCR) Coronavirus OC43 (PCR) Coronavirus HKU1 (PCR) Coronavirus 229E (PCR) SARS-CoV-2 (PCR) Coronavirus NL63 (PCR) Human Metapneumovir PCR Influenza Type A (PCR) Influenza Type B (PCR) M. pneumoniae (PCR) Parainfluenza 1 (PCR) Parainfluenza 2 (PCR) Parainfluenza 3 (PCR) Parainfluenza 4 (PCR) RSV (PCR) Entero/Rhino (PCR) 11/25/24 11/25/24 12:00 11:58 WBC RBC Hgb Hct MCV MCH MCHC RDW Std Deviation RDW Coeff of Brannon Plt Count MPV Immature Gran % (Auto) Neut % (Auto) Lymph % (Auto) [place] % (Auto) Eos % (Auto) Baso % (Auto) Neut # (Auto) Lymph # (Auto) [place] # (Auto) Eos # (Auto) Baso # (Auto) Immature Gran # (Auto) PT INR APTT PTT Ratio Sodium Potassium Chloride Carbon Dioxide Anion Gap BUN Creatinine Est Cr Clr Drug Dosing eGFR BUN/Creatinine Ratio Glucose Lactate 1.0 Calcium Magnesium Total Bilirubin AST ALT Alkaline Phosphatase Troponin I High Sens C-Reactive Protein Total Protein Albumin Globulin Albumin/Globulin Ratio Procalcitonin Urine Color Urine Appearance Urine pH Ur Specific [place] Urine Protein Urine Glucose (UA) Urine Ketones Urine Blood Urine Nitrite Urine Bilirubin Urine Urobilinogen Ur Leukocyte Esterase Urine WBC (Auto) Urine RBC (Auto) U Hyaline Cast (Auto) U Epithel Cells (Auto) Urine Bacteria (Auto) Adenovirus (PCR) Not Detected B. pertussis DNA (PCR) Not Detected B.parapertussis DNA PCR Not Detected C. pneumoniae DNA (PCR) Not Detected Coronavirus OC43 (PCR) Not Detected Coronavirus HKU1 (PCR) Not Detected Coronavirus 229E (PCR) Not Detected SARS-CoV-2 (PCR) Not Detected Coronavirus NL63 (PCR) Not Detected Human Metapneumovir PCR Not Detected Influenza Type A (PCR) Not Detected Influenza Type B (PCR) Not Detected M. pneumoniae (PCR) Not Detected Parainfluenza 1 (PCR) Not Detected Parainfluenza 2 (PCR) Not Detected Parainfluenza 3 (PCR) Not Detected Parainfluenza 4 (PCR) Not Detected RSV (PCR) Not Detected Entero/Rhino (PCR) Not Detected Diagnostic Findings Tibia/Fibula X-Ray 11/25/24 11:46 EXAM: Radiographs of the Right Tibia and Fibula 2 Views INDICATION: Singh pain and swelling. TECHNIQUE: Frontal and lateral views of the right tibia and fibula. COMPARISON: No relevant prior studies available. FINDINGS: Bones/joints: No fracture, erosion or dislocation. Soft tissues: Mild diffuse anterior soft tissue swelling. No gas collection or radiopaque foreign body. Dense atherosclerosis of the calf arteries noted. IMPRESSION: Soft tissue swelling. No fracture. ACT 112: Negative or not required by law. Electronically signed by Johanne Cunningham 11-25-2024 12:50 PM Venous Doppler Study 11/25/24 11:46 EXAM: US Duplex Right Lower Extremity Veins INDICATION: Pain. TECHNIQUE: Real-time duplex ultrasound scan of the right lower extremity veins integrating B-mode two-dimensional vascular structure, Doppler spectral analysis, color flow Doppler imaging and compression. COMPARISON: No relevant prior studies available. FINDINGS: Deep veins: No DVT in the visualized common femoral, femoral or popliteal veins. The veins demonstrate normal color flow, are normally compressible, with normal phasic flow and/or augmentation response. Superficial veins: No abnormality noted. No thrombus in the visualized great saphenous vein. Soft tissues: No abnormality noted. IMPRESSION: No deep venous thrombosis of the right lower extremity. ACT 112: Negative or not required by law. Electronically signed by Johanne Cunningham 11-25-2024 2:23 PM Code Status & VTE Plan Code Status Full Supervising Physician Co-Signing Physician Notes Patient seen and examined, chart reviewed, case discussed with Francois Perez PA-C and I agree with the assessment and plan as above except as otherwise noted Labs and images reviewed Winston is a 59-year-old male with past medical history of severe obesity, hepatic steatosis, presumed nonischemic cardiomyopathy, hyperlipidemia, and past apical ventricular thrombus resolved no longer on anticoagulation who presented to the emergency department for right lower leg swelling, pain, redness with some fevers and chills. No preceding injury. He has a leukocytosis of 15.64. Trope was minimally elevated and normalized on recheck. Procalcitonin is mildly elevated at 0.99. Venous Dopplers do not show any DVT Tib-fib shows soft tissue swelling without evidence of fracture. Patient was recommended for admission for sepsis as he was initially tachycardic with a leukocytosis and Pro-Gustavo. He had normalization of his heart rate after 1 L of fluid, 2 L of fluid total have been ordered and are infusing to complete ideal body weight sepsis goal of 2018 cc. He is nontoxic on reassessment and cap refill is brisk. He has not been hypotensive at any point and lactate is normal. Blood cultures are pending. CRP is ordered and trending. Right lower extremity is with sharply demarcated erythema which was marked with surgical pen. This has had rapid progression in the last 24 hours. Does not appear toxic, and after 1 L of fluids no longer meets sepsis criteria. Afebrile although does report feeling feverish at home. blood cultures are pending. Clinically right lower leg is consistent with cellulitis versus erysipelas. Bright red quality with sharp demarcation and prominent tenderness is suspicious for erysipelas. Will treat and cover for strep and MSSA. Do not feel that MRSA coverage is required as he has no history of this, is a nonpurulent infection, and has no abscess. Expanded gram-negative coverage is not indicated as he is not a diabetic. Have a single elevated A1c but subsequent measurements have all been normal. He is on empagliflozin for history of nonischemic cardiomyopathy, not DM. Agree with cefazolin 2 g every 8 hours, can transition to Keflex if progressing well. Blood cultures are pending. Received daptomycin in the ER. This was discontinued, atorvastatin has been held to initial dose. Resume this on discharge or after 1-2 days History of 3-5 beer per day use. No recent ETOH free days, last drink last night. No hx tremors/withdrawal sx. placed on AWSS at risk protocol. PG Care Time/CCT Total # of Minutes Spent Total Time Spent with Patient: Total time spent is greater than 50% in coordination of care (as documented) at patient's floor/unit and/or counseling patient: Coding Level of Care Code 99766 INT INP/OBS CARE 3/75MIN Diagnoses Sepsis A41.9 Cellulitis of right leg L03.115 Cardiomyopathy I42.9 Alcohol use disorder F10.90
[2024-11-25 15:22] LABS: C Reactive Protein 21.47 mg/dl (0-0.5)
[2024-11-25] MEDS ORDERED: LORazepam 2 MG/1 ML VIAL IV PRN (15:41)
[2024-11-25] MEDS: THIAMINE HCL 100 MG TAB PO SCH (15:56)
[2024-11-25] MEDS: FOLIC ACID 1 MG TAB PO SCH (15:56)
[2024-11-25] MEDS: ENOXAPARIN INJ 40 MG/0.4 ML SYR SQ SCH (19:22)
[2024-11-25] MEDS: ceFAZolin 2000MG 2,000 MG/15 ML SYR IV SCH (19:22)
[2024-11-26] MEDS: ACETAMINOPHEN 325 MG TAB PO PRN (01:20)
[2024-11-26] MEDS: lisinopril 20 MG TAB PO SCH (08:18)
[2024-11-26] MEDS: METOPROLOL SUCC 50MG EXT REL TAB PO SCH (08:18)
[2024-11-26] MEDS: ASPIRIN 81 MG ECTAB PO SCH (08:18)
[2024-11-26] MEDS: EMPAGLIFLOZIN 10 MG TAB PO SCH (08:19)
[2024-11-26 09:49] LABS: Basophils # (auto) 0.03 K/uL (0.00-0.20); Basophils % (auto) 0.3 %; Eosinophils # (auto) 0.04 K/uL (0.00-0.50); Eosinophils % (auto) 0.3 %; Hematocrit (blood only) 41.2 % (42.0-52.0); Hemoglobin 14.2 g/dl (14.0-18.0); Immature Granulocytes # (auto) 0.04 K/uL (0.01-0.20); Immature Granulocytes % (auto) 0.3 %; Lymphocytes # (auto) 0.79 K/uL (1.20-3.40); Lymphocytes % (auto) 6.6 %; Mean Corpuscular Hemoglobin 33.8 pg (25.0-34.0); Mean Corpuscular Hgb Conc 34.5 g/dL (32.0-36.0); Mean Corpuscular Volume 98.1 fL (80.0-100.0); Mean Platelet Volume 10.1 fL (9.4-12.4); Monocytes # (auto) 0.73 K/uL (0.11-0.59); Monocytes % (auto) 6.1 %; Neutrophils # (auto) 10.31 K/uL (1.40-6.50); Neutrophils % (auto) 86.4 %; Platelet Count 155 K/uL (130-400); RDW Coefficient of Variation 14.3 % (11.5-14.5); RDW Standard Deviation 51.5 fL (36.4-46.3); White Blood Count 11.94 K/ul (4.8-10.8)
[2024-11-26 09:53] LABS: BUN Creatinine Ratio 15.7 (10-20); C Reactive Protein 28.2 mg/dl (0-0.5); Calcium 9.5 mg/dl (8.6-10.3); Creatinine Clr Calc Pharmacy 102.6 ml/min; Potassium 3.9 mmol/L (3.5-5.1)
--- NOTE | 2024-11-26 12:40 | Electrocardiogram Report ---
Test Reason : Blood Pressure : */* mmHG Vent. Rate : 100 BPM Atrial Rate : 100 BPM P-R Int : 154 ms QRS Dur : 108 ms QT Int : 356 ms P-R-T Axes : 46 -61 90 degrees QTcB Int : 459 ms Normal sinus rhythm Left anterior fascicular block Left ventricular hypertrophy with repolarization abnormality Abnormal ECG When compared with ECG of 02-Jan-2021 22:40, T wave amplitude has decreased in Inferior leads T wave inversion more evident in Lateral leads Confirmed by Ronan Falrey ([id number]) on 11/26/2024 12:40:17 PM Referred By: REFERRED SELF Confirmed By: Ronan Farley
[2024-11-26] MEDS: ALUMINUM/MAGNESIUM SUSP 30 ML UDC PO STA (17:27)
--- NOTE | 2024-11-26 21:37 | Hospitalist Progress Note ---
Date of Service November 26, 2024 Assessment & Plan (1) Sepsis: Plan: 59-year-old male presenting for approximate 1 day of RLE erythema and edema. No known tick bites or insect bites. No drainage. Ultrasound RLE without evidence of DVT. Patient eats sepsis criteria on admission, vital signs improved with IVF and dose of ABX. Discontinue daptomycin and continue management with cefazolin for cellulitic infection. #Sepsis/Cellulitis Likely source RLE cellulitis, w/o sings of EOD; Sepsis criteria met upon initial arrival to ED; evaluation by hospiatlist team w/ hemodynamic stability - Admit - SIRS: HR 119 ; WBC > 15k (admission) - Currently hemodynamically stable - BP 132/80, MAP 97 - CBC WBC 15.64, now 11. - CMP WNL exception of total bilirubin 1.1 - Lactate 1.0, Mg 1.9, Ca 10.4; Procal 0.99, CRP 21.47 - PT/INR 12.1/1.1 - Pending blood cultures - US RLE w/o evidence of DVT - XR T/F R w/ soft tissue swelling, no fracture - IBW goal fluids 2018 cc; receiving - Stop daptomycin, no clear evidence that MRSA is causative factor at this time; continue Cefazolin 2g q8hr #ETOH Abuse Typically drinks 3-4 beers per night; last drink 1400 on 11/24; No reported h/o WD and no current symptoms - AWSS - Thiamine 10mg qAM + folic acid 1mg qAM - Lorazepam prn - Continue to monitor -no signs of alcohol abuse #Cardiomyopathy (nonischemic)/HTN/HLD/History of atrial thrombus 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 No blurry vision, tinnitus, weakness. Review of Systems Review of Systems: All systems reviewed & are unremarkable except as noted in HPI & below Physical Exam Physical Exam: General: No acute distress Skin: Warm and dry; RLE flanagan w/ erythema Head: Normocephalic, atraumatic Cardio: RRR, no M/G/R, S1 and S2 normal Resp: No respiratory distress, Lungs CTA Results & Data Results & Data Vital Signs (Past 12 Hours) Vital Signs Temp Pulse Resp BP Pulse Ox O2 Del Method 11/26/24 19:56 36.8 C 88 16 118/75 97 Room Air 11/26/24 14:14 37.7 C H 93 H 20 109/69 97 Room Air PG Care Time/CCT Total # of Minutes Spent Total Time Spent with Patient: Total time spent is greater than 50% in coordination of care (as documented) at patient's floor/unit and/or counseling patient: Coding Level of Care Code 83626 SUB INP/OBS CARE 2/35MIN Diagnoses Sepsis A41.9 Cellulitis of right leg L03.115 Cardiomyopathy I42.9 Alcohol use disorder F10.90
[2024-11-27 06:47] LABS: Basophils # (auto) 0.01 K/uL (0.00-0.20); Basophils % (auto) 0.1 %; Eosinophils # (auto) 0.08 K/uL (0.00-0.50); Eosinophils % (auto) 0.8 %; Hematocrit (blood only) 39.9 % (42.0-52.0); Hemoglobin 13.8 g/dl (14.0-18.0); Immature Granulocytes # (auto) 0.03 K/uL (0.01-0.20); Immature Granulocytes % (auto) 0.3 %; Lymphocytes % (auto) 8.9 %; Mean Corpuscular Hemoglobin 33.3 pg (25.0-34.0); Mean Corpuscular Hgb Conc 34.6 g/dL (32.0-36.0); Mean Corpuscular Volume 96.4 fL (80.0-100.0); Mean Platelet Volume 9.8 fL (9.4-12.4); Monocytes # (auto) 1.01 K/uL (0.11-0.59); Neutrophils # (auto) 8.12 K/uL (1.40-6.50); Neutrophils % (auto) 79.9 %; Platelet Count 155 K/uL (130-400); RDW Coefficient of Variation 13.9 % (11.5-14.5); RDW Standard Deviation 49.7 fL (36.4-46.3); Red Blood Count 4.14 M/uL (4.70-6.10); White Blood Count 10.15 K/ul (4.8-10.8)
[2024-11-27 07:12] LABS: BUN Creatinine Ratio 18.1 (10-20); Calcium 9.5 mg/dl (8.6-10.3); Creatinine Clr Calc Pharmacy 126.8 ml/min; Potassium 3.9 mmol/L (3.5-5.1)
--- NOTE | 2024-11-28 05:55 | Hospitalist Progress Note ---
Date of Service November 27, 2024 Assessment & Plan (1) Sepsis: Plan: 59-year-old male presenting for approximate 1 day of RLE erythema and edema. No known tick bites or insect bites. No drainage. Ultrasound RLE without evidence of DVT. Patient eats sepsis criteria on admission, vital signs improved with IVF and dose of ABX. Discontinue daptomycin and continue management with cefazolin for cellulitic infection. #Sepsis/Cellulitis Likely source RLE cellulitis, w/o sings of EOD; Sepsis criteria met upon initial arrival to ED; evaluation by hospiatlist team w/ hemodynamic stability - Admit - SIRS: HR 119 ; WBC > 15k (admission); now downtrending. - Currently hemodynamically stable - BP 132/80, MAP 97 -labs and vitals responding to antibitoics however skin continues to be red. - CMP WNL exception of total bilirubin 1.1 - Lactate 1.0, Mg 1.9, Ca 10.4; Procal 0.99, CRP 21.47 - PT/INR 12.1/1.1 - Pending blood cultures - US RLE w/o evidence of DVT - XR T/F R w/ soft tissue swelling, no fracture - IBW goal fluids 2018 cc; receiving - Stop daptomycin, no clear evidence that MRSA is causative factor at this time; continue Cefazolin 2g q8hr #ETOH Abuse Typically drinks 3-4 beers per night; last drink 1400 on 11/24; No reported h/o WD and no current symptoms - AWSS - Thiamine 10mg qAM + folic acid 1mg qAM - Lorazepam prn - Continue to monitor -no signs of alcohol abuse #Cardiomyopathy (nonischemic)/HTN/HLD/History of atrial thrombus 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 States he continues to have leg pain. No longer complaining of a headache. Physical Exam Physical Exam: General: No acute distress Skin: Warm and dry; RLE flanagan w/ erythema, slightly increased from yesterday. Head: Normocephalic, atraumatic Cardio: RRR, no M/G/R, S1 and S2 normal Resp: No respiratory distress, Lungs CTA Results & Data Results & Data Vital Signs (Past 12 Hours) Vital Signs Temp Pulse Resp BP Pulse Ox O2 Del Method 11/27/24 20:36 37.0 C 104 H 18 114/74 95 Room Air PG Care Time/CCT Total # of Minutes Spent Total Time Spent with Patient: Total time spent is greater than 50% in coordination of care (as documented) at patient's floor/unit and/or counseling patient: Coding Level of Care Code 94639 SUB INP/OBS CARE 2/35MIN Diagnoses Sepsis A41.9 Cellulitis of right leg L03.115 Cardiomyopathy I42.9 Alcohol use disorder F10.90
[2024-11-28 06:16] LABS: Basophils # (auto) 0.02 K/uL (0.00-0.20); Basophils % (auto) 0.2 %; Eosinophils # (auto) 0.14 K/uL (0.00-0.50); Eosinophils % (auto) 1.7 %; Hematocrit (blood only) 40.8 % (42.0-52.0); Hemoglobin 14.2 g/dl (14.0-18.0); Immature Granulocytes # (auto) 0.03 K/uL (0.01-0.20); Immature Granulocytes % (auto) 0.4 %; Lymphocytes # (auto) 1.15 K/uL (1.20-3.40); Lymphocytes % (auto) 13.9 %; Mean Corpuscular Hemoglobin 33.1 pg (25.0-34.0); Mean Corpuscular Hgb Conc 34.8 g/dL (32.0-36.0); Mean Corpuscular Volume 95.1 fL (80.0-100.0); Mean Platelet Volume 9.8 fL (9.4-12.4); Monocytes # (auto) 1.07 K/uL (0.11-0.59); Monocytes % (auto) 12.9 %; Neutrophils # (auto) 5.88 K/uL (1.40-6.50); Neutrophils % (auto) 70.9 %; Platelet Count 192 K/uL (130-400); RDW Coefficient of Variation 13.8 % (11.5-14.5); RDW Standard Deviation 48.4 fL (36.4-46.3); Red Blood Count 4.29 M/uL (4.70-6.10); White Blood Count 8.29 K/ul (4.8-10.8)
[2024-11-28 06:35] LABS: BUN Creatinine Ratio 18.1 (10-20); C Reactive Protein 13.05 mg/dl (0-0.5); Calcium 9.5 mg/dl (8.6-10.3); Creatinine Clr Calc Pharmacy 97.1 ml/min; Potassium 4.2 mmol/L (3.5-5.1)
[2024-11-28] MEDS ORDERED: VANCOMYCIN CONSULT ACTIVE PRN (08:48)
[2024-11-28] MEDS: VANCOMYCIN HCL 2,000 MG in SODIUM CHLORIDE 0.9% 500 ML IV ONE (10:39)
--- NOTE | 2024-11-28 12:23 | Pharmacy Report ---
Pharmacy PK ABX Note - Date of Service November 28, 2024 - Assessment and Plan Assessment 59 year old M receiving IV Cefazolin (11/25-) for treatment of cellulitis, change to IV Vancomycin today as cellulitis is worsening. Pertinent microbiologic data includes: Blood cultures x 48 hours no growth WBC wnl, afebrile. Day # 1 of Vancomycin therapy. Plan Vancomycin * Loading dose: 2000 mg IV x 1 * Maintenance dose: 1250 mg IV every 12 hours * Regimen is predicted to achieve target AUC/AYE of 400-600 mg/L.hr * Random level ordered for: 11/28/24 with AM labs Pharmacy will continue to follow and will adjust dose/frequency as necessary. Thank you. Pharmacy has transitioned to AUC monitoring for vancomycin. AUC/AYE is the preferred PK/PD target and is associated with decreased risk of nephrotoxicity compared to traditional trough targets.
[2024-11-28] MEDS: VANCOMYCIN HCL 1,250 MG in SODIUM CHLORIDE 0.9% 250 ML IV SCH (20:47)
--- NOTE | 2024-11-28 22:46 | Hospitalist Progress Note ---
Date of Service November 28, 2024 Assessment & Plan (1) Sepsis: Plan: 59-year-old male presenting for approximate 1 day of RLE erythema and edema. No known tick bites or insect bites. No drainage. Ultrasound RLE without evidence of DVT. Patient eats sepsis criteria on admission, vital signs improved with IVF and dose of ABX. Discontinue daptomycin and continue management with cefazolin for cellulitic infection. #Sepsis/Cellulitis Likely source RLE cellulitis, w/o sings of EOD; Sepsis criteria met upon initial arrival to ED; evaluation by hospiatlist team w/ hemodynamic stability - Admit - SIRS: HR 119 ; WBC > 15k (admission); now downtrending. - Currently hemodynamically stable - BP 132/80, MAP 97 -labs and vitals responding to antibitoics however skin continues to be red. - CMP WNL exception of total bilirubin 1.1 - Lactate 1.0, Mg 1.9, Ca 10.4; Procal 0.99, CRP 21.47 - PT/INR 12.1/1.1 - Pending blood cultures - US RLE w/o evidence of DVT - XR T/F R w/ soft tissue swelling, no fracture - IBW goal fluids 2018 cc; receiving - Stop daptomycin, no clear evidence that MRSA is causative factor at this time; continue Cefazolin 2g q8hr -start on vancomycin due to worseneing cellulitis. #ETOH Abuse Typically drinks 3-4 beers per night; last drink 1400 on 11/24; No reported h/o WD and no current symptoms - AWSS - Thiamine 10mg qAM + folic acid 1mg qAM - Lorazepam prn - Continue to monitor -no signs of alcohol abuse #Cardiomyopathy (nonischemic)/HTN/HLD/History of atrial thrombus Follows with senior [employer] adf developer, last visit 02/25/2024; W/o chest pain, SOB, palpitations - Jardiance, atorvastatin; ASA 81 mg daily for prior CVA - hold atorvastatin - No further anticoagulation - HTN- metoprolol, lisinopril Chronic conditions: RENA- CPAP previously, no current use Dispo: Admit Diet: Heart healthy VTE Prophylaxis: Lovenox Code: Full (2) Cellulitis of right leg: (3) Cardiomyopathy: (4) Alcohol use disorder: Admission and Anticipated Discharge Date Admission Date: November 25, 2024 Subjective Patient reports no new symptoms. He states his leg continues to have erythema. Physical Exam Physical Exam: General: No acute distress Skin: Warm and dry; RLE flanagan w/ erythema, slightly increased from yesterday. Head: Normocephalic, atraumatic Cardio: RRR, no M/G/R, S1 and S2 normal Resp: No respiratory distress, Lungs CTA Results & Data Results & Data Vital Signs (Past 12 Hours) Vital Signs Temp Pulse Resp BP BP Pulse Ox O2 Del Method 11/28/24 20:44 36.8 C 98 H 16 121/78 98 Room Air 11/28/24 14:31 36.9 C 101 H 18 107/71 96 Room Air PG Care Time/CCT Total # of Minutes Spent Total Time Spent with Patient: Total time spent is greater than 50% in coordination of care (as documented) at patient's floor/unit and/or counseling patient: Coding Level of Care Code 12187 SUB INP/OBS CARE 2/35MIN Diagnoses Sepsis A41.9 Cellulitis of right leg L03.115 Cardiomyopathy I42.9 Alcohol use disorder F10.90
[2024-11-29 06:57] LABS: Hematocrit (blood only) 41.5 % (42.0-52.0); Hemoglobin 14.2 g/dl (14.0-18.0); Mean Corpuscular Hemoglobin 33.1 pg (25.0-34.0); Mean Corpuscular Hgb Conc 34.2 g/dL (32.0-36.0); Mean Corpuscular Volume 96.7 fL (80.0-100.0); Mean Platelet Volume 9.3 fL (9.4-12.4); Platelet Count 203 K/uL (130-400); RDW Standard Deviation 49.8 fL (36.4-46.3); Red Blood Count 4.29 M/uL (4.70-6.10); White Blood Count 5.83 K/ul (4.8-10.8)
[2024-11-29 07:17] LABS: BUN Creatinine Ratio 25.6 (10-20); C Reactive Protein 5.79 mg/dl (0-0.5); Calcium 9.6 mg/dl (8.6-10.3); Creatinine Clr Calc Pharmacy 106.1 ml/min; Potassium 4.4 mmol/L (3.5-5.1)
--- NOTE | 2024-11-29 09:17 | Pharmacy Report ---
Pharmacy PK ABX Note - Date of Service November 29, 2024 - Assessment and Plan Assessment 59 year old M receiving IV Cefazolin (11/25-) for treatment of cellulitis, change to IV Vancomycin yesterday (11/28) as cellulitis is worsening. Pertinent microbiologic data includes: Blood cultures x 48 hours no growth WBC wnl, afebrile. Day # 2 of Vancomycin therapy. Plan Vancomycin * Maintenance dose: 1250 mg IV every 12 hours * Level of 12.0 mcg/mL today associated with a therapeutic AUC of 400-600 mg/L.hr * Repeat random level in ~2 days, or sooner if renal function changes significantly Pharmacy will continue to follow and will adjust dose/frequency as necessary. Thank you. Pharmacy has transitioned to AUC monitoring for vancomycin. AUC/AYE is the preferred PK/PD target and is associated with decreased risk of nephrotoxicity compared to traditional trough targets.
[2024-11-29 19:18] VITALS: PULSE 94; RESP 18
--- NOTE | 2024-11-29 21:24 | Hospitalist Progress Note ---
Date of Service November 29, 2024 Assessment & Plan (1) Sepsis: Plan: 59-year-old male presenting for approximate 1 day of RLE erythema and edema. No known tick bites or insect bites. No drainage. Ultrasound RLE without evidence of DVT. Patient eats sepsis criteria on admission, vital signs improved with IVF and dose of ABX. Discontinue daptomycin and continue management with cefazolin for cellulitic infection. #Sepsis/Cellulitis Likely source RLE cellulitis, w/o sings of EOD; Sepsis criteria met upon initial arrival to ED; evaluation by hospiatlist team w/ hemodynamic stability - Initally on antibiotics without MRSA coverage. Patient hpwever did not respond. -Now on vancomycin since 11/28 - Presented with SIRS: HR 119 ; WBC > 15k (admission); essentially has normalized. -Skin finally showing improvement on 11/29: as erythema area has decreased in size. - CMP WNL exception of total bilirubin 1.1 - cultures are negative. -procal. 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 He reports his pain is much improved. He also notices his redness has decreased. Physical Exam Physical Exam: General: No acute distress Skin: Warm and dry; RLE flanagan w/ erythema, The erythema has decreased in size, with normalization of skin color at the periphery. Head: Normocephalic, atraumatic Cardio: RRR, no M/G/R, S1 and S2 normal Resp: No respiratory distress, Lungs CTA Results & Data Results & Data Vital Signs (Past 12 Hours) Vital Signs Temp Pulse Resp BP Pulse Ox O2 Del Method 11/29/24 19:16 37.6 C H 94 H 18 111/73 94 Room Air 11/29/24 15:58 36.9 C 74 16 115/74 94 Room Air PG Care Time/CCT Total # of Minutes Spent Total Time Spent with Patient: Total time spent is greater than 50% in coordination of care (as documented) at patient's floor/unit and/or counseling patient: Coding Level of Care Code 21641 SUB INP/OBS CARE 2/35MIN Diagnoses Sepsis A41.9 Cellulitis of right leg L03.115 Cardiomyopathy I42.9 Alcohol use disorder F10.90
[2024-11-30 07:16] VITALS: BP 106/72; TEMP 98.2; O2SAT 96
[2024-11-30 11:04] LABS: Hematocrit (blood only) 42.4 % (42.0-52.0); Hemoglobin 14.5 g/dl (14.0-18.0); Mean Corpuscular Hemoglobin 33.1 pg (25.0-34.0); Mean Corpuscular Hgb Conc 34.2 g/dL (32.0-36.0); Mean Corpuscular Volume 96.8 fL (80.0-100.0); Mean Platelet Volume 9.3 fL (9.4-12.4); Platelet Count 267 K/uL (130-400); RDW Coefficient of Variation 13.4 % (11.5-14.5); RDW Standard Deviation 48.4 fL (36.4-46.3); Red Blood Count 4.38 M/uL (4.70-6.10); White Blood Count 8.97 K/ul (4.8-10.8)
[2024-11-30 11:15] LABS: BUN Creatinine Ratio 19.5 (10-20); C Reactive Protein 2.84 mg/dl (0-0.5); Calcium 9.7 mg/dl (8.6-10.3); Creatinine Clr Calc Pharmacy 104.9 ml/min; Potassium 4.3 mmol/L (3.5-5.1)
--- NOTE | 2024-11-30 17:39 | Discharge Summary ---
Discharge Summary Date of Service November 30, 2024 Principal Dx & Hospital Course #1 = Principal Diagnosis (1) Sepsis: 59-year-old male presenting with RLE erythema and edema. No known tick bites or insect bites. No drainage. Ultrasound RLE without evidence of DVT. Patient meets sepsis criteria on admission, vital signs improved with IVF and dose of ABX. eventually needed to progress to vancomycin for cellulitis #Sepsis/Cellulitis Likely source RLE cellulitis, w/o sings of EOD; Sepsis criteria met upon initial arrival to ED; evaluation by hospiatlist team w/ hemodynamic stability - Initally on antibiotics without MRSA coverage. Patient however did not respond. -improved on vancomycin since 11/28- transiton to linezolid for a week post discharge - blood cultures are negative. 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 ED course: CBC WBC 15.64, RBC 4.56, RDW 50.3, neutrophils 14.39, lymphs 0.57; PT 12.1; CMP total bilirubin 1.1; troponin 21.9, repeat 19.3; procalcitonin 0.99; UA negative for infection, presence of protein, glucose, ketones; BioFire negative; tibia- fibula x-ray (R) soft tissue swelling, no fracture; ultrasound duplex right lowe r extremity veins no DVT in the right lower extremity; EKG pending.; Provided with daptomycin in ED. Is a 50 mm PMHx cardiomyopathy, HTN, RENA, HLD, prediabetes, and severe obesity presenting for RLE edema, erythema, and tenderness x 1 day. He states that he is having pain of the area especially when putting pressure on it. Does feel warm to touch, per patient. Has not had any openings around the area, or oozing. Did not recall insect or tick bite. No additional bites known. Did episode of chills last evening x 1. Overall patient denying additional symptoms of fever, chest pain, shortness of breath, abdominal pain, N/V/D/C, or sick contacts. Please see Dr. Gerber's attestation for adjustments/additions to treatment plan. Discharge Exam Erythema of lower extremity as well receded from the line of demarcation with the skin marking device Discharge Plan Discharge Items Patient Disposition: Home - Self-Care Reason For Visit: CELLULITIS Discharge Diagnosis: right lower leg infection Activity: Per Instructions section Activity Comment: elevate when not standing Non-emergency contact: Primary Care Provider Call non-emergency contact if: your symptoms worsen Follow-up/Referrals: Kailash Arguello DO [Primary Care Provider] - 12/07/24 11:30 am (Appointment will be with [employer] PA-C) Diet: Carb Consistent or DM2 Addtl Attending Provider Instructions: off work till 12/07/24 elevated leg when resting hold atorvastatin while on linezolid Pending Studies at Discharge: No Stand-Alone Forms: [facility] [employer], Work/School Release, Smoking Cessation Medications and DC Order Prescriptions: New linezolid 600 mg tablet 600 mg PO BID Qty: 14 0RF Continued metoprolol succinate 50 mg tablet extended release 24 hr 50 mg PO QAM Qty: 90 3RF Jardiance 10 mg tablet 10 mg PO DAILY Qty: 90 3RF aspirin [Adult Aspirin Regimen] 81 mg tablet,delayed release (DR/EC) 81 mg PO QAM lisinopril 20 mg tablet 20 mg PO QAM Qty: 90 3RF Held atorvastatin 80 mg tablet 80 mg PO QAM Qty: 90 3RF Hold Instructions: Resume on 12/08/24. Discharge Orders: Discharge Order (Routine); Ordered 11/30/24 Ordered By: Adria Adame/Other Patient Handouts: ED Cellulitis Admission Data Admit Date/Time: 11/25/24 15:31 Attending Provider: Adria Gan Admit Provider: Juan Gerber Primary Care Provider: Kailash Arguello Other Providers: Juan Gerber Other Interventions: Discharge Summary Assessment (RN) Last Done: 11/30/24 11:32 Hospital Stay Data Consultations 11/25/24 15:04 ED Decision to Admit Stat Diagnostic Imagining Performed 11/25/24 11:46 US leg [US venous doppler LE RT] Stat Pending Results Patient Have Any Pending Studies at Discharge: No Discharge Instructions Given to Patient (Per Discharging Provider) off work till 12/07/24 elevated leg when resting hold atorvastatin while on linezolid Total Time Total Time Spent Total Time Spent (In Minutes): It required greater than 30 minutes to prepare this patient for discharge. Coding Level of Care Code 06480 INP/OBS DISCH >30 MIN Diagnoses Sepsis A41.9 Cellulitis of right leg L03.115 Cardiomyopathy I42.9 Alcohol use disorder F10.90
== END 2024-11-30 11:56 | disposition home or self-care (01) | DRG 872 ==
LOC: ED 11:19 → SUATTDRO 15:31 → EDINP 15:31 → 3N 18:24
DX: Z79.899 Other long term (current) drug therapy; G47.33 Obstructive sleep apnea (adult) (pediatric); E78.5 Hyperlipidemia, unspecified; L03.115 Cellulitis of right lower limb; E66.9 Obesity, unspecified; R73.03 Prediabetes; I10 Essential (primary) hypertension; A41.9 Sepsis, unspecified organism; Z79.82 Long term (current) use of aspirin; Z68.34 Body mass index [BMI] 34.0-34.9, adult; I42.9 Cardiomyopathy, unspecified; F10.10 Alcohol abuse, uncomplicated